=== PATIENT | female | born 1950 | race Caucasian/White ===

== ENCOUNTER 2019-08-02 01:59 | Emergency (ER) | payer MEDICARE, SELFPAY ==
[2019-08-02] VITALS (14 sets, daily range): BP systolic 140–177; BP diastolic 75–95; PULSE 65–80; RESP 16–18; TEMP 36.6–36.9; O2SAT 93–99; BMI 26.6
--- NOTE | 2019-08-02 02:05 | CT_ITS ---
PROCEDURE: CT HEAD/BRAIN WO CON CLINICAL INDICATION: stroke protocol Severe headache, left-sided weakness, hypertension COMPARISON: No exams were available for comparison TECHNIQUE: Axial images obtained. All CT scans at the facility use one or more dose reduction, viz: automated exposure control, ma/kV adjustment per patient size (including targeted exams where dose is matched to indication, i.e. head), or iterative reconstruction technique. FINDINGS: No midline shift, mass effect, intracranial hemorrhage, hydrocephalus, or extra-axial fluid collection is evident. There is no significant atrophy, the periventricular white matter appears normal. The calvarium has an unremarkable appearance. No mastoid effusion. No sinus air-fluid level. IMPRESSION: No acute intracranial finding Dictated by: Dr. Gal Villasenor MD 08/02/2019 10:[address] Gal Villasenor MD in [facility] 08/02/2019 10:34
--- NOTE | 2019-08-02 02:05 | XR_ITS ---
PROCEDURE: XR CHEST 2V CLINICAL HISTORY: stroke p left arm pain and left-sided weakness rotocol COMPARISON: No exams were available for comparison FINDINGS: The cardiomediastinal silhouette and pulmonary vascularity are within normal limits. Borderline emphysematous changes are noted with mild hyperexpansion of the lung esparza. There is no infiltrate and there is no pneumothorax. There is a double density seen through the cardiac shadow consistent with a small to moderate-sized hiatal hernia. There monitor lines overlying the chest. IMPRESSION: Mild COPD, no acute chest pathology noted Dictated by: Dr. Gal Villasenor MD 08/02/2019 08:[address] Gal Villasenor MD in [facility] 08/02/2019 08:35
--- NOTE | 2019-08-02 02:08 | ECG_ITS ---
APPROVED REPORT Exam: Resting ECG HR:71 bpm ECG Measurements Heart Rate 71 AXES DE 178 P 76 QRSd 82 QRS 60 QT 412 T 79 QTc 447 <Conclusion> Normal sinus rhythm Normal ECG Electronically signed by : Dave Lucas, 08/03/2019 17:28:29
--- NOTE | 2019-08-02 02:11 | PC.NURSE ---
pt transported to ct via stretcher and municipal bond trader. no new deficits. nih remains 0. gcs remains 15.
[2019-08-02 02:15] LABS: Basophils # 0.1 K/mm3 (0-0.2); Basophils % 0.6 % (0.1-2.0); Eosinophils # 0.1 K/mm3 (0.0-0.4); Eosinophils % 1.3 % (0.1-12.0); Hematocrit 37.7 % (37.0-47.0); Hemoglobin 12.5 g/dL (12.2-16.2); Lymphocytes # 4.4 K/mm3 (0.7-4.5); Mean Corpuscular HGB Conc 33.2 g/dL (31.8-35.4); Mean Corpuscular Hemoglobin 27.5 pg (27.0-31.2); Mean Corpuscular Volume 82.8 fl (81-99); Mean Platelet Volume 7.2 fl (7.4-10.4); Monocytes # 0.8 K/mm3 (0.1-1.0); Monocytes % 7.2 % (1.7-9.3); Neutrophils # 5.2 K/mm3 (1.8-7.8); Neutrophils % 48.9 % (37.0-80.0); Platelet Count 465 K/mm3 (142-424); Red Blood Count 4.55 M/mm3 (4.20-5.40); Red Cell Distribution Width 14.6 % (11.5-17.5); White Blood Count 10.6 K/mm3 (4.8-10.8)
[2019-08-02 02:22] LABS: Alanine Aminotransferase 21 U/L (12-78); Albumin Level 4.4 g/dl (3.5-5.0); Albumin/Globulin Ratio 1.4 (1.1-1.8); Alkaline Phosphatase 160 U/L (38-126); Anion Gap 13.9 mEq/L (5-15); Aspartate Amino Transferase 33 U/L (14-36); Bilirubin,Total 0.3 mg/dl (0.2-1.3); Blood Urea Nitrogen 14 mg/dl (7-17); Calcium 9.6 mg/dl (8.4-10.2); Carbon Dioxide 26 mmol/L (22.0-30.0); Chloride 93 mmol/L (98-107); Creatinine Clearance Estimated 63 mL/min (50-200); Estimated Glomerular Filt Rate 83 ml/min (>60); GFR (African American) 100 ML/MIN (>60); Globulin 3.1 g/dL (1.3-3.2); Glucose 87 mg/dl (74-100); Potassium 4.9 mmoL/L (3.5-5.1); Sodium 128 mmol/L (136-145); Total Protein,Serum 7.5 g/dl (6.3-8.2)
[2019-08-02 02:38] LABS: Troponin I < 0.01 ng/ml (0.00-0.034)
--- NOTE | 2019-08-02 03:01 | PC.NURSE ---
granddaughter informs this nurse that she will be making sure that md keeps this patient. states that she wants her admitted and monitored regardless of lab or radiology results .
--- NOTE | 2019-08-02 03:50 | PC.NURSE ---
pt ambulated without incident from room 6 to the bathroom closest to that room which was approx 60 feet total back to the bed. pt required no assistance with transfer.
[2019-08-02 03:57] LABS: Microscopic, Urine URINE MICROSCOPIC (MICROSCOPIC)
[2019-08-02 03:59] LABS: Appearance,Urine CLEAR (Clear); Bilirubin,Urine Negative (Negative); Blood, Urine Negative (Negative); Color,Urine YELLOW (Yellow); Glucose,Urine (UA) Negative (Negative); Ketones,Urine Negative (Negative); Leukocyte Esterase,Urine TRACE (Negative); Nitrate,Urine Negative (Negative); Protein,Urine Negative (Negative); Specific Gravity, Urine 1.015 (1.005-1.030); Urobilinogen,Urine 0.2 EU/dl (0.2)
[2019-08-02 04:47] LABS: Troponin I < 0.01 ng/ml (0.00-0.034)
--- NOTE | 2019-08-02 04:59 | HMH.EDNEU ---
ED Disposition Clinical Impression: Hypertensive emergency without congestive heart failure, Hyponatremia Transient cerebral ischemia Qualifiers: Transient cerebral ischemia type: unspecified Qualified Code(s): G45.9 - Transient cerebral ischemic attack, unspecified Diabetes mellitus Qualifiers: Diabetes mellitus type: type 2 Diabetes mellitus alf insulin use: unspecified tank terminal gauger insulin use status Diabetes mellitus complication status: with other specified complication Qualified Code(s): E11.69 - Type 2 diabetes mellitus with other specified complication Disposition: Xfer Short-Term Hosp Condition on Discharge: Good - Critical Care Critical Care Time: No Attestation: On 08/02/19, the high probability of a clinically significant, sudden or life threatening deterioration of the following system(s) required my full and direct attention, intervention and personal management. The time I documented below is in addition to time spent performing reported procedures but includes the following listed in this critical care notation. Medical Decision Making - Medical Records Medical records reviewed: Yes: I reviewed the patient's medical records. - Popeye Inquiry Pt receiving controlled substance: No Vital Signs: 08/02/19 01:57 08/02/19 02:10 08/02/19 03:06 Temperature 97.8 F 98.5 F Temperature Source Oral Oral Pulse Rate [Right Brachial] 68 80 67 Respiratory Rate 17 16 18 Blood Pressure [Right Arm] 165/75 H 163/95 H 159/87 H Blood Pressure Mean [Right Arm] 105 117 111 Blood Pressure Source [Right Arm] Automatic Cuff Blood Pressure Position [Right Arm] Sitting Sitting 02 Sat by Pulse Oximetry 98 98 95 Oxygen Delivery Method Room Air Room Air Room Air 08/02/19 04:14 08/02/19 05:11 08/02/19 05:19 Temperature Temperature Source Pulse Rate [Right Brachial] 66 67 68 Respiratory Rate 18 18 18 Blood Pressure [Right Arm] 163/81 H 174/92 H 170/86 H Blood Pressure Mean [Right Arm] 108 119 114 Blood Pressure Source [Right Arm] Blood Pressure Position [Right Arm] 02 Sat by Pulse Oximetry 99 96 97 Oxygen Delivery Method Room Air Room Air Room Air 08/02/19 05:29 Temperature Temperature Source Pulse Rate [Right Brachial] 65 Respiratory Rate 18 Blood Pressure [Right Arm] 165/79 H Blood Pressure Mean [Right Arm] 107 Blood Pressure Source [Right Arm] Blood Pressure Position [Right Arm] 02 Sat by Pulse Oximetry 96 Oxygen Delivery Method Room Air - Lab Data Lab results reviewed: Yes: I reviewed the patient's lab results. Lab Results 08/02/19 02:02: WBC 10.6, RBC 4.55, Hgb 12.5, Hct 37.7, MCV 82.8, MCH 27.5, MCHC 33.2, RDW 14.6, Plt Count 465 H, MPV 7.2 L, Neut % (Auto) 48.9, Lymph % (Auto) 42.0, Panola % (Auto) 7.2, Eos % (Auto) 1.3, Baso % (Auto) 0.6, Neut # (Auto) 5.2, Lymph # (Auto) 4.4, Panola # (Auto) 0.8, Eos # (Auto) 0.1, Baso # (Auto) 0.1 08/02/19 02:02: Sodium 128 L, Potassium 4.9, Chloride 93 L, Carbon Dioxide 26, Anion Gap 13.9, BUN 14, Creatinine 0.70, Estimated Creat Clear 63, Estimated GFR 83, Est GFR ( Amer) 100, Glucose 87, Calcium 9.6, Total Bilirubin 0.3, AST 33, ALT 21, Alkaline Phosphatase 160 H, Troponin I < 0.01, Total Protein 7.5, Albumin 4.4, Globulin 3.1, Albumin/Globulin Ratio 1.4 08/02/19 03:51: Urine Color Yellow, Urine Appearance Clear, Urine pH 7.0, Ur Specific Sherrill 1.015, Urine Protein Negative, Urine Glucose (UA) Negative, Urine Ketones Negative, Urine Blood Negative, Urine Nitrate Negative, Urine Bilirubin Negative, Urine Urobilinogen 0.2, Ur Leukocyte Esterase Trace, Urine WBC 3-5, Ur Squamous Epith Cells 3-5 08/02/19 04:12: Troponin I < 0.01 Result diagrams: 08/02/19 02:02 08/02/19 02:02 Orders (Tests/Meds): ED MEDICATIONS Discontinued Medications Generic Name Dose Route Start Last Admin Trade Name Freq PRN Reason Stop Dose Admin Ketorolac Tromethamine 30 mg 08/02/19 04:10 08/02/19 04:25 Toradol 30mg/Ml Vial IV 08/02/19 04:11 30
--- NOTE | 2019-08-02 05:25 | PC.NURSE ---
MD entering the room at this time to discuss diagnostic findings with patient and family. discussed with family that there were no acute findings for this visit that could be addressed in the ED tonight and that he recommended for the patient to follow up with her primary care doctor or her pelts skinner for the continuing treatment of her chronic diagnosed illness (hypertension). MD asked pt and family if they had any additional questions about pt's plan of care or discharge instructions. Pt family verbally aggressive towards MD at this time stating you did one damn blood test the whole time she was here and you're just going to send her home. she can't even walk and you're just letting her go home. she also stated she needs to see a becka pelts skinner or someone who will do something for her tonight- she needs monitored. At this time, MD reviewed with family all of the diagnostic testing preformed on the patient since her arrival. explained to the family that the cardiac work up that was done on the pt has no acute findings that needed immediate cardiology attention and he would ensure that the patient had an appointment first thing saturday morning with the pelts skinner. MD encouraged the family to keep a journal of pt BP readings so the cardiology visit could be thorough and she could be treated accordingly. At this time the family is demanding to be admitted to see cardiology. At this time, MD assessed LOC and gait of patient. MD continues to be apologetic and sympathetic to the pt family. MD asked the patient of her wishes for her plan of care, and the family interrupted saying I am the POA and i will be answering the questions. MD politely asked the patient of her wishes once again where patient expressed that she just wanted what her daughter wanted. left the room at this time to discuss admission with PCP. This event was witnessed per BENJA Larsen.
--- NOTE | 2019-08-02 05:28 | PC.NURSE ---
md in to speak with grdaughter and patient. granddaughter extremely aggressive according to staff available to overhear. arrangements made for admit.
--- NOTE | 2019-08-02 06:15 | PC.NURSE ---
call placed to [facility] for possible transfer and discussion between the supervisor boiler repair and dr bacon
--- NOTE | 2019-08-02 06:16 | PC.NURSE ---
call out to [facility] for pt transfer per MD
--- NOTE | 2019-08-02 06:20 | PC.NURSE ---
speaking to [facility]
--- NOTE | 2019-08-02 06:32 | PC.NURSE ---
accepted pt per emergency response coordinator
--- NOTE | 2019-08-02 06:45 | PC.NURSE ---
call received from [facility] requesting [facility]
--- NOTE | 2019-08-02 07:15 | PC.NURSE ---
report to jade miller at [facility]
--- NOTE | 2019-08-02 07:29 | PC.NURSE ---
Calling [facility] for transfer at this time.
--- NOTE | 2019-08-02 07:30 | PC.NURSE ---
pt alert and oriented x 4 pt denies any c/o at present. pt updated on plan of care
--- NOTE | 2019-08-02 08:30 | PC.NURSE ---
pt sleeping, easily aroused. denies any c/o at present
--- NOTE | 2019-08-02 08:49 | PC.NURSE ---
contacted [facility] to check on status of transfer, stated they will be up soon to transport pt, stated they just finished their morning check offs.
--- NOTE | 2019-08-02 09:08 | PC.NURSE ---
report to [facility].
== END 2019-08-02 09:12 | disposition short-term general hospital (02) ==
LOC: ER 02:06 → 2ND 06:52 → ER 07:46
PROVIDERS: Emergency Provider Emergency Medicine; PCP Nurse Practitioner Family
DX: I16.1 Hypertensive emergency (principal); E87.1 Hypo-osmolality and hyponatremia; G45.9 Transient cerebral ischemic attack, unspecified; E11.69 Type 2 diabetes mellitus with other specified complication; Z79.84 Long term (current) use of oral hypoglycemic drugs; Z88.2 Allergy status to sulfonamides; Z88.5 Allergy status to narcotic agent
CPT/HCPCS: 70450; 71046; 80053; 81001; 84484; 85025; 93005; 96374; 96375; 99284; 99285

== ENCOUNTER 2020-04-29 10:35 | Day surgery (SDC) | payer MEDICARE, MEDICAID, SELFPAY ==
[2020-04-27 14:23] VITALS: BMI 34.0
[2020-04-29 12:04] VITALS: BP 134/90; PULSE 63; RESP 16; TEMP 36.5; O2SAT 97
[2020-04-29 12:20] LABS: POC Glucose,Bedside 90 (70-110)
[2020-04-29 12:34] LABS: Coronavirus 19 IgG Antibody Positive (Negative); Coronavirus 19 IgM Antibody Negative (Negative)
[2020-04-29 12:46] VITALS: O2SAT 97
--- NOTE | 2020-04-29 13:09 | P.PN_ITS ---
[facility] Anesthesia Checklist - Patient Identification Patient Identification: Arm Band - Structural Data Admitted From: Home Planned Operative Procedure/s: EGD/Colonoscopy Consent for Planned Operative Procedure(s) Verified: Yes - Airway Assessment C-Spine Mobility Assessed: Yes TMJ Mobility Assessed: Yes Dentition: Good Dentition - Neurological Assessment Level of Consciousness: Awake - Anesthesia Plan Anesthesia Risk discussed: Yes Anesthesia Plan: Verified ASA Class: III Anesthesia Type: MAC [facility] History I have reviewed the patient's past medical history: Yes Medical History: Reports:: Diabetes Mellitus Type 2, Seizures Denies:: Cancer, Diabetes Mellitus Type 1, MRSA *Have you ever received a pneumonia vaccine?: Yes *Have you received a flu vaccine this season?: Yes Anesthesia experience/problems:: None Amputation: No Fractures: No - *Social History Smoking Status: Current every day smoker Tobacco Type: cigarettes # Packs/Day (cigarettes): 1 Alcohol Intake: never Substance Use Type: denies use *Occupational Status:: disabled *Travel in the last 8 weeks: None Family Hx:: Unable to obtain
--- NOTE | 2020-04-29 13:18 | HMH.PROC ---
[facility] Procedure Note Procedure Note:: Upper Endoscopy Procedure Report: Esophagogastroduodenoscopy with cold biopsies Endoscopost: Jose Nguyen II, MD Referring Physician: RENATE Herrmann Date of Procedure: 04/29/2020 Equipment: Olympus GIF 190 standard upper endoscope Sedation: MAC sedation Indications: Mrs. Araujo is a 69-year-old female with iron deficiency anemia. The patient did have hemoglobin 9.2 and hematocrit 29.1 by labs on 03/15/2020. The patient's iron saturation was 10% and total iron 39. She did have a blood transfusion while hospitalized at [facility] with respiratory failure secondary to COPD in February 2020. She has received 2 additional parenteral intravenous iron infusions. The patient is on Plavix and aspirin. She does have a history of heartburn and reflux which is controlled. She was diagnosed with a hiatal hernia with me 15 years ago. She reports no melena, hematochezia or bright red rectal bleeding. She reports no abdominal pain, weight loss or dysphagia. Procedure: Prior to the procedure, a history and physical exam was performed, and patient's medications and allergies were reviewed. The risks, benefits and alternatives of the sedation and procedure were discussed with the patient. All questions were answered and informed consent was obtained. The patient was brought to the procedure room. Patient identification and proposed procedure were verified by the physician and the nurse. The patient was placed in a left lateral decubitus position and the scope was passed under direct vision. Throughout the procedure, the patient's blood pressure, pulse, and oxygen saturations were monitored continuously. The upper GI endoscopy was accomplished without difficulty. The patient tolerated the procedure well. Findings: The scope was passed directly into the upper esophagus and advanced to the third portion of the duodenum. The post bulbar duodenum and duodenal bulb were normal with normal mucosa and conniventes. The scope was withdrawn through a normal duodenal bulb and pylorus into the stomach. There was moderate linear reactive gastropathy of the antrum and body of the stomach. Upon retroflexion there was a large 8 cm hiatal hernia. There was at least one linear Simone's erosion but no ulcerations. Biopsies were taken from the antrum and lesser curvature. The scope was then withdrawn into the esophagus. There was a distal Schatzki's ring. There was no evidence of Rbuio's esophagus or reflux esophagitis. There was evidence of tertiary contractions and presbyesophagus/esophageal dysmotility. The remainder of the esophageal mucosa was normal. Impression: 1. Nonerosive GERD with presbyesophagus/esophageal dysmotility 2. Large 8 cm hiatal hernia (1 single Simone's erosion) 3. Moderate linear reactive gastropathy Plan: I am not convinced that the upper endoscopic findings would result in her iron deficiency anemia. I will follow-up the biopsies. I will proceed with diagnostic colonoscopy.
--- NOTE | 2020-04-29 13:42 | [facility].PROC ---
[facility] Procedure Note Procedure Note:: Colonoscopy Procedure Report: Colonoscopy with APC ablation and cold snare polypectomy Endoscopist: Jose Nguyen II, MD Referring physician: RENATE Herrmann Date of Procedure: April 29, 2020 Equipment: Olympus 190 variable stiffness pediatric colonoscope Sedation: MAC sedation Indication: Mrs. Araujo is a 69-year-old female who is here for diagnostic colonoscopy secondary to moderate iron deficiency anemia. She was found to be anemic during her admission to [facility] in February 2020. Her hemoglobin/hematocrit on March 15, 2020 was 9.2 and 29.1 with an iron saturation of 10%. The patient does have normal kidney function with creatinine 0.84. The patient reports no bright red rectal bleeding or hematochezia. She is on Plavix and aspirin. She reports no abdominal pain, weight loss, change in her bowel habits or family history of colon cancer. Her last colonoscopy was 7 years ago (Dr. Salo You) and she had a couple of polyps removed but she states that this was otherwise normal. Procedure: Prior to the procedure, a history and physical exam was performed, and patient's medications and allergies were reviewed. The risks, benefits and alternatives of the sedation and procedure were discussed with the patient. All questions were answered and informed consent was obtained. The patient was brought to the procedure room. Patient identification and proposed procedure were verified by the physician and the nurse. The patient was placed in a left lateral decubitus position and the scope was passed under direct vision. Throughout the procedure, the patient's blood pressure, pulse, and oxygen saturations were monitored continuously. The colonoscopy was accomplished without difficulty. The patient tolerated the procedure well. Findings: On digital rectal examination there was normal rectal tone. There were no external hemorrhoids. The colonoscope was introduced through the anal canal to the rectum and advanced to the cecum. The ileocecal valve and appendiceal orifice were identified. The scope was advanced a short distance into the ileum which appeared grossly normal. The scope was then withdrawn into the colon. There were 3 AVMs/angiodysplasias in the cecum that were ablated/coagulated with APC (argon plasma coagulation). There were a total of 4 polyps (ascending x1 (5 mm), transverse x1 (5 mm), descending x1 (4 mm) and sigmoid x1 (4 mm)) which were all removed via cold snare polypectomy. There were scattered diverticuli throughout the descending and sigmoid colon (LEFT colon). The rectum itself was normal. Upon retroflexion within the rectum there were grade 1-2 internal hemorrhoids. The preparation was excellent throughout with [place] Preparation Score of 9. The cecal time was 15 minutes. Impression: 1. Cecal angiodysplasia/AVM (x3) status post APC ablation/coagulation 2. Colonic polyps x4 3. Left-sided diverticulosis 4. Grade 1-2 internal hemorrhoids Plan: The angiodysplasia/AVMs were nonbleeding. I did coagulate these but I am still not convinced this is the primary source of her iron deficiency anemia. Given the fact that she has been on Plavix and has a single Simone's erosion and AVMs, this could be multifactorial. I would recommend Hemoccult testing. If the patient is strongly Hemoccult positive, I would consider PillCam (video capsule enteroscopy). I will follow up the polyp histology. If the polyps are adenomatous, I would recommend repeat surveillance colonoscopy again in 5 years. I would encourage bulk fiber supplementation on a maintenance basis.
[2020-04-29 13:45] VITALS: BP 85/51; PULSE 56; RESP 18; O2SAT 95
[2020-04-29 13:55] VITALS: BP 101/53; PULSE 62; RESP 18; O2SAT 95
[2020-04-29 14:05] VITALS: BP 125/68; PULSE 56; RESP 18; O2SAT 95
[2020-04-29 14:15] VITALS: BP 148/82; PULSE 56; RESP 18; O2SAT 99
== END 2020-04-29 14:15 | disposition home or self-care (01) ==
LOC: OUTP 10:41
PROVIDERS: PCP Nurse Practitioner Family; Visit Provider Internal Medicine Gastroenterology
PROC: 0DJ08ZZ Inspection of Upper Intestinal Tract, Via Natural or Artificial Opening Endoscopic (ICD-10-PCS; CPT 43235; principal; 2020-04-29 12:30)
DX: K55.20 Angiodysplasia of colon without hemorrhage (principal); K63.5 Polyp of colon; K57.30 Diverticulosis of large intestine without perforation or abscess without bleeding; K64.0 First degree hemorrhoids; K21.9 Gastro-esophageal reflux disease without esophagitis; K22.4 Dyskinesia of esophagus; K22.2 Esophageal obstruction; K44.9 Diaphragmatic hernia without obstruction or gangrene; K31.9 Disease of stomach and duodenum, unspecified; Z86.010 Personal history of colon polyps; Z79.02 Long term (current) use of antithrombotics/antiplatelets; Z79.82 Long term (current) use of aspirin; Z86.16 Personal history of COVID-19; Z87.19 Personal history of other diseases of the digestive system; D50.9 Iron deficiency anemia, unspecified
CPT/HCPCS: 43239; 45385; 45388; 36415; 82962; 86328; 88305; C2618

== ENCOUNTER → 2020-05-14 12:19 | Outpatient (CLI) | payer MEDICARE, MEDICAID, SELFPAY | PROVIDERS: Visit Provider Internal Medicine Gastroenterology | DX: D64.9 Anemia, unspecified (principal) ==

== ENCOUNTER → 2020-05-15 12:13 | Outpatient (CLI) | payer MEDICARE, MEDICAID, SELFPAY | PROVIDERS: Visit Provider Internal Medicine Gastroenterology | DX: D64.9 Anemia, unspecified (principal) ==

== ENCOUNTER → 2020-05-16 11:00 | Outpatient (CLI) | payer MEDICARE, MEDICAID, SELFPAY | PROVIDERS: Visit Provider Internal Medicine Gastroenterology | DX: D64.9 Anemia, unspecified (principal) ==

== ENCOUNTER 2024-11-13 08:52 | Outpatient (CLI) | payer MEDICARE, MEDICAID, SELFPAY ==
--- OUTSIDE RECORDS SUMMARY | 2020-04-08 09:46 | XMS_ITS | Encounter Summary ---
Author Organization [facility] Address [address] [place] [address] Care Team Providers Care Process Engineering Intern Name Role Phone MontemayorMegan frankel JAIR Primary Care Provider [phone] Encounter Details Date Type Department Care Team (Late st Contact Info) Description 04/08/2020 8:46 AM EST Hospital Encounter [facility] PUL[facility]ICAL [facility]ARE MEDICINE [address] [place] [phone] Social History Tobacco Use Types Packs/Day [...] Narrative 04/08/2020 10:21 AM EST Colleen Araujo [id number] 04/08/2020 Chest X-Ray PA & Lateral Indication: [...] documented as of this encounter Care Teams Process Engineering Intern Relationship Specialty Start Date End Date Megan Montemayor APRN [address] [place] [address] PCP - General Nurse Practitioner 08/02/19 documented as of this encounter
[2024-11-13 20:36] LABS: Hematocrit 42.9 % (37.0-47.0); Hemoglobin 12.5 g/dL (12.2-16.2); Immature Granulocytes % 0.2 %; Mean Corpuscular HGB Conc 29.1 g/dL (31.8-35.4); Mean Corpuscular Hemoglobin 27.5 pg (27.0-31.2); Mean Corpuscular Volume 94.3 fl (81-99); Nucleated Red Blood Cells % 0 %; Platelet Count 323 K/mm3 (142-424); Red Blood Count 4.55 M/mm3 (4.20-5.40); Red Cell Distribution Width-SD 45.1 fL; White Blood Count 20.0 K/mm3 (4.8-10.8)
[2024-11-13 21:03] LABS: Total Cells Counted 100
[2024-11-13 21:04] LABS: RBC Morphology Normal
[2024-11-13 21:31] LABS: Alanine Aminotransferase 27 U/L (12-78); Albumin Level 3.9 g/dl (3.5-5.0); Albumin/Globulin Ratio 1.7 (1.1-1.8); Alkaline Phosphatase 148 U/L (38-126); Anion Gap 17.4 mEq/L (5-15); Aspartate Amino Transferase 26 U/L (14-36); Bilirubin,Direct 0.5 mg/dl (0.0-0.4); Bilirubin,Indirect 0.1 mg/dL (0.0-0.9); Bilirubin,Total 0.6 mg/dl (0.2-1.3); Bilirubin,Unconjugated 0.1 mg/dL (0.0-1.1); Blood Urea Nitrogen 19 mg/dl (7-17); Calcium 9.0 mg/dl (8.4-10.2); Carbon Dioxide 27 mmol/L (22.0-30.0); Chloride 103 mmol/L (98-107); Creatinine,Serum 0.90 mg/dl (0.52-1.04); Estimated Glomerular Filt Rate 61 ml/min (>60); GFR (African American) 74 ML/MIN (>60); Globulin 2.3 g/dL (1.3-3.2); Glucose 80 mg/dl (74-100); Potassium 5.4 mmoL/L (3.5-5.1); Sodium 142 mmol/L (136-145); Total Protein,Serum 6.2 g/dl (6.3-8.2)
[2024-11-13 22:15] LABS: Hepatitis C Ab Qual. W/ RFX NEGATIVE (Negative)
[2024-11-15 07:10] LABS: Hepatitis B Surface Antigen Negative (Negative)
--- OUTSIDE RECORDS SUMMARY | 2024-11-16 08:55 | XMS_ITS | Continuity of Care Document ---
Author Organization [place] - [place] Address [address] [place] [address] Assessment Encounter Date Assessment Date Assessment LastModified by Organization Details LastModified Time 10/23/2024 10/23/2024 Patient presente d to office today for their Medicare Annual Wellness Visit. Education was provided on healthy nutrition, including a diet rich in fruits and vegetables, minimizing simple carbohydrates, salt, and saturated fats. Encouraged regular cardiovascular exercise such as walking at least 30 minutes daily, 5 times per week. Emphasized preventive health measures and educated pt on fall prevention and community-based lifestyle interventions to help reduce health risks and promote healthy living. Female patient with history of COPD and diabetes, presenting with persistent cold symptoms since August, including cough with productive sputum, runny nose, and allergies. Upper Respiratory Infection with Possible COPD Exacerbation Assessment: Patient reports persistent cold symptoms since August, including cough with productive sputum, runny nose, and allergies. Currently using Zyrtec, Singulair, and Azelastine nasal spray for allergy management. Physical examination reveals coarseness and wheezing in the right lung base, suggesting a possible COPD exacerbation. However, the overall presentation is more consistent with a cold and allergies rather than a severe COPD exacerbation. Plan: - Prescribe Azithromycin for 5 days - Prescribe oral steroids for 5 days - Continue current inhalers and NAB treatments - Continue Singulair and Zyrtec for allergy management - Schedule low-dose chest CT at [place] - Obtain urinalysis to rule out UTI Diabetes Mellitus, Type 2 Assessment: Patient's glycemic control appears to be well-managed with a recent A1c of 6.4%. No reported issues with swelling feet, ankle sores, or other diabetic complications. Plan: - Continue current diabetes management - Diabetic eye exam scheduled for November 13 Preventive Care Assessment: Patient is due for annual preventive screenings and vaccinations. Plan: - Schedule mammogram at [place] - Schedule annual low-dose chest CT at [place] - Advise patient to receive flu vaccine starting November 11 - Obtain blood work Nocturia Assessment: Patient reports urinary frequency every 1-2 hours for the past 2-3 nights. Denies pain with urination. Plan: - Obtain urinalysis to rule out UTI Depression Assessment: Patient reports good mood control on current medication regimen of Wellbutrin and Zoloft. Plan: - Continue current antidepressant medications: Wellbutrin and Zoloft Not available 10/23/2024 09:37:00 Plan of Treatment Reminders Order Date Submit Date Provider Last Modified By Organization Details Last Modified Time Details Appointments FOLLOW UP 30 2025 09:00A M Ayleen Montemayor APRN Not available Not available Not available Lab urinalysi s complete, reflex culture 2024 025 [facility] [address] [place] [address], [id number], 10/27/2024 19:07:26 HbA1c (hemoglob in A1c), blood [address], [address], 10/23/2024 08:33:40 CMP, serum or plasma 2024 025 [facility] [address] [place] [address], [id number], 10/27/2024 19:07:26 CBC w/ auto diff 2024 025 [facility] [address] [place] [address], [id number], 10/27/2024 19:07:25 Referral None recorded. Procedures None recorded. Surgeries None recorded. Imaging MAMMO, screening , digital, bilateral - same day as LDCT please [address] Centralized Scheduling, [address] , [place], [address], 11/06/2024 13:08:29 LDCT, chest, for lung cancer screening - Secondary dx: F17.210; same day as mammo please [address] Centralized Scheduling, [address] [place], [address], 11/06/2024 13:08:09 Medication Orders azithromy raghav 250 mg tablet 2024 025 [facility], [address] [place] [address], [id number], 10/23/2024 15:15:52 prednison e 20 mg tablet 2024 025 [facility], [address] [place] [address], [id number], 10/23/2024 15:15:53 Patient TargetsNo targets recorded. Patient Instructions Encounter Date Encounter Id Patient Instructions Last Modified By Organization Details Last Modified Time 10/23/2024 [id number] Quitting Tobacco : Care Instructions Not available 10/23/2024 08:33:39 Discussed and explained advance directives such as standard forms to the patient and caregiver. Face to face discussion lasted for a duration of _5__ minutes. Not available 10/23/2024 08:25:49 Reason for Referral None Reported. Results Created Date Observation Date Name Description Value Unit Range Abnormal Flag Note LastModifiedBy Organization Detail LastModifiedTime 10/24/1910/23/2024 HbA1c (hemo globi n A1c), blood HbA1c 6.4 Not Available [address], [address], 10/23/2024 08:20:45 Result Notes None recorded. Problems Name Problem SNOMED Code Status Onset Date Resolution Date Notes Provider Name and Address Organization Details Recorded Time Tobacco dependen ce caused by cigarett es [id number] 719706 Active 2019 Problem Code: F17.210; Problem Code Type: ICD-10; Megan Montemayor APRN [address] [place], [address] , [employer] 5 09:30:26 Type 2 diabetes mellitus without complica tion 362100353 Active 2019 Not Available [facility] 3 09:26:15 Atherosc lerosis of coronary artery without angina pectoris 83336179449 4103 Active 2019 Not Available [facility] 3 09:26:15 Chronic obstruct davida pulmonar y disease 14186430 Active 2019 Problem Code: J44.9; Problem Code Type: ICD-10; Not Available [facility] 3 09:26:15 Finding of general energy 846701115 Completed 201908/30/2019 Problem Code: R53.83; Problem Code Type: ICD-10; Megan Montemayor APRN [address] [place], [address] , [employer] 2 15:54:08 Body mass index 30+ - obesity 988447645 Completed 201911/29/2020 WLC89Lpe es: 'Z68.3'; Megan Montemayor APRN [address] [place], [address] , [employer] 5 09:36:22 Nausea and vomiting 41214341 Completed 201904/18/2022 Problem Code: R11.2; Problem Code Type: ICD-10; MAXINE MYNEAR null, [employer] 3 09:26:06 Diarrhea 31561036 Completed 201904/18/2022 Problem Code: R19.7; Problem Code Type: ICD-10; MAXINE MYNEAR null, [employer] 3 09:26:06 Elevated blood-pr essure reading without diagnosi s of hyperten markell 425194216 Completed 201908/30/2019 Not Available [facility] 2 22:17:12 Hyperten sive disorder 44826626 Active 2019 Problem Code: I10; Problem Code Type: ICD-10; Not Available [facility] 3 09:26:15 Transien t cerebral ischemia 133133475 Active 2019 Not Available [facility] 3 09:26:15 Disorder of upper respirat ory system 915905176 Completed 201912/15/2019 Problem Code: J06.9; Problem Code Type: ICD-10; Megan Montemayor APRN [address] [place], [address] , [employer] 2 15:54:05 Herpes zoster 7837306 Completed 201903/11/2020 Problem Code: B02.9; Problem Code Type: ICD-10; Not Available [facility] 2 22:17:10 Influenz a vaccine needed 36931544340 06 Completed 201907/22/2020 Problem Code: Z23; Problem Code Type: ICD-10; Megan Montemayor APRN [address] [place], [address] , [employer] 2 15:54:17 Herpes zoster 1396613 Completed 201903/11/2020 Problem Code: B02.9; Problem Code Type: ICD-10; Not Available [facility] 2 22:17:10 Screenin g mammogra phy Completed 201903/11/2020 Problem Code: Z12.31; Problem Code Type: ICD-10; Megan Montemayor APRN [address] [place], [address] , [employer] 2 15:54:21 Gastroes ophageal reflux disease without esophagi tis 526550391 Active 2020 Not Available [facility] 3 09:26:15 Acute exacerba tion of chronic obstruct davida pulmonar y disease 191145220 Completed 202003/11/2020 Problem Code: J44.1; Problem Code Type: ICD-10; Megan Montemayor APRN [address] [place], [address] , [employer] 4 08:30:26 Acute-on -chronic respirat ory failure 61247943 Completed 202011/29/2020 Problem Code: J96.21; Problem Code Type: ICD-10; Not Available [facility] 2 22:17:11 Iron deficien cy anemia 03080215 Active 2020 Problem Code: D50.9; Problem Code Type: ICD-10; Not Available [facility] 3 09:26:15 Herpes zoster 1328067 Active 2020 Problem Code: B02.9; Problem Code Type: ICD-10; Not Available [facility] 3 09:26:15 Influenz a vaccine needed 30752650369 06 Completed 202012/30/2020 Problem Code: Z23; Problem Code Type: ICD-10; Megan Montemayor APRN [address] [place], [address] , [employer] 2 15:54:17 Body mass index 30+ - obesity 321539024 Active 2020 Problem Code: Z68.34; Problem Code Type: ICD-10; Megan Montemayor APRN [address] [place], [address] , [employer] 5 09:36:22 Moderate recurren t major depressi on 36703704 Active 2023 Megan Montemayor APRN [address] [place], [address] , [employer] 4 09:35:42 Type 2 diabetes mellitus 28371667 Active 2024 Megan Montemayor APRN [address] [place] [address], [address] , [employer] 5 09:13:27 Problem Notes None recorded. Procedures Surgical History Date Name Laterality Status Provider Name and Address Organization Details Recorded Time 4 Most Recent Mammogram completed MAXINE MORTON [employer] 11/13/2023 09:05:32 section completed [facility] 08/29/2022 11:48:21 Carpal Tunnel Surgery completed JANY [employer] 08/29/2022 11:48:37 Imaging Results None recorded. Procedure Notes None recorded. Medical Equipment None Reported. Allergies Allergen ID Allergen Name Allergen Category Reaction Reaction Severity Criticality Documentation Date Start Date Code Code System Note Provider Name and Address Organization Details Recorded Time 76672 Substance with morphinan structure and opioid receptor agonist mechanism of action (substanc e) medicatio n Not available Not available Not available 10/17/2021 42238 9000 SNOMED Catherine Clay archana, [employer] 3 13:59:54 21850 sulfameth azine medicatio n Not available Not available Not available 10/17/2021 43453 RxNorm Not Available [facility] 2 22:56:51 18487 acetamino phen / hydrocodo ne medicatio n Not available Not available Not available 10/17/2021 17007 2 RxNorm Not Available [facility] 2 22:56:51 04348 codeine medicatio n Not available Not available Not available 10/17/2021 2670 RxNorm Not Available [facility] 2 22:56:51 57583 acetamino phen / oxycodone medicatio n Not available Not available Not available 10/17/2021 72214 3 RxNorm Not Available [facility] 2 22:56:51 Medications Name Sig Start Date Stop Date Status Note LastModified by Organization Details LastModified Time losartan 50 mg tablet TAKE 1 TABLET BY MOUTH EVERY DAY active Not Available Not Available No t Available metformin 500 mg tablet TAKE ONE TABLET BY MOUTH EVERY DAY with MEAL 11/12 completed Not Available Not Available Not Available bupropion HCl SR 150 mg tablet,12 hr sustained-r elease TAKE ONE TABLET BY MOUTH TWICE DAILY active Not Available Not Available No t Available atorvastati n 80 mg tablet TAKE ONE TABLET BY MOUTH AT BEDTIME active Not Available Not Available No t Available potassium chloride ER 10 mEq capsule,ext ended release TAKE 1 CAPSULE BY MOUTH EVERY DAY 03/06 completed Not Available Not Available Not Available gabapentin 600 mg tablet take 1 tablet (600 mg) by oral route 1 time per day 08/13 completed Not Available Not Available Not Available doxycycline hyclate 100 mg capsule TAKE ONE CAPSULE BY MOUTH TWICE DAILY FOR 10 DAYS with MEAL FOR pneumonia 11/12 completed Not Available Not Available Not Available nicotine 14 mg/24 hr daily transdermal patch Apply 1 patch every day by transderm al route. 11/12 completed Not Available Not Available Not Available ipratropium 0.5 mg-albutero l 3 mg (2.5 mg base)/3 mL nebulizatio n soln inhale 3 millilite rs by nebulizat ion route 4 times per day 2020 active Not Available Not Available Not Avai lable Depo-Medrol 40 mg/mL suspension for injection Take 1 mL by injection route. 11/09 completed Not Available Not Available Not Available azithromyci n 250 mg tablet TAKE 2 TABLETS BY MOUTH ON DAY 1, THEN TAKE 1 TABLET DAILY ON DAYS 2-5 active Not Available Not Available No t Available cetirizine 5 mg tablet take 1 tablet (5 mg) by oral route once daily for allergies 03/23 completed Not Available Not Available Not Available metoprolol tartrate 100 mg tablet take 1 tablet (100 mg) by oral route 2 times per day 05/25 completed Not Available Not Available Not Available valacyclovi r 1 gram tablet take 1 tablet (1,000 mg) by oral route 3 times per day for 7 days 10/25 completed Not Available Not Available Not Available meloxicam 15 mg tablet TAKE ONE TABLET BY MOUTH EVERY DAY NEEDED active Not Available Not Available No t Available dextrometho maryhan-guadolfof enesin 10 mg-100 mg/5 mL oral liquid take 10 millilite rs by oral route every 4 hours as needed 11/17 completed Not Available Not Available Not Available ondansetron HCl 4 mg tablet TAKE TWO TABLETS BY MOUTH TWICE DAILY NEEDED active Not Available Not Available No t Available prednisone 20 mg tablet TAKE 2 TABLETS BY MOUTH EVERY DAY with MEAL FOR 5 DAYS active Not Available Not Available No t Available isosorbide mononitrate ER 30 mg tablet,exte nded release 24 hr TAKE ONE TABLET BY MOUTH EVERY DAY active Not Available Not Available No t Available sertraline 100 mg tablet TAKE ONE TABLET BY MOUTH NIGHTLY AT BEDTIME active Not Available Not Available No t Available hydralazine 25 mg tablet take 1 tablet (25 mg) by oral route 3 times per day with food 05/25 completed Not Available Not Available Not Available potassium chloride ER 10 mEq tablet,exte nded release TAKE ONE TABLET BY MOUTH EVERY OTHER DAY 2024 active Not Available Not Available Not Avai lable clopidogrel 75 mg tablet TAKE ONE TABLET BY MOUTH EVERY DAY 2024 active Not Available Not Available Not Avai lable valacyclovi r 500 mg tablet TAKE ONE TABLET BY MOUTH ONCE DAILY active Not Available Not Available No t Available Hem[employer] Ultra Test strips use to test twice daily active Not Available Not Available No t Available amlodipine 10 mg tablet TAKE ONE TABLET BY MOUTH EVERY DAY FOR BLOOD PRESSURE active Not Available Not Available No t Available benzonatate 100 mg capsule take 1 capsule (100 mg) by oral route 3 times per day prn cough 08/02 completed Not Available Not Available Not Available doxycycline monohydrate 100 mg capsule take 1 capsule (100 mg) by oral route 2 times per day 11/17 completed Not Available Not Available Not Available pantoprazol e 40 mg tablet,deniz yed release TAKE ONE TABLET BY MOUTH EVERY DAY FOR stomach 03/23 completed Not Available Not Available Not Available esomeprazol e magnesium 40 mg capsule,del ayed release TAKE ONE CAPSULE BY MOUTH DAILY active Not Available Not Available No t Available lansoprazol e 30 mg capsule,del ayed release take 1 capsule (30 mg) by oral route twice daily before a meal 04/07 completed Not Available Not Available Not Available lidocaine 5 % topical patch APPLY 1 PATCH BY TOPICAL ROUTE ONCE DAILY (MAY WEAR UP TO 12HOURS.) active Not Available Not Available No t Available losartan 25 mg tablet take 2 tablet (25 mg) by oral route twice daily 07/15/ 2020 11/18 /2022 completed Not Available Not Available Not Available metoprolol tartrate 50 mg tablet TAKE ONE TABLET BY MOUTH TWICE DAILY with meals active Not Available Not Available No t Available nicotine 21 mg/24 hr daily transdermal patch Apply ONE PATCH topically every DAY 10/24 completed Not Available Not Available Not Available hydrochloro thiazide 12.5 mg capsule take 1 capsule (12.5 mg) by oral route once daily 05/15 completed Not Available Not Available Not Available nitroglycer in 0.[address] 1 tablet as needed by sublingua l route. active Not Available Not Available No t Available sertraline 25 mg tablet take 1 tablet (25 mg) by oral route once daily 10/25 completed Not Available Not Available Not Available omeprazole 20 mg capsule,del ayed release TAKE 1 CAPSULE BY MOUTH 2 TIMES PER DAY 07/11 completed Not Available Not Available Not Available montelukast 10 mg tablet TAKE 1 TABLET BY MOUTH ONCE DAILY IN THE EVENING active Not Available Not Available No t Available Aspir-81 mg tablet,deniz yed release take 1 tablet (81 mg) by oral route once daily 08/02 completed Not Available Not Available Not Available cefuroxime axetil 500 mg tablet TAKE 1 TABLET BY MOUTH TWICE DAILY 12/04 completed Not Available Not Available Not Available methylpredn isolone 4 mg tablets in a dose pack Take 1 dose pack every day by oral route as directed. 07/11 completed Not Available Not Available Not Available ondansetron 4 mg disintegrat ing tablet PLACE 1 TABLET ON TONGUE EVERY 4-6 HOURS NEEDED FOR NAUSEA 05/15 completed Not Available Not Available Not Available cefdinir 300 mg capsule Take 1 capsule every 12 hours by oral route with meals for 10 days. 02/14 completed Not Available Not Available Not Available fluticasone propionate 50 mcg/actuati on nasal spray,suspe nsion [place] 1 spray every day by intranasa l route. 03/23 completed Not Available Not Available Not Available metformin ER 500 mg tablet,exte nded release 24 hr TAKE ONE TABLET BY MOUTH EVERY DAY active Not Available Not Available No t Available sertraline 50 mg tablet TAKE ONE TABLET BY MOUTH EVERY DAY 02/06 completed Not Available Not Available Not Available doxycycline hyclate 100 mg tablet Take 1 tablet twice a day by oral route with meal(s) for 10 days, for pneumonia . 11/12 completed Not Available Not Available Not Available diazepam 5 mg tablet take 1 tablet (5 mg) by oral route 2 times per day PRN 08/13 completed Not Available Not Available Not Available FerrouSul 325 mg (65 mg iron) tablet take 1 tablet (325 mg) by oral route every other day 03/23 completed Not Available Not Available Not Available clindamycin 1 % lotion APPLY A THIN LAYER TO THE AFFECTED AREA(S) BY TOPICAL ROUTE 2 TIMES PER DAY 09/24 completed Not Available Not Available Not Available metoprolol tartrate 25 mg tablet take 1 tablet (25 mg) by oral route 2 times per day 05/11 completed Not Available Not Available Not Available valacyclovi r 03/06 completed Not Available Not Available Not Available Tylenol 08/13 completed Not Available Not Available Not Available Calcium+D 2020 active Not Available Not Available Not Avai lable ProAir HFA 90 mcg/actuati on aerosol inhaler inhale 1 - 2 puffs (90 - 180 mcg) by inhalatio n route every 4 hours as needed 03/23 completed Not Available Not Available Not Available Symbicort 160 mcg-4.5 mcg/actuati on HFA aerosol inhaler inhale 2 puffs by inhalatio n route 2 times per day in the morning andevenin g 08/29 completed Not Available Not Available Not Available budesonide- formoterol HFA 80 mcg-4.5 mcg/actuati on aerosol inhaler inhale 2 puffs by inhalatio n route 2 times per day in the morning andevenin g 05/25 completed Not Available Not Available Not Available Jardiance 10 mg tablet TAKE ONE TABLET BY MOUTH ONCE DAILY active Not Available Not Available No t Available Incruse Ellipta 62.5 mcg/actuati on powder for inhalation inhale 1 puff (62.5 mcg) by inhalatio n route once daily at the same time each day 08/29 completed Not Available Not Available Not Available bupropion HCl 150 mg tablet,12 hr sustained-r elease(smok ing deterrent) Take 1 tablet twice a day by oral route. 03/23 completed Not Available Not Available Not Available Trelegy Ellipta 100 mcg-62.5 mcg-25 mcg powder for inhalation Inhale 1 puff by mouth every day. active Not Available Not Available No t Available Shingrix (PF) 50 mcg/0.5 mL intramuscul ar suspension, kit inject 0.5 millilite r (50 mcg) by intramusc ular route once 03/11 completed Not Available Not Available Not Available OneTouch Ultra2 Meter use to test blood sugars twice daily active Not Available Not Available No t Available OneTouch Delica Plus Lancet 33 gauge USE ONE strip twice peck active Not Available Not Available No t Available Breztri Aerosphere 160 mcg-9mcg-4. 8mcg/actuat ion HFA aerosol inhaler Inhale 2 puffs by mouth twice a day. 03/23 completed Not Available Not Available Not Available Vitals Date Recorded Body height Body mass index (BMI) Body weight Body temperature Heart rate Oxygen saturation Oxygen saturation in Arterial blood by Pulse oximetry Systolic And Diastolic Systolic And Diastolic Provider Name and Address Organization Details Last Updated DateTime 5 154.94 cm 35.1 kg/m2 76353.1 8 g 98.8 [degF] 69 /min 91 % 91 % 125/45 mm[Hg] 117/52 mm[Hg] MAXINE MORTON [employer] 08:20:01 Social History Question Answer Notes LastModified by Organizat ion Details LastModified Time Tobacco Smoking Status Former Smoker Megan Montemayor, MANAGER [employer]CR[employer] [address] [facility], [place], [address], [employer], [employer]. 05/08/2023 10:40:42 Do You Have An Advance Directive? No Information not available 11/06/2021 Is Your Home Air Conditioned? Yes Information not available 11/06/2021 Are You Blind Or Do You Have Difficulty Seeing? No Information not available 11/06/2021 What Is Your Level Of Caffeine Consumption? Occasional [email or web address] Information not available 08/29/2022 Are You A Caregiver? No Information not available 11/06/2021 In The 14 Days Before Symptom Onset, Have You Had Close Contact With A Laboratory-confir med COVID-19 While That Case Was Ill? No Information not available 11/06/2021 In The 14 Days Before Symptom Onset, Have You Had Close Contact With A Person Who Is Under Investigation For COVID-19 While That Person Was Ill? No Information not available 11/06/2021 Have You Been To An Area Known To Be High Risk For COVID-19? No Information not available 11/06/2021 Are You Deaf Or Do You Have Serious Difficulty Hearing? No Information not available 11/06/2021 What Type Of Diet Are You Following? DIABETIC Information not available 11/06/2021 Have There Been Any Changes To Your Family Or Social Situation? No Information no t available 11/06/2021 When Did You Quit Smoking? 1-5yearssincel [email or web address] Information not available 05/08/2023 Are There Any Guns Present In Your Home? No Information not available 11/06/2021 Do You Have A Medical Power Of Motor Grader Operator? No Information not available 11/06/2021 What Was The Date Of Your Most Recent Tobacco Screening? 10/23/2024 Information not available 10/23/2024 What Is Your Current Pack Years? [email or web address] ars [email or web address] Information not available 08/29/2022 Do You Have Any Pets? No Information not available 11/06/2021 What Is Your Relationship Status? Information not available 11/06/2021 Do You Use Your Seat Belt Or Car Seat Routinely? Yes Information not available 11/06/2021 Do You Have Smoke And Carbon Monoxide Detectors In Your Home? Yes Information not available 11/06/2021 At What Age Did You Start Smoking Tobacco? 19 Information not available 11/06/2021 Are You Passively Exposed To Smoke? Yes Information no t available 11/06/2021 Are There Any Smokers In Your House? Yes Information not available 11/06/2021 How Much Tobacco Do You Smoke? No Information not available 05/08/2023 Do You Participate In Social Media? No Information not available 11/06/2021 Do You Use Sunscreen Routinely? No Information not available 11/06/2021 Has Tobacco Cessation Counseling Been Provided? Yes Information not available 11/06/2021 On What Date Was Tobacco Cessation Counseling Provided? 04/10/2024 [email or web address] Information not available 04/10/2024 How Many Years Have You Smoked Tobacco? 51 Information not available 11/06/2021 Have You Recently Traveled Abroad? No Information not available 11/06/2021 Do You Have Difficulty Walking Or Climbing Stairs? No Information not available 11/06/2021 Are You Currently In School? No Information not available 11/06/2021 Do You Have Any Dietary Restrictions? Yes Information not available 11/06/2021 Sex: Female Functional Status Question Answer Note LastModified by [employer] ion Details LastModified Time Do you use any illicit or recreational drugs? No Information not available 11/06/2021 Do you or have you ever used any other forms of tobacco or nicotine? No Information not available 11/06/2021 What is your level of alcohol consumption? None Information not available 11/06/2021 Are you currently employed? No Information not available 11/06/2021 Do you have transportation difficulties? No Information not available 11/06/2021 Do you have difficulty doing errands alone? No Information not available 11/06/2021 Are you able to care for yourself independently? Yes Information not available 11/06/2021 Do you have difficulty dressing, bathing, grooming, or toileting? No Information not available 11/06/2021 Mental Status Question Answer Note LastModified by Organization D etails LastModified Time Do you have difficulty concentrating, remembering or making decisions? No Information no t available 11/06/2021 Family History Relationship Description Onset Age of this Age Resolved Age Notes LastModified by Organization Details LastModified Time Paternal Aunt Family history of breast cancer [email or web address] Not available 11:46:38 Mother Family history of Hypertension Not available 08/29/2022 11:46:48 Mother Family history of hyperlipidem ia [id number] Not available 11:46:59 Mother Family history of diabetes mellitus type 2 [id number] Not available 11:47:02 Sister Family history of breast cancer [id number] Not available 11:46:41 Brother Family history of Hypertension [id number] Not available 08/29/2022 11:46:54 Father Family history of malignant neoplasm of lung [id number] Not available 11:47:24 Medical History Condition Response Coronary Artery Disease Y Emergency room visit since last appointm ent. N Depression Y COPD Y Acid Reflux (GERD) Y High Cholesterol Y Headaches Y Hospitalizations N Anemia Y Diabetes Y Hypertension Y Gynecological History Statement/Question Response Date of Last Pap Smear Most Recent Mammogram 10/24/2023 Obstetrics History GPAL:G 0 P 0 0 0 0 Immunizations Vaccine Type Date Status Note Provider Nam e and Address Organization Details Recorded Time Influenza, high-dose, quadrivalent, PF 3 completed Megan Montemayor APRN [address] [place], [address], [employer] 11/09/2022 10:49:32 Influenza, split virus, quadrivalent, PF 1 completed Not Available [facility] 09/17/2022 09:26:16 pneumococcal polysaccharide PPV23 0 completed Not Available [facility] 09/17/2022 09:26:16 Influenza, split virus, quadrivalent, preservative 0 completed Not Available [facility] 09/17/2022 09:26:15 zoster recombinant 1 completed Not Available [facility] 09/17/2022 09:26:15 RSV, recombinant, protein subunit RSVpreF, adjuvant reconstituted, 0.5 mL, PF 4 completed Megan Montemayor APRN [address] [place], [address], [employer] 05/08/2023 10:57:46 Influenza, high-dose, trivalent, PF 4 completed Megan Montemayor APRN [address] [place] [address], [phone], [facility] [employer] 11/17/2023 21:24:14 COVID-19, mRNA, LNP-S, PF, 100 mcg/0.5mL dose or 50 mcg/0.25mL dose 1 completed Not Available [facility] 09/17/2022 09:26:16 COVID-19, mRNA, LNP-S, PF, 100 mcg/0.5mL dose or 50 mcg/0.25mL dose 1 completed Not Available [facility] 09/17/2022 09:26:16 Influenza, split virus, quadrivalent, PF 2 completed Megan Montemayor APRN [address] [place] [address], [phone], [facility] [employer] 11/07/2021 09:05:09 Past Encounters Encounter ID Performer Location Encounter Start Date Encounter Closed Date Diagnosis/Indication Diagnosis SNOMED-CT Code Diagnosis ICD10 Code Diagnosis IMO Codes Diagnosis Note [id number] Meganarmand Montemayor[address] [address] 10/23/2024 08:03:13 10/23/2024 12:09:18 Type 2 diabetes mellitus without complication 276217624 E11.9 Dm diet, and increased activity encouraged . Chronic ob structive pulmonary disease 00540596 J44.9 Tx with Zpak and steroids, continue pulmonary toilet Iron defic iency anemia 90527166 D50.9 Recheck CBC today. Hypertensive disorder 38 799918 I10 BP well controlled today Moderate r ecurrent major depression 39576530 F33.1 Mood well controlled on wellbutrin and zoloft. Screening for malignant neoplasm of respiratory tract 796914447 Z12.2 Screening mammography 24 143736 Z12.31 [id number] History an d physical examination, annual for health maintenance 55519029 Z00.00 [id number] Patient presented to office today for their Medicare Annual Wellness Visit. Education was provided on healthy nutrition, including a diet rich in fruits and vegetables , minimizing simple carbohydra genaro, salt, and saturated fats. Encouraged regular cardiovasc ular exercise such as walking at least 30 minutes daily, 5 times per week. Emphasized preventive health measures and educated pt on fall prevention and community- based lifestyle interventi ons to help reduce health risks and promote healthy living. Increased frequency of urination 281030416 R35.0 959002 Tobacco de pendence caused by cigarettes [id number] 2687532 F17.518 2641919 Body mass index 30+ - obesity 193672932 E66.9 90843712 Health Concerns Section Related Observation LastModified by Organization Detai ls LastModified Time None Recorded Concern Status LastModified by Organization Details LastModified Time None Recorded Payers Encounter Date Sequence Insurance Name Policy Number Policy Chapin Covered Member ID Chapin Member ID Guarantor Name 10/23/2024 1 [place]MEDICARE REPLACEMENT HMO) [id number] Colleen Araujo [id number] Colleen Araujo Notes Date Note Type Note Provider Name and Address Organization Details Recorded Time 10/23/2024 text/html Medicare Annual Wellness VisitReported by PatientSocial/Behavior al HistoryFor diet and nutrition, patient reportsdiet is high in fat, low in fiberandhigh carbohydrate meals. For physical activity, patient reportsdoes not exercise on a regular basisanddeconditioned due to sedentary lifestylebut reportsdiscussed weightbearing activities. For fracture risk, patient reportsno history of fractures,no recent explained fracture, andno sudden unexplained fractures.Mental Status:For depression risk, patient reportshistory of depressionbut reportsno loss of interest in activities,no significant changes in weight,no sleep disturbances or insomnia,no agitation,no loss of energy,no feelings of worthlessness or guilt,no thoughts of suicide, andno history of mood disorders. For orientation, patient reportsno disorientation to time,no disorientation to date, andno disorientation to place. For concentration and memory, patient reportsno decreased concentrating ability,no memory lapses or loss, anddoes not forget words. For speech/motor difficulties, patient reportsno speech difficulties,no difficulty expressing formulated concepts,no difficulty with fine manipulative tasks,no difficulty writing/copying,no slowed reaction time, anddoes not knock things over when trying to pick them up.Functional AbilityFor hearing, patient reportsno loss of hearing. For vision, patient reportsno vision problems. For activities of daily living, patient reportsable to bathe with limited or no assistance,able to contol urination and bowels,able to dress with limited or no assistance,able to feed self with limited or no assistance,able to get out of chair or bed with limited or no assistance,able to groom with limited or no assistance, andable to toilet with limited or no assistance. For instrumental activities of daily living, patient reportsable to do house work with limited or no assistance,able to grocery shop with limited or no assistance,able to manage medications with limited or no assistance,able to manage money with limited or no assistance,able to prepare meals with limited or no assistance, andable to use the phone with limited or no assistance. For falls risk assessment, patient reportsno frequent falls while walking,no fall in the past year,no fall since last visit, andno dizziness/vertigo. For home safety, patient reportsno unsafe polly hazzards,no unsafe stairs,no unsafe gas appliances,working smoke/co detectors,wears protective head gear for biking/high velocity,use of seatbelts,practicing 'safer sex',no vision or hearing loss while driving,no fire arms,has hand bars in the bathroom/shower, andgood lighting in the home.ROS as noted in the HPI Colleen Araujo, a patient with a history of chronic obstructive pulmonary disease, type 2 diabetes mellitus, and hypertension, presents with persistent cold-like symptoms since August and recent urinary frequency.Ms. Araujo reports experiencing intermittent cold symptoms for the past two months, describing them as off and on with fluctuating severity. Her symptoms include coughing with expectoration, runny nose, and what she perceives as allergy-related issues. She mentions throwing up gook when coughing but is unable to describe the color or consistency of the expectorated material. For her allergy symptoms, she has been taking Zyrtec, Singulair, and using Azelastine nasal spray.In addition to her respiratory complaints, Ms. Araujo notes a recent change in her urinary habits. For the past 2-3 nights, she has experienced increased urinary frequency, needing to urinate every 1-2 hours. She denies any pain or burning with urination, describing it as just frequent. The patient reports adherence to her current medication regimen, including her inhalers and NEB treatments. She denies any recent episodes of shingles and states her mood is good on her current medications. Regarding her diabetes management, Ms. Araujo reports no issues with swelling in her feet or ankles, and no sores on her feet. She has an upcoming diabetic eye exam scheduled for November 13. She denies any gastrointestinal issues, chest pain, or palpitations.Medical History- Chronic obstructive pulmonary disease (COPD)- Type 2 diabetes mellitus- Hypertension, currently well-controlled- History of shingles- Major depressive disorder, currently managed with medication- Seasonal allergiesReview of Systems- General: Cold symptoms since August- HEENT: Runny nose, cough with productive sputum, allergies- Respiratory: Cough with productive sputum- Genitourinary: Urinary frequency at night- Cardiovascular: Denies chest pain, palpitations Megan Montemayor APRN [address] [facility], [place], [address], [facility] [place] [employer] 10/23/2024 09:37:54 OBGyn Episode No OBEpisode recorded.
--- OUTSIDE RECORDS SUMMARY | 2024-11-16 08:55 | XMS_ITS ---
Author Organization Unknown TREATMENT PLAN Planned Care Start Date Provider Encounter for Check-up [id number] [facility]
--- OUTSIDE RECORDS SUMMARY | 2024-11-16 08:55 | XMS_ITS | Clinical Summary ---
Author Organization [facility] Address [facility] [place] [address] Phone Care Team Providers Care Cinnamon Grinder Name Role Phone Unavailable Primary Care Provider Unavailabl e Social History Tobacco Use Types Packs/Day Years Used Date Smoking Tobacco: Never Assessed Comments Unknown Sex and Gender Information Value Date Recorded Sex Assigned at Not on file Legal Sex Female 10:15 AM EST Gender Identity Not on file Sexual Orientation Not on file Plan of Treatment Health Maintenance Due Date Last Done Comments Wellness Exam Medicare 1953 Hepatitis C Screening 12/19/1967 DTaP/TDaP/Td (1 - Tdap) 1968 Cologuard 1994 Colon Cancer Screening 1994 Colonoscopy 1994 FIT 1994 Sigmoidoscopy 1994 Virtual Colonography 1994 Pneumococcal Vaccine 50+ (1 of 1 - PCV) 12/19/1999 Zoster (1 of 2) 12/19/1999 Bone Density Screening 2014 Breast Cancer Screening 01/22/2022 01/23/2020 COVID-19 Vaccine (1 - 2023-2 5 season) 2024 Influenza Vaccine (#1) 2024 Hepatitis B Vaccine Aged Out No longe r eligible based on patient's age to complete this topic Meningococcal B Vaccine Aged Out No l onger eligible based on patient's age to complete this topic Procedures Procedure Name Priority Date/Time Associated Diagnosis Comments MM MAMMO DIGITAL HECTOR SCREEN BILAT Routine 01/23/2020 11:55 AM EST Encounter for screening mammogram for malignant neoplasm of breast from Last 3 Months or Most Recently Relevant to Health Maintenance Results * MM MAMMO DIGITAL HECTOR SCREEN BILAT (01/23/2020 11:55 AM EST) Anatomical Region Laterality Modality Breast Bilateral Mammography 02/01/2020 2:04 PM EST Impressions 02/01/2020 2:04 PM EST Negative ([id number]-2) ~ RECOMMENDATION: Routine screening mammogram in 1 year. ~ DISCLAIMER * Any patient with a palpable abnormality, unexplained by breast imaging, should be managed on clinical basis by the attending physician. * Breast imaging has a false negative rate of 15%. * The patient was notified by mail of the results of this examination. *The patient's information was entered into a reminder system with a target due date for the next mammogram, in accordance with the [employer] and the Society of Breast Imaging recommendations. Narrative 02/01/2020 2:04 PM EST Procedure:MM MAMMO DIGITAL HECTOR SCREEN BILAT ~ Z12.31-Encounter for screening mammogram for malignant neoplasm of [id number] ~ MM MAMMO DIGITAL HECTOR SCREEN BILAT Bilateral CC and MLO view(s) were taken. There are scattered fibroglandular densities. Prior study comparison: Compared with prior studies the most recent being outside films from [facility] dated 12/31 06/14. No mammographic evidence of malignancy. ~ Procedure Note Claribel Chris MD - 02/01/2020 Procedure:MM MAMMO DIGITAL HECTOR SCREEN BILAT ~ Z12.31-Encounter for screening mammogram for malignant neoplasm of [id number]-[id number]-75-CM ~ MM MAMMO DIGITAL HECTOR SCREEN BILAT Bilateral CC and MLO view(s) were taken. There are scattered fibroglandular densities. Prior study comparison: Compared with prior studies the most recentbeing outside films from [facility] dated 12/31 06/14. No mammographic evidence of malignancy. ~ IMPRESSION: Negative ([id number]-8) ~ RECOMMENDATION: Routine screening mammogram in 1 year. ~ DISCLAIMER * Any patient with a palpable abnormality, unexplained by breast imaging, should be managed on clinical basis by the attending physician. * Breast imaging has a false negative rate of 15%. * The patient was notified by mail of the results of this examination. *The patient's information was entered into a reminder system with atarget due date for the next mammogram, in accordance with the [employer] and the Society of Breast Imaging recommendations. us Megan Montemayor APRN IMG MAMMOGRAPHY ORDERABLES Fin al Result from Last 3 Months or Most Recently Relevant to Health Maintenance Insurance MEDICARE [place] PART A AND B
--- OUTSIDE RECORDS SUMMARY | 2024-11-16 08:55 | XMS_ITS | Clinical Summary ---
Author Organization [facility] Address [address] [place] [address] Care Team Providers Care Ingot Stripper Name Role Phone Montemayor, Megan JAIR Primary Care Provider [phone] Allergies Active Allergy Reactions Criticality Noted Date Comments Codeine Swelling Medium 08/02/2019 Hydrocodone-Acetaminophen Swelling Medium 08/02/2019 Sulfa Antibiotics Swelling Medium 08/02/2019 Medications albuterol (ACCUNEB) 1.25 MG/3ML nebulizer solution Take 1 ampule by nebulization Every 6 (Six) Hours As Needed for Wheezing. Active atorvastatin (LIPITOR) 80 MG tablet Take 80 mg by mouth Every Night. Active calcium carbonate (OS-GANESH) 600 MG tablet Take 600 mg by mouth Daily. Active clopidogrel (PLAVIX) 75 MG tablet Take 75 mg by mouth Daily. Active ferrous sulfate 325 (65 FE) MG tablet Take 325 mg by mouth Daily With Breakfast. Active metFORMIN (GLUCOPHAGE) 500 MG tablet Take 500 mg by mouth. Active montelukast (SINGULAIR) 10 MG tablet Take 10 mg by mouth Every Night. Active nitroglycerin (NITROSTAT) 0.[address] 0.4 mg under the tongue Every 5 (Five) Minutes As Needed for Chest Pain. Take no more than 3 doses in 15 minutes. Active omeprazole (priLOSEC) 20 MG capsule Take 20 mg by mouth Daily. Active ondansetron (ZOFRAN) 4 MG tablet Take 4 mg by mouth Every 8 (Eight) Hours As Needed for Nausea or Vomiting. Active valACYclovir (VALTREX) 500 MG tablet Take 500 mg by mouth Daily. For shingles prophylaxis Active albuterol sulfate HFA 108 (90 Base) MCG/ACT inhaler Inhale 2 puffs Every 4 (Four) Hours As Needed for Wheezing. 18 g 03/06/2020 1:09 PM EST 1 Active sertraline (ZOLOFT) 50 MG tablet Take 50 mg by mouth Daily. 1 Active budesonide-form oterol (SYMBICORT) 160-4.5 MCG/ACT inhalerIndicati ons:Mucopurulen t chronic bronchitis Inhale 2 puffs 2 (Two) Times a Day. 10.2 g 5 1 Active Umeclidinium [place] (Incruse Ellipta) 62.5 MCG/INH aerosol powderIndicatio ns:Mucopurulent chronic bronchitis Inhale 1 puff Daily. 1 each 11 1 Active amLODIPine (NORVASC) 10 MG tablet Take 10 mg by mouth Daily. Active losartan (COZAAR) 50 MG tablet Take 50 mg by mouth Daily. 2 Active cetirizine (zyrTEC) 10 MG tablet Take 10 mg by mouth Daily. Active potassium chloride 10 MEQ CR tablet Take 10 mEq by mouth Daily. 2 Active metoprolol tartrate (LOPRESSOR) 25 MG tablet Take 2 tablets by mouth 2 (Two) Times a Day. Active meloxicam (MOBIC) 15 MG tablet Take 15 mg by mouth As Needed. Active isosorbide mononitrate (IMDUR) 30 MG 24 hr tablet Take 1 tablet by mouth Daily. Need f/u appt for further refills. Otherwise defer to PCP. 30 tablet 3 Active Active Problems Problem Noted Date Diagnosed Date Coronary artery disease invo lving [place] coronary artery of [place] heart without angina pectoris 06/05/2021 Mixed hyperlipidemia 06/05/2021 Dependence on nocturnal oxygen therapy 1 Obesity (BMI 30-39.9) 03/01/2020 Primary hypertension 08/04/2019 Tobacco abuse 08/04/2019 Hyponatremia 08/03/2019 Left-sided weakness 08/02/2019 COPD (chronic obstructive pulmonary disease) Diabetes Resolved Problems Problem Noted Date Diagnosed Date Resolved Date Tlviw-nx-sjgelja respiratory failure 03/01/2020 04/08/2020 Family History Medical History Relation Name Comments Cancer Brother Diabetes Brother Cancer Father Diabetes Mother Cancer Sister Diabetes Sister Relation Name Status Comments Brother Alive Father Maternal Grandfather Maternal Grandmother Mother Paternal Grandfather Paternal Grandmother Sister Alive Social History Tobacco Use Types Packs/Day Years Used Date Smoking Tobacco: Every Day Cigarettes 1 15 Smokeless Tobacco: Never Tobacco Cessation:Ready to Q uit: Not Asked; Counseling Given: Not Answered Alcohol Use Standard Drinks/Week Comments Never 0 [...] on file Sexual Orientation Not on file Last Filed Vital Signs Vital Sign Reading Time Taken Comments Blood Pressure 128/76 03/27/2022 10:30 AM EST Pulse 72 03/27/2022 10:30 AM EST Temperature 36.1 C (96.9 F) 04/08/2020 9:51 AM EST Respiratory Rate 16 04/08/2020 9:51 AM EST Oxygen Saturation 96% 03/27/2022 10:30 AM EST Inhaled Oxygen Concentration - - Weight 80.3 kg (177 lb) 03/27/2022 10:30 AM EST Height 156.2 cm (5' 1.5 ) 03/27/2022 10:30 AM ES T Body Mass Index 32.9 03/27/2022 10:30 AM EST Plan of Treatment Health Maintenance Due Date Last Done Comments DXA SCAN 1950 DIABETIC EYE EXAM 12/19/1959 DIABETIC FOOT EXAM 12/19/1959 URINE MICROALBUMIN-CREATININE RATIO (uACR) 12/19/1959 TDAP/TD VACCINES (1 - Tdap) 1968 COLOGUARD 1994 COLON CANCER SCREENING 5 YEA R SIGMOIDOSCOPY [address] COLONOGRAPHY 1994 FIT Testing (1 year) 1994 ANNUAL WELLNESS VISIT 03/07/2020 HEMOGLOBIN A1C 03/07/2020 08/03/2019 HEPATITIS C SCREENING 03/07/2020 ZOSTER VACCINE (2 of 2) 04/20/2020 02/24/2020 LIPID PANEL 08/02/2020 08/03/2019 Pneumococcal Vaccine 50+ (2 of 2 - PCV) 11/17/2020 1 COLORECTAL CANCER SCREENING 03/05/2021 FECAL OCCULT BLOOD TEST 03/05/2021 03/05/2020 MAMMOGRAM 01/22/2022 01/23/2020, 01/23/2020 INFLUENZA VACCINE 09/11/2024 COVID-19 Vaccine ( - season) 2024 Procedures Procedure Name Priority Date/Time Associated Diagnosis Comments OCCULT BLOOD X 1, STOOL Routine 03/05/2020 9:25 AM EST HEMOGLOBIN A1C Routine 08/03/2019 5:32 AM EDT LIPID PANEL Routine 08/03/2019 5:32 AM EDT from Last 3 Months or Most Recently Relevant to Health Maintenance Results * (ABNORMAL) Occult Blood X 1, Stool - Stool, Per Rectum (03/05/2020 9:25 AM EST) Fecal Occult Blood Positive( A) Negative DISK DIFFUSION 03/05/2020 10:41 AM EST [facility] Stool Specimen from rectum / Unknown Collection / Unknown 03/05/2020 9:25 AM EST 03/05/2020 9:25 AM EST Lauren Romero MD BODY FLUIDS AND STOOLS O RDERABLES Final Result Performing Organization Address City/[facility]/ZIP Co de Phone Number [facility]
[address] [place] [address], * (ABNORMAL) Hemoglobin A1c (08/03/2019 5:32 AM EDT) Hemoglobin A1C 6.30(H) 4.80 - 5.60 % 08/03/2019 6:48 AM EDT [facility] Blood Venipuncture / Unknown 08/03/2019 5:32 AM EDT 08/03/2019 6:18 AM EDT Narrative [facility] - 08/03/2019 6:48 AM EDT Hemoglobin A1C Ranges: Increased Risk for Diabetes 5.7% to 6.4% Diabetes >= 6.5% Diabetic Goal < 7.0% Padmini Jessica APRN LAB BLOOD ORDERABLES Final R esult [facility]
[address] [place] [address], * Lipid Panel (08/03/2019 5:32 AM EDT) Total Cholesterol 114 0 - 200 mg/dL 08/03/2019 7:04 AM EDT [facility] Triglycerides 75 0 - 150 mg/dL 08/03/2019 7:04 AM EDT [facility] HDL Cholesterol 43 40 - 60 mg/dL 08/03/2019 7:04 AM EDT [facility] LDL Cholesterol 56 0 - 100 mg/dL 08/03/2019 7:04 AM EDT [facility] VLDL Cholesterol 15 mg/dL 08/03/19 20 7:04 AM EDT [facility] LDL/HDL Ratio 1.30 08/03/2019 7:04 AM EDT [facility] Blood Venipuncture / Unknown 08/03/2019 5:32 AM EDT 08/03/2019 6:18 AM EDT Narrative [facility] - 08/03/2019 7:04 AM EDT Cholesterol Reference Ranges (U.S. Department of Health and Human Services ATP III Classifications) Desirable <200 mg/dL Borderline High 200-239 mg/dL High Risk >240 mg/dL Triglyceride Reference Ranges (U.S. Department of Health and Human Services ATP III Classifications) Normal <150 mg/dL Borderline High 150-199 mg/dL High 200-499 mg/dL Very High >500 mg/dL HDL Reference Ranges (U.S. Department of Health and Human Services ATP III Classifcations) Low <40 mg/dl (major risk factor for CHD) High >60 mg/dl ('negative' risk factor for CHD) LDL Reference Ranges (U.S. Department of Health and Human Services ATP III Classifcations) Optimal <100 mg/dL Near Optimal 100-129 mg/dL Borderline High 130-159 mg/dL High 160-189 mg/dL Very High >189 mg/dL Padmini Jessica APRN LAB BLOOD ORDERABLES Final R esult [facility]
[address] [place] [address], from Last 3 Months or Most Recently Relevant to Health Maintenance Insurance Advance Directives Documents on File Type Date Recorded Patient Leather Belt Loop Cutter Expl anation LIVING WILL - SCAN 08/04/2019 10:50 AM [employer] WILL, BH[facility], 08/04/2019 * CPR (Attempt to Resuscitate) (Latest Code Status on File) Date Activated Date Inactivated Comments 03/01/2020 1:23 AM 03/06/2020 3:41 PM Question Answer Comments Code Status (Patient has no pulse and is not breathing): CPR (Attempt to Resuscitate) Medical Interventions (Patie nt has pulse or is breathing): Full * CPR (Attempt to Resuscitate) Date Activated Date Inactivated Comments 08/02/2019 1:35 PM 08/04/2019 4:30 PM Question Answer Comments Code Status (Patient has no pulse and is not breathing): CPR (Attempt to Resuscitate) Medical Interventions (Patie nt has pulse or is breathing): Full * CPR (Attempt to Resuscitate) Date Activated Date Inactivated Comments 08/02/2019 10:49 AM 08/02/2019 1:35 PM Question Answer Comments Code Status (Patient has no pulse and is not breathing): CPR (Attempt to Resuscitate) Medical Interventions (Patie nt has pulse or is breathing): Full Level Of Support Discussed With: Patient Care Teams Ingot Stripper Relationship Specialty Start Date End Date Megan Montemayor APRN [address] [place] [address] PCP - General Nurse Practitioner 08/02/19
--- OUTSIDE RECORDS SUMMARY | 2024-11-16 08:55 | XMS_ITS | Data Portability ---
Author Organization [facility] Address [address] [place] [address] Assessment Encounter Date Assessment Date Assessment LastModified [...] management - Schedule low-dose chest CT at [place] - Obtain urinalysis to rule out UTI [...] and vaccinations. Plan: - Schedule mammogram at [place] - Schedule annual low-dose chest CT at [place] - Advise patient to receive flu vaccine [...] Details Appointments FOLLOW UP 30 2025 09:00A Darryl Montemayor APRN Not available Not available Not available Lab urinalysi s complete, reflex culture 2024 025 [facility] ([place]), [address] [place] [address], [id number], 10/27/2024 19:07:26 HbA1c (hemoglob in A1c), blood 2024 025 [facility], [address], 10/23/2024 08:33:40 CMP, serum or plasma 2024 025 [facility] ([place]), [address] [place] [address], [address], 10/27/2024 19:07:26 CBC w/ auto diff 2024 025 [facility] ([place]), [address] [place] [address], [id number], 10/27/2024 19:07:25 HbA1c (hemoglob in A1c), blood 2024 025 [facility] [address], [address], 06/22/2024 09:15:06 rapid flu (A+B) [address], [address], 04/10/2024 09:40:11 rapid SARS CoV 2 Ag, QL, IA, upper respirato ry specimen [address], [address], 04/10/2024 09:40:11 TSH, ultra-sen sitive, serum 2024 025 [facility] ([place]), [facility] [place], [address], 03/25/2024 03:06:24 HbA1c (hemoglob in A1c), blood [address], [address], 03/23/2024 11:37:04 CMP, serum or plasma 2024 025 [facility] ([place]), [address] [place] [address], [id number], 03/25/2024 03:06:21 albumin/c reatinine , mass ratio, urine 2024 025 [facility] [address] [place], [address], 03/25/2024 03:06:23 lipid panel, serum 2024 025 [facility] [address] [place], [address], 03/25/2024 03:06:22 CBC w/ auto diff 2024 025 LIZETTE [facility] ([place]), [address] [place], [address], 03/25/2024 03:06:21 iron + TIBC + ferritin, serum 2024 025 [facility]TE [facility] ([place]), [address] [place], [address], 03/25/2024 03:06:20 cobalamin and folate panel, serum 2024 025 [facility]TE [facility] ([place]), [address] [place], [address], 03/25/2024 03:06:23 HbA1c (hemoglob in A1c), blood 2023 [facility]24 [facility], [address] [place] [address], [address], 11/13/2023 09:23:[address] referral - DIABETIC EYE EXAM [address], [address] [facility], [place], [address], 06/25/2024 10:49:43 physical therapist referral 2024 025 [facility], [address] [facility], [place], [address], 04/17/2024 20:06:05 Procedures None recorded. Surgeries None recorded. Imaging MAMMO, screening , digital, bilateral - same day as LDCT please [address] Centralized Scheduling, [address] [place], [address], 11/06/2024 13:08:29 LDCT, chest, for lung cancer screening - Secondary dx: F17.210; same day as mammo please [address] Centralized Scheduling, [address] [place], [address], 11/06/2024 13:08:09 Medication Orders azithromy raghav 250 mg tablet 2024 025 [facility], [address] [place] [address], [address], 10/23/2024 15:15:52 prednison e 20 mg tablet 2024 025 [facility], [address] [place] [address], [address], 10/23/2024 15:15:53 lidocaine 5 % topical patch 2024 025 [facility], [address] [place] [address], [address], 10/20/2024 09:29:32 Zithromax Z-Srini 250 mg tablet 2024 025 [facility], [address] [place] [address], [address], 06/22/2024 09:25:05 isosorbid e mononitra te ER 30 mg tablet,ex tended release 24 hr 2024 025 [facility], [address] [place] [address], [address], 06/30/2024 11:23:05 amlodipin e 10 mg tablet 2024 025 [facility], [address] [place] [address], [address], 06/30/2024 11:23:01 metformin ER 500 mg tablet,ex tended release 24 hr 2024 025 [facility], [address] [place] [address], [address], 06/30/2024 11:23:04 Trelegy Ellipta 100 mcg-62.5 mcg-25 mcg powder for inhalatio n 02/10/ 2025 02/10/2 025 [facility], [address] [place] [address], [address], 04/03/2024 14:03:34 sertralin e 100 mg tablet 2023 024 [facility], [address] [place] [address], [address], 02/10/2024 14:39:58 Jardiance 10 mg tablet 2023 024 [facility], [address] [place] [address], [address], 02/11/2024 14:43:40 Patient TargetsNo targets recorded. Patient Instructions Encounter Date Encounter Id Patient Instructions Last Modified By Organization Details Last Modified Time 10/23/2024 [id number] Quitting Tobacco : Care Instructions Not available 10/23/2024 08:33:39 Discussed and explained advance directives such as standard forms to the patient and caregiver. Face to face discussion lasted for a duration of _5__ minutes. 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 Referral for Typ e 2 diabetes mellitus DIABETIC EYE EXAM Referring Physician: [facility], Encounter Date: 06/22/2024 Results Created Date Observation Date Name Description Value Unit Range Abnormal Flag Note LastModifiedBy Organization Detail LastModifiedTime 11/13/19 24 11/13/2023 HbA1c (hemo globi n A1c), blood HbA1c 6.6 Not Available [address], [address], 11/13/2023 09:05:54 03/23/19 25 03/24/2024 FE+TI BC+FE R iron 84 ug/dL 27-139 normal Not Available [facility] ([facility]) [address] [place], [address], 03/25/2024 03:06:20 03/23/19 25 03/24/2024 FE+TI BC+FE R ferritin 53 NG/mL 15-150 normal Not Available [facility] ([facility]) [address] [place], [address], 03/25/2024 03:06:20 03/23/19 25 03/25/2024 FE+TI BC+FE R iron bind.cap.(TI BC) 363 ug/dL 250-45 0 normal Not Available [facility] ([facility]) [address] [place], [address], 03/25/2024 03:06:20 03/23/19 25 03/25/2024 FE+TI BC+FE R UIBC 279 ug/dL 118-36 9 normal Not Available [facility] ([facility]) [address] [place], [address], 03/25/2024 03:06:20 03/23/19 25 03/25/2024 FE+TI BC+FE R iron saturation 23 % 15-55 normal Not Available [facility] ([facility]) [address] [place], [address], 03/25/2024 03:06:20 03/23/19 25 03/24/2024 CBC WITH DIFFE RENTI AL/PL ATELE T WBC 16.8 x10e3 /uL 3.4-10 .8 above high normal Not Available [facility] ([facility]) [address] [place], [address], 03/25/2024 03:06:21 03/23/19 25 03/24/2024 CBC WITH DIFFE RENTI AL/PL ATELE T RBC 4.23 x10e6 /uL 3.77-5 .28 normal Not Available [facility] ([facility]) [address] [place], [address], 03/25/2024 03:06:21 03/23/19 25 03/24/2024 CBC WITH DIFFE RENTI AL/PL ATELE T hemoglobin 12.3 g/dL 11.1-1 5.9 normal Not Available [facility] ([facility]) [address] [place], [address], 03/25/2024 03:06:21 03/23/19 25 03/24/2024 CBC WITH DIFFE RENTI AL/PL ATELE T hematocrit 38.5 % 34.0-4 6.6 normal Not Available [facility] ([facility]) [address] [place], [address], 03/25/2024 03:06:21 03/23/19 25 03/24/2024 CBC WITH DIFFE RENTI AL/PL ATELE T MCV 91 fL 79-97 normal Not Available [facility] ([facility]) [address] [place], [address], 03/25/2024 03:06:21 03/23/19 25 03/24/2024 CBC WITH DIFFE RENTI AL/PL ATELE T MCH 29.1 pg 26.6-3 3.0 normal Not Available [facility] ([facility]) [address] [place], [address], 03/25/2024 03:06:21 03/23/19 25 03/24/2024 CBC WITH DIFFE RENTI AL/PL ATELE T MCHC 31.9 g/dL 31.5-3 5.7 normal Not Available [facility] ([facility]) [address] [place], [address], 03/25/2024 03:06:21 03/23/19 25 03/24/2024 CBC WITH DIFFE RENTI AL/PL ATELE T RDW 12.1 % 11.7-1 5.4 Not Available [facility] ([facility]) [address] [place], [address], 03/25/2024 03:06:21 03/23/19 25 03/24/2024 CBC WITH DIFFE RENTI AL/PL ATELE T platelets 323 x10e3 /uL 150-45 0 normal Not Available [facility] ([facility]) [address] [facility], [place], [address], 03/25/2024 03:06:21 03/23/19 25 03/24/2024 CBC WITH DIFFE RENTI AL/PL ATELE T neutrophils 32 % not estab. normal Not Available [facility] ([facility]) [address] [facility], [place], [address], 03/25/2024 03:06:21 03/23/19 25 03/24/2024 CBC WITH DIFFE RENTI AL/PL ATELE T lymphs 59 % not estab. normal Not Available [facility] ([facility]) [address] [facility], [place], [address], 03/25/2024 03:06:21 03/23/19 25 03/24/2024 CBC WITH DIFFE RENTI AL/PL ATELE T monocytes 7 % not estab. normal Not Available [facility] ([facility]) [address] [facility], [place], [address], 03/25/2024 03:06:21 03/23/19 25 03/24/2024 CBC WITH DIFFE RENTI AL/PL ATELE T eos 1 % not estab. normal Not Available [facility] ([facility]) [address] [facility], [place], [address], 03/25/2024 03:06:21 03/23/19 25 03/24/2024 CBC WITH DIFFE RENTI AL/PL ATELE T basos 1 % not estab. normal Not Available [facility] ([facility]) [address] [place], [address], 03/25/2024 03:06:21 03/23/19 03/24/2024 CBC WITH DIFFE RENTI AL/PL ATELE T immature cells ELEVATOR ADJUSTER Not Available [facility] ([facility]) [address] [place], [address], 03/25/2024 03:06:21 03/23/19 25 03/24/2024 CBC WITH DIFFE RENTI AL/PL ATELE T neutrophils (absolute) 5.3 x10e3 /uL 1.4-7. 0 normal Not Available [facility] ([facility]) [address] [place], [address], 03/25/2024 03:06:21 03/23/1903/24/2024 CBC WITH DIFFE RENTI AL/PL ATELE T lymphs (absolute) 10.0 x10e3 /uL 0.7-3. 1 above high normal Not Available [facility] ([facility]) [address] [place], [address], 03/25/2024 03:06:21 03/23/19 25 03/24/2024 CBC WITH DIFFE RENTI AL/PL ATELE T monocytes(ab solute) 1.1 x10e3 /uL 0.1-0. 9 above high normal Not Available [facility] ([facility]) [address] [place], [address], 03/25/2024 03:06:21 03/23/19 25 03/24/2024 CBC WITH DIFFE RENTI AL/PL ATELE T eos (absolute) 0.2 x10e3 /uL 0.0-0. 4 normal Not Available [facility] ([facility]) [address] [place], [address], 03/25/2024 03:06:21 03/23/19 25 03/24/2024 CBC WITH DIFFE RENTI AL/PL ATELE T baso (absolute) 0.1 x10e3 /uL 0.0-0. 2 normal Not Available [facility] ([facility]) [address] [place], [address], 03/25/2024 03:06:21 03/23/19 25 03/24/2024 CBC WITH DIFFE RENTI AL/PL ATELE T immature granulocytes 0 % not estab. Not Available [facility] ([facility]) [address] [facility], [place], [address], 03/25/2024 03:06:21 03/23/19 25 03/24/2024 CBC WITH DIFFE RENTI AL/PL ATELE T immature grans (abs) 0.0 x10e3 /uL 0.0-0. 1 Not Available [facility] ([facility]) [address] [facility], [place], [address], 03/25/2024 03:06:21 03/23/19 25 03/24/2024 CBC WITH DIFFE RENTI AL/PL ATELE T NRBC ELEVATOR ADJUSTER Not Available [facility] ([facility]) [address] [facility], [place], [address], 03/25/2024 03:06:21 03/23/19 25 03/24/2024 CBC WITH DIFFE RENTI AL/PL ATELE T hematology comments: ELEVATOR ADJUSTER Not Available [facility] ([facility]) [address] [facility], [place], [address], 03/25/2024 03:06:21 03/23/19 25 03/24/2024 COMP. METAB OLIC PANEL (14) glucose 87 mg/dL 70-99 normal Not Available [facility] ([facility]) [address] [facility], [place], [address], 03/25/2024 03:06:21 03/23/19 25 03/24/2024 COMP. METAB OLIC PANEL (14) BUN 17 mg/dL 8-27 normal Not Available [facility] ([facility]) [address] [place], [address], 03/25/2024 03:06:21 03/23/19 25 03/24/2024 COMP. METAB OLIC PANEL (14) creatinine 0.96 mg/dL 0.57-1 .00 normal Not Available [facility] ([facility]) [address] [facility] [place], [address], 03/25/2024 03:06:21 03/23/19 25 03/24/2024 COMP. METAB OLIC PANEL (14) eGFR 62 mL/mi n/1.7 3 >59 normal Not Available [facility] ([facility]) [address] [facility] [place], [address], 03/25/2024 03:06:21 03/23/19 25 03/24/2024 COMP. METAB OLIC PANEL (14) BUN/creatini ne ratio 18 12-28 normal Not Available [facility] ([facility]) [address] [facility] [place], [address], 03/25/2024 03:06:21 03/23/19 25 03/24/2024 COMP. METAB OLIC PANEL (14) sodium 142 mmol/ L 134-14 4 normal Not Available [facility] ([facility]) [address] [facility] [place], [address], 03/25/2024 03:06:21 03/23/19 25 03/24/2024 COMP. METAB OLIC PANEL (14) potassium 5.2 mmol/ L 3.5-5. 2 normal Not Available [facility] ([facility]) [address] [facility] [place], [address], 03/25/2024 03:06:21 03/23/19 25 03/24/2024 COMP. METAB OLIC PANEL (14) chloride 106 mmol/ L 96-106 normal Not Available [facility] ([facility]) [address] [facility] [place], [address], 03/25/2024 03:06:21 03/23/19 25 03/24/2024 COMP. METAB OLIC PANEL (14) carbon dioxide, total 23 mmol/ L 20-29 normal Not Available [facility] ([facility]) [address] [place], [address], 03/25/2024 03:06:21 03/23/19 25 03/24/2024 COMP. METAB OLIC PANEL (14) calcium 8.8 mg/dL 8.7-10 .3 normal Not Available [facility] ([facility]) [address] [place], [address], 03/25/2024 03:06:21 03/23/19 25 03/24/2024 COMP. METAB OLIC PANEL (14) protein, total 6.3 g/dL 6.0-8. 5 normal Not Available [facility] ([facility]) [address] [place], [address], 03/25/2024 03:06:21 03/23/19 25 03/24/2024 COMP. METAB OLIC PANEL (14) albumin 4.2 g/dL 3.8-4. 8 normal Not Available [facility] ([facility]) [address] [place], [address], 03/25/2024 03:06:21 03/23/19 25 03/24/2024 COMP. METAB OLIC PANEL (14) globulin, total 2.1 g/dL 1.5-4. 5 Not Available [facility] ([facility]) [address] [facility] [place], [address], 03/25/2024 03:06:21 03/23/19 25 03/24/2024 COMP. METAB OLIC PANEL (14) bilirubin, total 0.2 mg/dL 0.0-1. 2 normal Not Available [facility] ([facility]) [address] [place], [address], 03/25/2024 03:06:21 03/23/19 25 03/24/2024 COMP. METAB OLIC PANEL (14) alkaline phosphatase 115 IU/L 44-121 normal Not Available [facility] ([facility]) [address] [place], [address], 03/25/2024 03:06:21 03/23/19 25 03/24/2024 COMP. METAB OLIC PANEL (14) AST (SGOT) 19 IU/L 0-40 normal Not Available [facility] ([facility]) [address] [place], [address], 03/25/2024 03:06:21 03/23/19 25 03/24/2024 COMP. METAB OLIC PANEL (14) ALT (SGPT) 23 IU/L 0-32 normal Not Available [facility] ([facility]) [address] [place], [address], 03/25/2024 03:06:21 03/23/19 25 03/24/2024 LIPID PANEL cholesterol, total 138 mg/dL 100-19 9 normal Not Available [facility] ([facility]) [address] [place], [address], 03/25/2024 03:06:22 03/23/19 25 03/24/2024 LIPID PANEL triglyceride s 90 mg/dL 0-149 normal Not Available [facility] ([facility]) [address] [place], [address], 03/25/2024 03:06:22 03/23/19 25 03/24/2024 LIPID PANEL HDL cholesterol 49 mg/dL >39 normal Not Available [facility] ([facility]) [address] [place], [address], 03/25/2024 03:06:22 03/23/19 25 03/24/2024 LIPID PANEL VLDL cholesterol jeff 17 mg/dL 5-40 Not Available [facility] ([facility]) [address] [place], [address], 03/25/2024 03:06:22 03/23/19 25 03/24/2024 LIPID PANEL LDL chol calc ([facility]) 72 mg/dL 0-99 Not Available [facility] ([facility]) [address] [place], [address], 03/25/2024 03:06:22 03/23/19 25 03/24/2024 LIPID PANEL LDL calc comment: ELEVATOR ADJUSTER Not Available [facility] ([facility]) [address] [facility], [place], [address], 03/25/2024 03:06:22 03/23/19 25 03/24/2024 ALBUM IN/CR EATIN INE RATIO ,URIN E creatinine, urine 141.4 mg/dL not estab. normal Not Available [facility] ([facility]) [address] [facility], [place], [address], 03/25/2024 03:06:23 03/23/19 25 03/24/2024 ALBUM IN/CR EATIN INE RATIO ,URIN E albumin, urine 55.0 ug/mL not estab. Not Available [facility] ([facility]) [address] [facility], [place], [address], 03/25/2024 03:06:23 03/23/19 25 03/24/2024 ALBUM IN/CR EATIN INE RATIO ,URIN E alb/creat ratio 39 mg/g_ creat 0-29 above high normal Lindsey l: 0 - 29 Moder ately incre ased: 30 - 300 Sever mitra incre ased: >300 Not Available [facility] ([facility]) [address] [facility], [place], [address], 03/25/2024 03:06:23 03/23/19 25 03/24/2024 VITAM IN B12 AND FOLAT E vitamin B12 619 pg/mL 232-12 45 normal Not Available [facility] ([facility]) [address] [place], [address], 03/25/2024 03:06:23 03/23/19 25 03/24/2024 VITAM IN B12 AND FOLAT E folate (folic acid), serum 11.9 NG/mL >3.0 normal A serum folat e lux ntrat ion of less than 3.1 ng/mL is consi dered to repre sent clini jeff defic iency . Not Available [facility] ([facility]) [address] [facility], [place], [address], 03/25/2024 03:06:23 03/23/19 25 03/24/2024 TSH RFX ON ABNOR MAL TO FREE T4 TSH 4.380 uIU/m L 0.450- 4.500 normal Not Available [facility] ([facility]) [address] [facility], [place], [address], 03/25/2024 03:06:24 03/23/19 25 03/23/2024 HbA1c (hemo globi n A1c), blood HbA1c 6.7 Not Available [address], [address], 03/23/2024 11:29:05 04/10/19 25 04/10/2024 rapid SARS CoV 2 Ag, QL, IA, upper respi rator y speci men SARS CoV Ag negati ve Not Available [address], [address], 04/10/2024 09:14:02 04/10/19 25 04/10/2024 rapid flu (A+B) Flu A negati ve Not Available [address], [address], 04/10/2024 09:13:55 04/10/19 25 04/10/2024 rapid flu (A+B) Flu B negati ve Not Available [address], [address], 04/10/2024 09:13:55 06/23/19 25 06/22/2024 HbA1c (hemo globi n A1c), blood HbA1c 6.2 Not Available [address], [address], 06/22/2024 08:18:16 10/24/19 25 10/23/2024 HbA1c (hemo globi n A1c), blood HbA1c 6.4 Not Available [address], [address], 10/23/2024 08:20:45 10/24/19 24 10/24/2023 MAMMO , scree viktor, bilat eral [facility] [address] [place] [address] Phone: Fax: Name: COLLEEN GRANDE Exam Date: 024 : 950 Age 72 years Gender : F Access ion: [id number] Physic stephanie: FRAN MONTEMAYOR Facili ty: [facility] Facili ty HSV: Outpat ient Exam: SCREEN MAMMO W CAD BILAT PROCED URE:MA MMO BREAST SCREEN ING BILATE RAL WITH CAD INDICA TION: SCREEN ING MAMMOG JERRICA Calcul ated lifeti me risk per the Erica model of 3.8% TECHNI QUE: Bilate ral 3-D with synthe sized 2-D CC and MLO views were obtain ed. COMPAR JASON: Prior breast imagin g exams dating to 2011 FINDIN GS: There are scatte red areas of fibrog landul ar densit y There are vascul ar and scatte red benign breast calcif icatio ns. There are stable breast densit ies. There are no new suspic ious masses , calcif icatio ns or areas of estiven ectura l distor tion IMPRES LAKESHA: There are no mammog raphic findin gs to sugges t malign grazyna BIRADS 2-Florian gn RECOMM ENDATI ON: Annual screen ing mammog jerrica Attent ion Physic stephanie: A letter has been sent to your patien t regard ing the result s of this exam Breast risk commen t: The [employer] recomm ends annual mammog raphic screen ing for women of averag e risk beginn ing at age 40. Higher risk women should start mammog raphic screen ing earlie r and may benefi t from supple mental screen ing. The Erica Model assess ment estima genaro a woman' s risk for develo ping breast cancer using medica l and reprod uctive histor y along with any histor y of breast cancer among first- degree relati ves. If lifeti me risk is assess ed at 20% or higher , the patien t may have an elevat ed risk for breast cancer and should reach out to their provid er to discus s supple mental screen ing and risk reduct ion option s. Discla alice: Risk assess ment scores are based on patien t respon ses and are depend ent on the accura cy of inform ation provid ed. Breast densit y commen t: Breast tissue can be either dense or not dense. Dense tissue makes it harder to find breast cancer on a mammog jerrica and also raises the risk of develo ping breast cancer . Your breast tissue is not dense. Talk to your health care provid er about breast densit y, risks for breast cancer and your indivi dual situat ion. A second readin g of the examin ation was perfor med using comput er-aid ed detect ion (CAD). Electr onical ly signed by: Chloe bosch MD 2023 02:34 PM EDT RP Workst ation: [id number] Legall y authen ticate d by CHIQUIS ANDREWS MD 10-23 14:23: 00 Dictat ed By: Chloe Santos Transc ribed By: Transc ribed On: 2:23 PM Electr onical ly signed by: Chloe Santos Thank you for referr COLLEEN Qureshi to [facility] Hospit [facility]. Legall y authen ticate d by CHIQUIS ANDREWS MD 10-23 14:23: 00 CC'ed Logic: Orderi ng Provid er: CARSON PETERS CC Provid er: CARSON PETERS Attend ing Provid er: CARSON PETERS Referr ing Provid er: CARSON PETERS Admitt ing Provid er: CARSON PETERS [id number] [facility] Centralized Scheduling [address] [place], [address], 02/25/2024 11:02:57 10/24/19 24 10/24/2023 MAMMO , joe hoang, bilat eral No observ ation record ed. [facility] (Radiology) [address] [place], [address], 10/29/2023 11:31:12 10/24/19 24 10/24/2023 LDCT, chest , for lung cance r joe hoang [facility] [address] [facility] [place] [address] Phone: Fax: Name: COLLEEN GRANDE Exam Date: 024 : [birth year] Age 72 years Gender : F Access ion: [id number] Physic stephanie: FRAN MONTEMAYOR Facili ty: [facility] Facili ty HSV: Outpat ient Exam: CT CHEST LOW DOSE EXAMIN ATION: CT CHEST WITHOU T CONTRA ST SCREEN ING FOR LUNG CANCER WITH LOW DOSE COMPUT ED TOMOGR APHY (LDCT) CLINIC AL INDICA TION: Female , 72 years old. / Packs per year: 365 Years Smoked : 59 Curren t Smoker : No Year Quit Smokin g 2022 : TECHNI QUE: Low dose CT scan of the chest withou t intrav enous contra st. One or more of the follow ing dose reduct ion techni ques were used: Automa dhara exposu re contro l, adjust ment of the mA and/or kV accord ing to patien t size, and/or iterat davida recons tructi on. Unless otherw ise specif ied, incide ntal findin gs do not requir e dedica dhara imagin g follow -up. [id number] . COMPAR JASON: Chest CT dated 023 FINDIN GS: LOWER NECK: Visual ized thyroi d gland and soft tissue s are normal . LUNGS AND AIRWAY S: A backgr ound of mild centri lobula r emphys marzena/CO PD remain s grossl y stable . There has been interv al develo pment of multip le foci of reacti ve subple ural ground glass opacit y throug hout the right lung, in the midlow er lung esparza , princi pally involv ing the right middle and right lower lobes. Simila r but milder new change s are also observ ed in the depend ent left lower lobe. The appear ance favors infect ious/i nflamm atory sequel a such as atypic al pneumo elvie. Early Covid infect ion is a possib ility and should be correl ated clinic ally. There is a stable tiny 2 mm solid nodule of the left lower lobe on axial image 129, consid ered radiol ogical ly benign as greate r than 12 month stabil ity has been confir med. There is also a stable tiny granul adilson in the left upper lobe on axial image 106 and a stable tiny 4 mm granul adilson in the left lower lobe on axial image 149. PLEURA : No pleura l effusi on. No pneumo thorax . Hemidi aphrag ms are normal ly positi oned. MEDIAS TINUM AND LYMPH NODES: No medias tinal mass or fluid collec tion. Normal size medias tinal, hilar, and axilla ry lymph nodes. THORAC IC AORTA: Normal calibe r and config uratio n. PULMON MARIE ARTERI ES: Normal calibe r. HEART: Normal heart size. No perica rdial effusi on. Stable severe montana ry calcif icatio n is noted. OSSEOU S STRUCT URES AND CHEST WALL: No suspec t lesion or fractu re identi fied curren tly. There are small but increa sing axilla ry lymph nodes bilate rally. These do not curren tly meet size criter ia for adenop athy with the larges t axilla ry node curren tly measur ing only 8 mm short axis. Breast tissue is unrema rkable . UPPER ABDOME N: A stable large slidin g hiatal hernia is presen t involv ing approx imatel y 50% of the stomac h. A cyst in the upper right kidney is again only partia lly imaged . IMPRES LAKESHA: Legall y authen ticate d by LISSY MCCLENDON MD 10-23 14:10: 08 1. No discre te pulmon marie nodule s are identi fied curren tly. 2. There are scatte red new areas of reacti ve subple ural ground glass infilt rate identi fied, right greate r than left area these likely relate to atypic al pneumo elvie. COVID pneumo elvie is possib le and should be correl ated clinic ally and with approp ashley herr. 3. Mild COPD. 4. Stable large hiatal hernia , severe montana ry calcif icatio n. 5. Small but increa sing axilla ry nodes bilate rally. These are nonspe cific. LUNG RADS CLASSI FICATI ON: 2 (jericho subramanian gs) FOLLOW -UP RECOMM ENDATI ON: In view of the increa sing axilla ry nodes, repeat noncon trast chest CT is recomm ended in 6 months in reeval uation . Electr onical ly signed by: Leo barber MD 2023 02:40 PM EDT RP Workst ation: SEALWR [id number] Dictat ed By: Leo Lockhart Transc ribed By: Transc ribed On: 2:10 PM Electr onical ly signed by: Leo Lockhart Thank you for referr ing [facility]LEEN GRANDE to [facility]. Legall y authen ticate d by LISSY MCCLENDON MD 10-23 14:10: 08 CC'ed Logic: Orderi ng Provid er: CARSON PETERS CC Provid er: CARSON PETERS Attend ing Provid er: CARSON PETERS Referr ing Provid er: CARSON PETERS Admitt ing Provid er: CARSON PETERS [facility] (Radiology) [address] [place], [address], 10/25/2023 16:31:38 10/24/19 24 10/24/2023 LDCT, chest , for lung cance r scree viktor No observ ation record ed. [facility] Centralized Scheduling [address] [place], [address], 10/29/2023 11:31:12 Result Notes None recorded. Problems Name Problem SNOMED Code Status Onset Date Resolution Date Notes Provider Name and Address Organization Details Recorded Time Tobacco dependen ce caused by cigarett es 82089051099 079851 Active 2019 Problem Code: F17.210; Problem Code Type: ICD-10; Fran Montemayor APRN [address] [place] [address], [address] , [employer] 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 2 15:54:08 Body mass index 30+ - obesity 607849823 Completed 201911/29/2020 JKC43Ifz es: 'Z68.3'; Fran Montemayor APRN [address] [place], [address] , [employer] 5 09:36:22 Nausea and vomiting 53223392 Completed 201904/18/2022 Problem Code: R11.2; Problem Code Type: ICD-10; MAXINE magaña, [employer] 3 09:26:06 Diarrhea 62770489 Completed 201904/18/2022 Problem Code: R19.7; Problem Code Type: ICD-10; MAXINE ARREDONDOLUIS FELIPE magaña, [employer] 3 09:26:06 Elevated blood-pr essure reading without diagnosi s of hyperten lakesha 744638570 Completed 201908/30/2019 Not Available [facility] 2 22:17:12 Hyperten sive disorder 18142897 Active 2019 Problem Code: I10; Problem Code Type: ICD-10; Not Available [facility] 3 09:26:15 Transien t cerebral ischemia 559297573 Active 2019 Not Available [facility] 3 09:26:15 Disorder of upper respirat ory system 034442781 Completed 201912/15/2019 Problem Code: J06.9; Problem Code Type: ICD-10; Fran Montemayor APRN [address] [place], [address] , [employer] 2 15:54:05 Herpes zoster 6057961 Completed 201903/11/2020 Problem Code: B02.9; Problem Code Type: ICD-10; Not Available [facility] 2 22:17:10 Influenz a vaccine needed 87064550171 06 Completed 201907/22/2020 Problem Code: Z23; Problem Code Type: ICD-10; Fran Montemayor APRN [address] [place] [address], [address] , [employer] 2 15:54:17 Herpes zoster 1817739 Completed 201903/11/2020 Problem Code: B02.9; Problem Code Type: ICD-10; Not Available [facility] 2 22:17:10 Screenin g mammogra phy Completed 201903/11/2020 Problem Code: Z12.31; Problem Code Type: ICD-10; Fran Montemayor APRN [address] [place], [address] , [employer] 2 15:54:21 Gastroes ophageal reflux disease without esophagi tis 032371586 Active 2020 Not Available [facility] 3 09:26:15 Acute exacerba tion of chronic obstruct davida pulmonar y disease 716757490 Completed 202003/11/2020 Problem Code: J44.1; Problem Code Type: ICD-10; Fran Montemayor APRN [address] [place] [address], [address] , [employer] 4 08:30:26 Acute-on -chronic respirat ory failure 28860781 Completed 202011/29/2020 Problem Code: J96.21; Problem Code Type: ICD-10; Not Available [facility] 2 22:17:11 Iron deficien cy anemia 05636103 Active 2020 Problem Code: D50.9; Problem Code Type: ICD-10; Not Available [facility] 3 09:26:15 Herpes zoster 3954342 Active 2020 Problem Code: B02.9; Problem Code Type: ICD-10; Not Available [facility] 3 09:26:15 Influenz a vaccine needed 54474089289 06 Completed 202012/30/2020 Problem Code: Z23; Problem Code Type: ICD-10; Fran Montemayor APRN [address] [place] [address], [address] , [employer] 2 15:54:17 Body mass index 30+ - obesity 237777397 Active 2020 Problem Code: Z68.34; Problem Code Type: ICD-10; JA[place], [address] , [employer] 5 09:36:22 Moderate recurren t major depressi on 49174916 Active 2023 Fran Montemayor APRN [address] [place], [address] , [employer] 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 5 09:13:27 Problem Notes None recorded. Procedures Surgical History Date Name Laterality Status Provider Name and Address Organization Details Recorded Time 4 Most Recent Mammogram completed MAXINE MARIA ELENALUIS FELIPE [employer] 11/13/2023 09:05:32 section completed [employer] 08/29/2022 11:48:21 Carpal Tunnel Surgery completed [employer] 08/29/2022 11:48:37 Imaging Results None recorded. Procedure Notes None recorded. Medical Equipment None Reported. Allergies Allergen ID Allergen Name Allergen Category Reaction Reaction Severity Criticality Documentation Date Start Date Code Code System Note Provider Name and Address Organization Details Recorded Time 08429 Substance with morphinan structure and opioid receptor agonist mechanism of action (substanc e) medicatio n Not available Not available Not available 10/17/2021 29064 9000 SNOMED Catherine Obed magaña [employer] 3 13:59:54 01949 sulfameth azine medicatio n Not available Not available Not available 10/17/2021 79070 RxNorm Not Available [facility] 2 22:56:51 93298 acetamino phen / hydrocodo ne medicatio n Not available Not available Not available 10/17/2021 52330 2 RxNorm Not Available [facility] 2 22:56:51 73234 codeine medicatio n Not available Not available Not available 10/17/2021 2670 RxNorm Not Available [facility] 2 22:56:51 67277 acetamino phen / oxycodone medicatio n Not available Not available Not available 10/17/2021 35392 3 RxNorm Not Available [facility] 2 22:56:51 Medications Name Sig Start Date [...] Available Not Available No t Available OneTouch Ultra Test strips use to test twice [...] (25 mg) by oral route twice daily 12/29 completed Not Available Not Available Not Available [...] propionate 50 mcg/actuati on nasal spray,suspe nsion [place] 1 spray every day by intranasa l [...] height Body mass index (BMI) Body weight Heart rate Oxygen saturation Oxygen saturation in Arterial blood by Pulse oximetry Systolic And Diastolic Provider Name and Address Organization Details Last Updated DateTime 5 154.94 cm 35.6 kg/m2 02070.1 7 g 79 /min 94 % 94 % 115/71 mm[Hg] [facility] 5 11:28:12 Date Recorded Body height Body mass index (BMI) Body weight Body temperature Heart rate Oxygen saturation Oxygen saturation in Arterial blood by Pulse oximetry Systolic And Diastolic Provider Name and Address Organization Details Last Updated DateTime 5 154.94 cm 35.3 kg/m2 50327.7 7 g 98.8 [degF] 64 /min 90 % 90 % 120/69 mm[Hg] Karli Jade [employer] 5 09:20:35 Date Recorded Body height Body mass index (BMI) Body weight Body temperature Heart rate Oxygen saturation Oxygen saturation in Arterial blood by Pulse oximetry Systolic And Diastolic Provider Name and Address Organization Details Last Updated DateTime 5 154.94 cm 35.4 kg/m2 38024.2 1 g 98 [degF] 65 /min 92 % 92 % 110/61 mm[Hg] MAXINE [employer] 5 09:11:01 Date Recorded Body height Body mass index (BMI) Body weight Body temperature Heart rate Oxygen saturation Oxygen saturation in Arterial blood by Pulse oximetry Systolic And Diastolic Systolic And Diastolic Provider Name and Address Organization Details Last Updated DateTime 5 154.94 cm 35.1 kg/m2 40802.1 8 g 98.8 [degF] 69 /min 91 % 91 % 125/45 mm[Hg] 117/52 mm[Hg] MAXINE [employer] 5 08:20:01 Date Recorded Body height Body mass index (BMI) Body weight Body temperature Heart rate Oxygen saturation Oxygen saturation in Arterial blood by Pulse oximetry Systolic And Diastolic Provider Name and Address Organization Details Last Updated DateTime 4 154.94 cm 34.8 kg/m2 00298 g 98 [degF] 69 /min 92 % 92 % 132/67 mm[Hg] MAXINE [employer] 4 09:04:26 Social History Question Answer Notes LastModified by Organizat ion Details LastModified Time Tobacco Smoking Status Former Smoker Fran Montemayor, JAIR [address] [place], [address], [employer] 05/08/2023 10:40:42 Do You Have An Advance Directive? No Information not available 11/06/2021 Is Your Home Air Conditioned? Yes Information not available 11/06/2021 Are You Blind Or Do You Have Difficulty Seeing? No Information not available 11/06/2021 What Is Your Level Of Caffeine Consumption? Occasional [email or web address] Information not available 08/29/2022 Are You A [...] When Did You Quit Smoking? 1-5yearssincel kirsty Information not available 05/08/2023 Are There Any Guns Present In Your Home? No Information not available 11/06/2021 Do You Have A Medical Power Of Application Development Team Lead? No Information not available 11/06/2021 What Was The Date Of Your Most Recent Tobacco Screening? 10/23/2024 Information not available 10/23/2024 What Is Your Current Pack Years? 30ormorepackye ars [email or web address] Information not available 08/29/2022 Do You Have [...] Functional Status Question Answer Note LastModified by [employer] ion Details LastModified Time Do you use [...] Paternal Aunt Family history of breast cancer [email or web address] Not available 11:46:38 Mother Family history of Hypertension [email or web address] Not available 08/29/2022 11:46:48 Mother Family history of hyperlipidem ia [email or web address] Not available 11:46:59 Mother Family history of diabetes mellitus type 2 [email or web address] Not available 11:47:02 Sister Family history of breast cancer [email or web address] Not available 11:46:41 Brother Family history of Hypertension Not available 08/29/2022 11:46:54 Father Family history of malignant neoplasm of lung [email or web address] Not available 11:47:24 Medical History Condition Response Diabetes Y Coronary Artery Disease Y Hospitalizations N Acid Reflux (GERD) Y Emergency room visit since last appointm ent. N COPD Y Depression Y Anemia Y High Cholesterol Y Headaches Y Hypertension Y Gynecological History Statement/Question Response Date of Last Pap Smear Most Recent Mammogram 10/24/2023 Obstetrics History GPAL:G 0 P 0 0 0 0 Immunizations Vaccine Type Date Status Note Provider Nam e and Address Organization Details Recorded Time Influenza, high-dose, quadrivalent, PF 3 completed Fran Montemayor APRN [address] [place], [address], [facility] [employer] 11/09/2022 10:49:32 Influenza, split virus, quadrivalent, PF 1 completed Not Available [facility] 09/17/2022 09:26:16 pneumococcal polysaccharide PPV23 0 completed Not Available [facility] 09/17/2022 09:26:16 Influenza, split virus, quadrivalent, preservative 0 completed Not Available [facility] 09/17/2022 09:26:15 zoster recombinant 1 completed Not Available [facility] 09/17/2022 09:26:15 RSV, recombinant, protein subunit RSVpreF, adjuvant reconstituted, 0.5 mL, PF 4 completed Fran Montemayor APRN [address] [place], [address], [facility] [employer] 05/08/2023 10:57:46 Influenza, high-dose, trivalent, PF 4 completed Fran Montemayor APRN [address] [place] [address], [address], [facility] [employer] 11/17/2023 21:24:14 COVID-19, mRNA, LNP-S, PF, 100 mcg/0.5mL dose or 50 mcg/0.25mL dose 1 completed Not Available [facility] 09/17/2022 09:26:16 COVID-19, mRNA, LNP-S, PF, 100 mcg/0.5mL dose or 50 mcg/0.25mL dose 1 completed Not Available [facility] 09/17/2022 09:26:16 Influenza, split virus, quadrivalent, PF 2 completed Farn Montemaoyr APRN [address] [place] [address], [address], [facility] [employer] 11/07/2021 09:05:09 Past Encounters Encounter ID Performer Location Encounter Start Date Encounter Closed Date Diagnosis/Indication Diagnosis SNOMED-CT Code Diagnosis ICD10 Code Diagnosis IMO Codes Diagnosis Note [id number] Fran Montemayor [place] [address] 0 10/25/2021 15:31:07 10/25/2021 16:50:04 Acute exacerbation of chronic obstructive pulmonary disease 583706276 J44.1 continue nebs QID, mucinex BID, push fluids, cool mist vaporizer [id number] Fran Montemayor [place] [address] 0 11/06/2021 13:14:19 11/06/2021 14:38:18 Chronic obstructive pulmonary disease 24550205 J44.9 Type 2 erick betes mellitus 31097527 E11.9 Essential hypertension 32111105 I10 Administra tion of influenza vaccine 38523634 Z23 [id number] Fran Montemayor [place] [address] 0 12/29/2021 10:31:00 12/29/2021 11:16:18 Acute upper respiratory infection 54475324 J06.9 Acute exac erbation of chronic obstructive pulmonary disease 909274710 J44.1 continue nebs QID, home oxygen prn, mucinex BID, push fluids, cool mist vaporizer, stop smoking [id number] Fran Montemayor [place] [id number] 02/14/2022 11:22:22 02/14/2022 12:31:51 Type 2 diabetes mellitus without complication 944769435 E11.9 Dm diet, smoking cessation encouraged . Inconclusi ve mammography finding 6064367277 72700 R92.2 Due for f/up mammo [id number] Fran Montemayor [place] [id number] 03/06/2022 10:12:54 03/06/2022 11:44:40 Acute upper respiratory infection 78577001 J06.9 Patient presented with symptoms of upper respirator y infection. Advised to drink plenty of fluids, run a cool-mist humidifier in room at night, gargle salt water for sore throat, and get plenty of rest. Patient should avoid over-exert ion and reduce exposure to irritants such as smoke, cold, dry air, and dust. Treatment currently involves symptomati c relief. Patient may take acetaminop hen or ibuprofen as directed to reduce fever and body aches. Antihistam ine and decongesta nt usage was discussed and recommenda tions made. Patient understood these instructio ns and will follow up in the office in 10 days to 2 weeks if symptoms not improving. 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 I have again instructed her on smoking cessation, medication compliance , elevation of legs, and use of DHARA hose. She has DHARA hose at home but has not been using them. [id number] [place] [id number] 05/15/2022 09:37:51 05/15/2022 10:34:29 Type 2 diabetes mellitus without complication 651820636 E11.9 Dm diet, smoking cessation encouraged . Chronic ob structive pulmonary disease 87268882 J44.9 Change to Breztri for triple for triple therapy. Failed symbicort and incruse. Atheroscle rosis of coronary artery without angina pectoris 0435024844 52800 I25.10 Hypertensive disorder 38 881661 I10 Adult heal th examination 562586188 Z00.00 Smoker 95837469 F17.200 Moderate r ecurrent major depression 34261828 F33.1 [id number] Fran Montemayor[address] [address] 05/30/2022 11:10:29 05/30/2022 11:50:58 Middle ear effusion 8131394797 H74.8X9 Patient presents with signs/symp toms of otitis media. Will treat as below. Supportive care reviewed: humidifier use, raise HOB, saline nasal spray, encourage PO fluids. Recommende d acetaminop hen/ibupro fen PRN pain Follow up as below. Nausea 962620448 R11.0 [id number] Fran Montemayor[address] [address] 07/11/2022 13:57:48 07/11/2022 15:19:22 Syncope 161452919 R55 Push fluids, avoid heat exposure. Gastroesop hageal reflux disease without esophagitis 195664401 K21.9 Stop omeprazole , start Nexium daily. Lifestyle and dietary modificati ons for acid reflux disease were again emphasized and discussed with her. Low back pain 365622244 M54.50 Home stretching regimen, alternatin g of ice and heat and use of topical diclofenac were instructed and we will begin physical therapy. Essential hypertension 19003811 I10 She needs refills on all of her regular medication s today Mixed hyperlipidemia 267 937497 E78.2 Major depr essive disorder 789078017 F32.9 Nausea 961598899 R11.0 [id number] Fran Montemayor [place] [address] 0 07/25/2022 08:39:14 07/25/2022 09:31:46 Cough 12695259 R05.9 Acute exac erbation of chronic obstructive pulmonary disease 003365200 J44.1 continue nebs QID, home oxygen prn, mucinex BID, push fluids, cool mist vaporizer, stop smoking [id number] Fran Montemayor [place] [address] 0 08/08/2022 08:37:30 08/08/2022 09:27:39 Type 2 diabetes mellitus without complication 224542749 E11.9 Dm diet, smoking cessation encouraged . No med changes today. [id number] ELSA GONZALES, [place] [address] 08/29/2022 11:28:16 08/29/2022 13:47:23 Folliculitis 01214500 L73.9 Herpes zoster 1476905 B0 2.9 [id number] [place] [id number] 09/24/2022 14:14:22 09/24/2022 15:37:38 Acute exacerbation of chronic obstructive pulmonary disease 342206493 J44.1 continue nebs QID, home oxygen prn, mucinex BID, push fluids, cool mist vaporizer, stop smoking Diarrhea 04904910 R19.7 change metformin to extended release Chronic ob structive pulmonary disease 81942207 J44.9 Change to Breztri for triple for triple therapy. Failed symbicort and incruse. Smoker 60586464 F17.200 Diabetes mellitus 618212 09 E11.9 [id number] Fran Montemayor [place] [address] 0 10/24/2022 14:56:02 10/24/2022 17:21:46 Pain of right shoulder joint 4521029518 2853727 M25.511 RICE, xray, start PT, depomedrol IM. Fall on sa me level from tripping 369944392 W01.0XXA Smoker 97944035 F17.200 Decrease nicoderm patch to the 14mcg dose [id number] [place] [address] 11/09/2022 08:14:22 11/09/2022 09:09:07 Type 2 diabetes mellitus without complication 512871365 E11.9 Dm diet, smoking cessation encouraged . No med changes today. Administra tion of influenza vaccine 06602588 Z23 [id number] [place]and [place] [address] 12/04/2022 12:54:13 12/04/2022 13:36:24 Acute urinary tract infection 533202337 N39.0 [id number] [place]and [place] [address] 02/06/2023 07:54:52 02/06/2023 09:25:15 Type 2 diabetes mellitus without complication 714761599 E11.9 Dm diet, and increased activity encouraged . Chronic ob structive pulmonary disease 50798110 J44.9 Continue Breztri Hypertensive disorder 38 883370 I10 Iron defic iency anemia 21321899 D50.9 Moderate r ecurrent major depression 74993175 F33.1 Increase Zoloft to 100 mg nightly. Continue wellbutrin . Body mass index 30+ - obesity 004233551 Z68.34 History of cerebrovascular accident 392074322 Z86.73 Nausea 785347333 R11.0 [id number] [place] [address] 05/08/2023 08:11:09 05/08/2023 10:05:25 Type 2 diabetes mellitus without complication 814216477 E11.9 Dm diet, and increased activity encouraged . Gastroesop hageal reflux disease without esophagitis 013614065 K21.9 Change PPI to Protonix daily. GERD dietary and lifestyle modificati on education explained Active or passive immunization 157383665 Z23 Chronic ob structive pulmonary disease 82916272 J44.9 Continue Breztri, nebs, and oxygen at night and prn during the day. She does continue to abstain from smoking. Body mass index 30+ - obesity 388369524 Z68.34 [id number] [place] [address] 08/06/2023 08:15:32 08/06/2023 08:45:17 Type 2 diabetes mellitus without complication 766498779 E11.9 Dm diet, and increased activity encouraged . Hypertensive disorder 38 479950 I10 Screening mammography of bilateral breasts 6368083724 40024 Z12.31 Screening for malignant neoplasm of respiratory tract 218608262 Z12.2 Chronic ob structive pulmonary disease 41724344 J44.9 Continue Breztri, nebs, and oxygen at night and prn during the day. She does continue to abstain from smoking. Body mass index 30+ - obesity 654482694 Z68.34 [id number] [place] [id number] 11/13/2023 08:46:52 11/13/2023 09:39:06 Type 2 diabetes mellitus without complication 905221168 E11.9 Add jardiance 10 mg daily as she also has CAD. Dm diet, and increased activity encouraged . Administra tion of influenza vaccine 40809490 Z23 Moderate r ecurrent major depression 56908063 F33.1 Mood well controlled on wellbutrin and zoloft. Body mass index 30+ - obesity 670909454 Z68.34 [id number] [place] [id number] 03/23/2024 11:19:36 03/23/2024 13:13:51 Adult health examination 399434703 Z00.00 Patient presented to office today for their [...] reduce health risks and promote healthy living. Type 2 erick betes mellitus without complication 217100339 E11.9 Dm diet, and increased activity encouraged . Iron defic iency anemia 21299734 D50.9 Recheck CBC today. Moderate r ecurrent major depression 28837028 F33.1 Mood well controlled on wellbutrin and zoloft. Chronic ob structive pulmonary disease 10961752 J44.9 Breztri too expensive, change to Trelegy, nebs, and oxygen at night and prn during the day. She does continue to abstain from smoking. Essential hypertension 31601947 I10 She needs refills on all of her regular medication s today Low back pain 849279734 M54.50 Home stretching regimen, alternatin g of ice and heat and use of topical diclofenac were instructed and we will begin physical therapy. Body mass index 30+ - obesity 189721698 Z68.34 [id number] Fran Montemayor [address] [address] 04/10/2024 09:11:17 04/10/2024 09:56:43 Acute exacerbation of chronic obstructive pulmonary disease 571953593 J44.1 continue nebs QID, home oxygen prn, mucinex BID, push fluids, cool mist vaporizer, stop smoking Acute pharyngitis [id number] 003 J02.9 Discussed potential complicati ons and interventi on options with the patient during this visit. Patient was instructed to increase room humidity and eat soft bland foods. Patient was instructed to gargle frequently with warm salt water. Raising the head of the bed, lozenges, and saline nasal spray were also recommende d. Patient may take ibuprofen or acetaminop hen as needed for pain control. If the issue does not improve in 24-48 hours, patient should return to the clinic for follow-up. [id number] Fran Montemayor [address] [address] 06/22/2024 08:56:36 06/22/2024 09:30:30 Type 2 diabetes mellitus [id number] E11.9 [id number] No med changes today. Obtain DM eye exam. Herpes zoster [id number] B0 2.9 Continue valtrex and start lido patches for herpetic neuralgia. [id number] Fran Montemayor APRN [address] [address] 10/23/2024 08:03:13 10/23/2024 12:09:18 Type 2 diabetes mellitus without complication [id number] E11.9 Dm diet, and increased activity encouraged . Chronic ob structive pulmonary disease 73198947 J44.9 Tx with Zpak and steroids, continue pulmonary toilet Iron defic iency anemia 56689656 D50.9 Recheck CBC today. Hypertensive disorder 38 606741 I10 BP well controlled today Moderate r ecurrent major depression 49959473 F33.1 Mood well controlled on wellbutrin and zoloft. Screening for malignant neoplasm of respiratory tract 581958898 Z12.2 Screening mammography 24 765743 Z12.31 [id number] History an d physical examination, annual for health maintenance 54533527 Z00.00 [id number] Patient presented to office today for their [...] promote healthy living. Increased frequency of urination 242976165 R35.0 708977 Tobacco de pendence caused by cigarettes [id number] 7874973 F17.461 0712337 Body mass index 30+ - obesity 162228845 E66.9 [id number] Health Concerns Section Related Observation LastModified by Organization Detai ls LastModified Time None Recorded Concern Status LastModified by Organization Details LastModified Time None Recorded Advance Directives Directive N: Payers Insurance Date Sequence Insurance Name Policy Number Policy Chapin Covered Member ID Chapin Member ID Guarantor Name 09/25/2022 SLIDING FEE SCHEDULE - DISCOUNT Colleen Grande 10/21/2024 [place] NIKIA [place] - [facility] Colleen Grande [id number] Colleen Grande 05/06/2023 1 [employer] (MEDICARE REPLACEMENT/AD VANTAGE - HMO) [id number] Colleen Grande [id number] Colleen Grande 08/09/2023 2 [facility] CHO[facility] - FFS/TRADITIONA L Colleen Grande [id number] Colleen Grande 10/20/2024 1 [place]: DEAN [facility] MEDIBLUE PLUS (MEDICARE REPLACEMENT HMO) [id number] Colleen Grande [id number] Colleen Grande Notes Date Note Type Note Provider Name and Address Organization Details Recorded Time 11/13/19 24 text/htm l Anxiety/DepressionReported by PatientHPIFor context, patient reportsrecent medical event. For associated symptoms, patient reportsanxietybut reportsdenies homicidal ideations,no significant weight gain,no significant weight loss,no visual/auditory hallucinations,no delusions,no shortness of breath, andmood good. For severity, patient reportsdenies suicidal ideations,able to maintain relationships,does not interfere with activities of daily living, andsymptoms improved. For duration, patient reportschronic. For onset/timing, patient reportsgradual. For modifying factors, patient reportsselective serotonin reuptake inhibitor (ssri). Diabetes F/UReported by PatientHPIFor review finger sticks, patient reportsfastin 140andpost dinner: 220. For labs, patient reportslast a1c result: 6.5. For context, patient reportsnormal range of home blood sugars (in the low 100s),seeing eye doctor regularly,checking feet regularly,taking aspirin daily,not missing doses of medications, andno side effects from medications. For associated symptoms, patient reportsno weight gain,no weight loss,no dizziness,no sweats,no headaches,no confusion,no increased thirst,no increased appetite,no increased urination,no blurred vision,no numbness of feet, andno calluses on feet(c/o fatigue).ROS as noted in the HPI She has quit smoking!!! Fran Montemayor, TECHNICAL CABLE JOINTER [address] [facility], [place], [address], [place] [employer]. 11/17/2023 21:29:41 03/23/19 25 text/htm l Diabetes F/UReported by PatientHPIFor review finger sticks, patient reportsfastin 140andpost dinner: 220. For labs, patient reportslast a1c result: 6.5. For context, patient reportsnormal range of home blood sugars (in the low 100s),seeing eye doctor regularly,checking feet regularly,taking aspirin daily,not missing doses of medications, andno side effects from medications. For associated symptoms, patient reportsno weight gain,no weight loss,no dizziness,no sweats,no headaches,no confusion,no increased thirst,no increased appetite,no increased urination,no blurred vision,no numbness of feet, andno calluses on feet(c/o fatigue). Hypertension F/UReported by PatientHPIFor lifestyle, patient reportsnot exercising regularlybut reportslimits sodium intake. For medications, patient reportstaking medications as directed,no side effects from medication, andchecks blood pressure at home, range: (130/70). For associated symptoms, patient reportsno dizziness,no lightheadedness,no chest pain,no shortness of breath,no palpitations,no edema,no calf pain with exertion, andno headache. Medicare Annual Wellness VisitReported by PatientSocial/Behavioral HistoryFor diet and nutrition, patient reportshigh carbohydrate mealsbut reportsdiscussed vitamin and supplement use,discussed portion control, anddiscussed diet improvement. For physical activity, patient reportsdoes not exercise on a regular basisanddeconditioned due to sedentary lifestylebut reportsdiscussed weightbearing activities. For fracture risk, patient reportsno history of fractures,no recent explained fracture, andno sudden unexplained fractures.Mental Status:For depression risk, patient reportsloss of interest in activities,loss of energy, andhistory of depressionbut reportsno significant changes in weight,no sleep disturbances or insomnia,no agitation,no feelings of worthlessness or guilt, andno thoughts of suicide. For orientation, patient reportsno disorientation to time,no [...] to pick them up.Functional AbilityFor hearing, patient reportsloss of hearing: in both ears. For instrumental activities of daily living, patient reportsunable to do house work without assistanceandunable to grocery shop without assistancebut reportsable to manage medications with limited or no assistance,able to manage money with limited or no assistance,able to prepare meals with limited or no assistance, andable to use the phone with limited or no assistance. For vision, patient reportsno vision problems. For [...] toilet with limited or no assistance. For falls risk assessment, patient reportsno frequent falls while walking,no fall in the past year,no fall since last visit, andno dizziness/vertigo. For home safety, patient reportsno unsafe polly hazzards,no unsafe stairs,no unsafe gas appliances,working smoke/co detectors,use of seatbelts,no fire arms,has hand bars in the bathroom/shower,good lighting in the home, andreviewed sun protection(does not drive). Back PainReported by PatientHPIFor location, patient reportsradiation to leg bilateralbut reportslumbar bilateral. For severity, patient reportsworsening,pain level 6/10, andinterferes with sleep. For associated symptoms, patient reportsshortness of breathbut reportsno fever,no weakness,no numbness,no tingling,no unintentional weight loss,no chills,no night sweats,no gait instability,no recent increase in stress,no bowel dysfunction, andno bladder dysfunction. For quality, patient reportssharp,shooting,tightnes s, andburning. For duration, patient reports1 months. For timing, patient reportsacuteandrecurrent episode. For context, patient reportsatraumatic. For alleviating factors, patient reportsrestandotc analgesics. For aggravating factors, patient reportsambulationandstanding. For previous injury, patient reportsno prior back injuryandno prior malignancy. For prior imaging, patient reportsnone. COPDReported by PatientHPI:For aggravating factors, patient reportsworse with exertion. For associated symptoms, patient reportsdyspnea during exertion,decrease in exercise capacity, andfatigue. For onset/timing, patient reportsmultiple times per day. For duration, patient reportschronicandhas noted for years. For severity, patient reportsmoderate(improved since she has stopped smoking). For context, patient reportscigarette smokingandrecurrent bronchopulmonary infections. For alleviating factors, patient reportsrelieved with rest,relieved with oxygen, andrelieved with bronchodilator.ROS as noted in the [facility] Fran Montemayor APRN [address] [place], [address], [employer] 03/23/2024 12:57:24 04/10/19 25 text/htm l Upper Respiratory SymptomsReported by PatientUpper Respiratory SymptomsFor quality, patient reportscongested,dry cough,hurts to swallow, andnasal discharge. For context, patient reportsallergiesandcopdbut reportsno sick contacts,no foreign travel, andnon-smoker. For associated symptoms, patient reportsfatigue,sweats,fever,mo rning cough,sore throat,headache,chills, andmalaisebut reportsno chest pain,no sputum production,no shortness of breath,no wheezing, andno cyanosis. For location, patient reportsthroatandnasal. For severity, patient reportsmild. For duration, patient reportssymptoms lasting less than 2 weeks. For onset/timing, patient reportsgradualanddate of onset: (04/04/24). For alleviating factors, patient reportsanalgesics.ROS as noted in the [facility] Fran Montemayor, JAIR [address] [place], [address], [employer] 04/10/2024 09:58:28 06/23/19 25 text/htm l Diabetes F/UReported by PatientHPIFor review finger sticks, patient reportsfastin 140andpost dinner: 220. For labs, patient reportslast a1c result: 6.5. For context, patient reportsnormal range of home blood sugars (in the low 100s),seeing eye doctor regularly,checking feet regularly,taking aspirin daily,not missing doses of medications, andno side effects from medications. For associated symptoms, patient reportsno weight gain,no weight loss,no dizziness,no sweats,no headaches,no confusion,no increased thirst,no increased appetite,no increased urination,no blurred vision,no numbness of feet, andno calluses on feet(c/o fatigue). Back PainReported by PatientHPIFor location, patient reportsradiation to leg bilateralbut reportslumbar bilateral. For severity, patient reportsworsening,pain level 6/10, andinterferes with sleep. For associated symptoms, patient reportsshortness of breathbut reportsno fever,no weakness,no numbness,no tingling,no unintentional weight loss,no chills,no night sweats,no gait instability,no recent increase in stress,no bowel dysfunction, andno bladder dysfunction. For quality, patient reportssharp,shooting,tightnes s, andburning. For duration, patient reports9 months. For timing, patient reportschronicandrecurrent episode. For alleviating factors, patient reportsrestandotc analgesics. For aggravating factors, patient reportsambulationandstanding. For previous injury, patient reportsno prior back injuryandno prior malignancy. For prior imaging, patient reportsnone. For context, (post herpetic neuralgia). COPDReported by PatientHPI:For aggravating factors, patient reportsworse with exertion. For associated symptoms, patient reportsdyspnea during exertion,decrease in exercise capacity, andfatigue. For onset/timing, patient reportsmultiple times per day. For duration, patient reportschronicandhas noted for years. For severity, patient reportsmoderate(improved since she has stopped smoking). For context, patient reportscigarette smokingandrecurrent bronchopulmonary infections. For alleviating factors, patient reportsrelieved with rest,relieved with oxygen, andrelieved with bronchodilator.ROS as noted in the HPI Fran Montemayor, JAIR [address] [place], [address], [facility] [employer] [facility]. 06/22/2024 09:31:09 10/24/19 25 text/htm l Medicare Annual Wellness VisitReported by PatientSocial/Behavioral HistoryFor diet and nutrition, patient reportsdiet is [...] home.ROS as noted in the HPI Colleen Grande, a patient with a history of chronic obstructive pulmonary disease, type 2 diabetes mellitus, and hypertension, presents with persistent cold-like symptoms since August and recent urinary frequency.Ms. Grande reports experiencing intermittent cold symptoms for the [...] spray.In addition to her respiratory complaints, Ms. Grande notes a recent change in her urinary [...] current medications. Regarding her diabetes management, Ms. Grande reports no issues with swelling in her [...] at night- Cardiovascular: Denies chest pain, palpitations Fran Montemayor APRN [address] [place], [address], [facility] - [employer] 10/23/2024 09:37:54 OBGyn Episode No OBEpisode recorded.
== END 2024-11-13 23:59 ==
LOC: LAB.DROPOF 11-16 08:52
PROVIDERS: PCP Nurse Practitioner Family; Visit Provider Nurse Practitioner Family
DX: R10.9 Unspecified abdominal pain (principal); Z11.4 Encounter for screening for human immunodeficiency virus [HIV]; Z11.59 Encounter for screening for other viral diseases
CPT/HCPCS: 80053; 82248; 85007; 85025; 86803; 87340; 87389

== ENCOUNTER 2024-11-30 10:27 | Outpatient (CLI) | payer MEDICARE, MEDICAID, SELFPAY ==
--- OUTSIDE RECORDS SUMMARY | 2020-04-08 09:46 | XMS_ITS | Encounter Summary ---
Author Organization [facility] Address [address] [place] [address] Care Team Providers Care On Awake Counselor Name Role Phone MontemayorMegan frankel JAIR Primary Care Provider [phone] Encounter Details Date Type Department Care Team (Late st Contact Info) Description 04/08/2020 8:46 AM EST Hospital Encounter [facility] PULMON[facility] CRITICAL CARE MEDICINE [address] [place] [phone] Social History Tobacco Use Types Packs/Day [...] Narrative 04/08/2020 10:21 AM EST Colleen Araujo [id number] 04/08/2020 Chest X-Ray PA & Lateral Indication: [...] documented as of this encounter Care Teams On Awake Counselor Relationship Specialty Start Date End Date Megan Montemayor APRN [address] [place] [address] PCP - General Nurse Practitioner 08/02/19 documented as of this encounter
[2024-11-30 17:04] LABS: Hematocrit 40.0 % (37.0-47.0); Hemoglobin 12.4 g/dL (12.2-16.2); Immature Granulocytes % 0.4 %; Mean Corpuscular HGB Conc 31.0 g/dL (31.8-35.4); Mean Corpuscular Hemoglobin 28.3 pg (27.0-31.2); Mean Corpuscular Volume 91.3 fl (81-99); Nucleated Red Blood Cells % 0 %; Platelet Count 299 K/mm3 (142-424); Red Blood Count 4.38 M/mm3 (4.20-5.40); Red Cell Distribution Width-SD 45.0 fL; White Blood Count 23.9 K/mm3 (4.8-10.8)
[2024-11-30 17:42] LABS: RBC Morphology Normal; Total Cells Counted 100
[2024-11-30 17:46] LABS: Albumin Level 3.6 g/dl (3.5-5.0); Chloride 105 mmol/L (98-107); Potassium 4.7 mmoL/L (3.5-5.1); Sodium 140 mmol/L (136-145)
[2024-11-30 17:49] LABS: Alanine Aminotransferase 27 U/L (12-78); Albumin/Globulin Ratio 1.4 (1.1-1.8); Alkaline Phosphatase 122 U/L (38-126); Anion Gap 14.7 mEq/L (5-15); Aspartate Amino Transferase 28 U/L (14-36); Bilirubin,Total 0.5 mg/dl (0.2-1.3); Blood Urea Nitrogen 14 mg/dl (7-17); Carbon Dioxide 25 mmol/L (22.0-30.0); Creatinine,Serum 1.00 mg/dl (0.52-1.04); Estimated Glomerular Filt Rate 54 ml/min (>60); GFR (African American) 66 ML/MIN (>60); Globulin 2.6 g/dL (1.3-3.2); Total Protein,Serum 6.2 g/dl (6.3-8.2)
[2024-11-30 17:50] LABS: Calcium 8.8 mg/dl (8.4-10.2); Glucose 88 mg/dl (74-100)
--- OUTSIDE RECORDS SUMMARY | 2024-12-02 10:32 | XMS_ITS | Clinical Summary ---
Author Organization 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 Narrative 02/01/2020 2:04 PM EST Procedure:MM MAMMO DIGITAL HECTOR SCREEN BILAT ~ Z12.31-Encounter for screening mammogram for malignant neoplasm of [id number] ~ MM MAMMO DIGITAL HECTOR SCREEN BILAT Bilateral CC and MLO view(s) were taken. There are scattered fibroglandular densities. Prior study comparison: Compared with prior studies the most recent being outside films from [facility] dated 12/31 06/14. No mammographic evidence of malignancy. ~ Procedure Note Claribel Chris MD - 02/01/2020 Procedure:MM MAMMO DIGITAL HECTOR SCREEN BILAT ~ Z12.31-Encounter for screening mammogram for malignant neoplasm of [id number]-[id number]-CM ~ MM MAMMO DIGITAL HECTOR SCREEN BILAT Bilateral CC and MLO view(s) were taken. There are scattered fibroglandular densities. Prior study comparison: Compared with prior studies the most recentbeing outside films from [facility] dated 12/31 06/14. No mammographic evidence of malignancy. ~ IMPRESSION: Negative ([id number]) ~ RECOMMENDATION: Routine screening mammogram in 1 [...] the next mammogram, in accordance with the [employer] and the Society of Breast Imaging recommendations. us Megan Montemayor APRN IMG MAMMOGRAPHY ORDERABLES Fin al Result from Last 3 Months or Most Recently Relevant to Health Maintenance Insurance MEDICARE [place] PART A AND B
--- OUTSIDE RECORDS SUMMARY | 2024-12-02 10:32 | XMS_ITS | Data Portability ---
Author Organization [facility] [employer] [place] - [facility] Address [address] [place] [address] Assessment Encounter Date Assessment Date Assessment LastModified [...] management - Schedule low-dose chest CT at [facility] - Obtain urinalysis to rule out UTI [...] and vaccinations. Plan: - Schedule mammogram at [facility] - Schedule annual low-dose chest CT at [facility] - Advise patient to receive flu vaccine [...] Continue current antidepressant medications: Wellbutrin and Zoloft sierra [email or web address] Not available 10/23/2024 09:37:00 Plan of Treatment Reminders Order Date Submit Date Provider Last Modified By Organization Details Last Modified Time Details Appointments None recorded. Lab urinalysis complete, reflex culture 2024 025 [facility] ([facility]), [address] [place] [address], [address], 19:07:26 HbA1c (hemoglobin A1c), blood [address], [address], 5 08:33:40 CMP, serum or plasma 2024 025 [facility] ([facility]), [address] [place] [address], [address], 5 19:07:26 CBC w/ auto diff 2024 025 [facility] ([facility]), [address] [place] [address], [address], 5 19:07:25 HbA1c (hemoglobin A1c), blood [address], [address], 5 09:15:06 rapid flu (A+B) [address], [address] [place] [address], [address], 5 09:40:11 rapid SARS CoV 2 Ag, QL, IA, upper respiratory specimen [address], [address] [place] [address], [address], 5 09:40:11 TSH, ultra-sensi tive, serum 2024 025 [facility] [place], [address], 5 03:06:24 HbA1c (hemoglobin A1c), blood [address], [address] [place] [address], [address], 5 11:37:04 CMP, serum or plasma 2024 025 [facility] [address] [place], [address], 5 03:06:21 albumin/cre atinine, mass ratio, urine 2024 025 [facility] ([facility]), [address] [place], [address], 5 03:06:23 lipid panel, serum 2024 025 [facility] ([facility]), [address] [place], [address], 5 03:06:22 CBC w/ auto diff 2024 025 [facility] [place], [address], 5 03:06:21 iron + TIBC + ferritin, serum 2024 025 [facility] ([facility]), [address] [facility], [place], [address], 5 03:06:20 cobalamin and folate panel, serum 2024 025 [facility] ([facility]), [address] [facility], [place], [address], 5 03:06:23 HbA1c (hemoglobin A1c), blood 2023 024 [facility], [address] [place] [address], [address], 4 09:23:32 Referral director of player personnel referral - DIABETIC EYE EXAM [address], [address] [facility], [place], [address], 5 10:49:43 physical therapist referral 2024 025 [facility], [address] [facility], [place], [address], 5 20:06:05 Procedures None recorded. Surgeries None recorded. Imaging MAMMO, screening, digital, bilateral - same day as LDCT please [address] Centralized Scheduling, [address] [place], [address], 5 11:27:21 LDCT, chest, for lung cancer screening - Secondary dx: F17.210; same day as mammo please [address] Centralized Scheduling, [address] [place], [address], 5 11:27:21 Medication Orders azithromyci n 250 mg tablet 2024 025 [facility], [address] [place] [address], [address], 5 15:15:52 prednisone 20 mg tablet 2024 025 [facility], [address] [place] [address], [address], 5 15:15:53 lidocaine 5 % topical patch 2024 025 [facility], [address] [place] [address], [address], 5 09:29:32 Zithromax Z-Srini 250 mg tablet 2024 025 [facility], [address] [place] [address], [address], 5 09:25:05 isosorbide mononitrate ER 30 mg tablet,exte nded release 24 hr 2024 025 [facility], [address] [place] [address], [address], 5 11:23:05 amlodipine 10 mg tablet 2024 025 [facility], [address] [place] [address], [address], 5 11:23:01 metformin ER 500 mg tablet,exte nded release 24 hr 2024 025 [facility], [address] [place] [address], [address], 5 11:23:04 Trelegy Ellipta 100 mcg-62.5 mcg-25 mcg powder for inhalation 2024 025 [facility], [address] [place] [address], [address], 5 14:03:34 sertraline 100 mg tablet 2023 [facility] [place], [address] [place] [address], [address], 4 14:39:58 Jardiance 10 mg tablet 2023 [facility] [place], [address] [place] [address], [address], 14:43:40 Patient TargetsNo targets recorded. Patient Instructions Encounter Date Encounter Id Patient Instructions Last Modified By Organization Details Last Modified Time 10/23/2024 [id number] Quitting Tobacco : Care Instructions Not available 10/23/2024 08:33:39 Discussed and explained advance directives such as standard forms to the patient and caregiver. Face to face discussion lasted for a duration of _5__ minutes. Not available 10/23/2024 08:25:49 Reason for Referral Physical Therapist Referral for Low back pain Referring Physician: [facility], Encounter Date: 03/23/2024 Record Retrieval Specialist Referral for Typ e 2 diabetes mellitus DIABETIC EYE EXAM Referring Physician: [facility], Encounter Date: 06/22/2024 Results Created Date Observation Date Name Description Value Unit Range Abnormal Flag Note LastModifiedBy Organization Detail LastModifiedTime 11/13/19 24 11/13/2023 HbA1c (hemo globi n A1c), blood HbA1c 6.6 Not Available [address], [address], 11/13/2023 09:05:54 03/23/1903/24/2024 FE+TI BC+FE R iron 84 ug/dL 27-139 normal Not Available [facility] ([facility]) [address] [facility], [place], [address], 03/25/2024 03:06:20 03/23/192025 FE+TI BC+FE R ferritin 53 NG/mL 15-150 normal Not Available [facility] ([facility]) [address] [place], [address], 03/25/2024 03:06:20 03/23/19 25 03/25/2024 FE+TI BC+FE R iron bind.cap.(TI BC) 363 ug/dL 250-45 0 normal Not Available [facility] ([facility]) [address] [place], [address], 03/25/2024 03:06:20 03/23/19 25 03/25/2024 FE+TI BC+FE R UIBC 279 ug/dL 118-36 9 normal Not Available [facility] ([facility]) [address] [place], [address], 03/25/2024 03:06:20 03/23/19 25 03/25/2024 FE+TI BC+FE R iron saturation 23 % 15-55 normal Not Available [facility] ([facility]) [address] [place], [address], 03/25/2024 03:06:20 03/23/19 25 03/24/2024 CBC WITH DIFFE RENTI AL/PL ATELE T WBC 16.8 x10e3 /uL 3.4-10 .8 above high normal Not Available [facility] ([facility]) [address] [place], [address], 03/25/2024 03:06:21 03/23/19 25 03/24/2024 CBC WITH DIFFE RENTI AL/PL ATELE T RBC 4.23 x10e6 /uL 3.77-5 .28 normal Not Available [facility] ([facility]) [address] [place], [address], 03/25/2024 03:06:21 03/23/19 25 03/24/2024 CBC WITH DIFFE RENTI AL/PL ATELE T hemoglobin 12.3 g/dL 11.1-1 5.9 normal Not Available [facility] ([facility]) [address] [place], [address], 03/25/2024 03:06:21 03/23/19 25 03/24/2024 CBC WITH DIFFE RENTI AL/PL ATELE T hematocrit 38.5 % 34.0-4 6.6 normal Not Available [facility] ([facility]) [address] [place], [address], 03/25/2024 03:06:21 03/23/19 25 03/24/2024 CBC WITH DIFFE RENTI AL/PL ATELE T MCV 91 fL 79-97 normal Not Available [facility] ([facility]) [address] [place], [address], 03/25/2024 03:06:21 03/23/19 25 03/24/2024 CBC WITH DIFFE RENTI AL/PL ATELE T MCH 29.1 pg 26.6-3 3.0 normal Not Available [facility] ([facility]) [address] [place], [address], 03/25/2024 03:06:21 03/23/19 25 03/24/2024 CBC WITH DIFFE RENTI AL/PL ATELE T MCHC 31.9 g/dL 31.5-3 5.7 normal Not Available [facility] ([facility]) [address] [place], [address], 03/25/2024 03:06:21 03/23/19 25 03/24/2024 CBC WITH DIFFE RENTI AL/PL ATELE T RDW 12.1 % 11.7-1 5.4 Not Available [facility] ([facility]) [address] [place], [address], 03/25/2024 03:06:21 03/23/19 25 03/24/2024 CBC WITH DIFFE RENTI AL/PL ATELE T platelets 323 x10e3 /uL 150-45 0 normal Not Available [facility] ([facility]) [address] [facility], [place], [address], 03/25/2024 03:06:21 03/23/19 25 03/24/2024 CBC WITH DIFFE RENTI AL/PL ATELE T neutrophils 32 % not estab. normal Not Available [facility] ([facility]) [address] [facility], [place], [address], 03/25/2024 03:06:21 03/23/19 25 03/24/2024 CBC WITH DIFFE RENTI AL/PL ATELE T lymphs 59 % not estab. normal Not Available [facility] ([facility]) [address] [facility], [place], [address], 03/25/2024 03:06:21 03/23/19 25 03/24/2024 CBC WITH DIFFE RENTI AL/PL ATELE T monocytes 7 % not estab. normal Not Available [facility] ([facility]) [address] [facility], [place], [address], 03/25/2024 03:06:21 03/23/19 25 03/24/2024 CBC WITH DIFFE RENTI AL/PL ATELE T eos 1 % not estab. normal Not Available [facility] ([facility]) [address] [place], [address], 03/25/2024 03:06:21 03/23/19 25 03/24/2024 CBC WITH DIFFE RENTI AL/PL ATELE T basos 1 % not estab. normal Not Available [facility] ([facility]) [address] [place], [address], 03/25/2024 03:06:21 03/23/19 25 03/24/2024 CBC WITH DIFFE RENTI AL/PL ATELE T immature cells SIZE CUTTER Not Available [facility] ([facility]) [address] [place], [address], 03/25/2024 03:06:21 03/23/19 25 03/24/2024 CBC WITH DIFFE RENTI AL/PL ATELE T neutrophils (absolute) 5.3 x10e3 /uL 1.4-7. 0 normal Not Available [facility] ([facility]) [address] [place], [address], 03/25/2024 03:06:21 03/23/19 25 03/24/2024 CBC WITH DIFFE RENTI AL/PL ATELE T lymphs (absolute) 10.0 x10e3 /uL 0.7-3. 1 above high normal Not Available [facility] ([facility]) [address] [place], [address], 03/25/2024 03:06:21 03/23/19 25 03/24/2024 CBC WITH DIFFE RENTI AL/PL ATELE T monocytes(ab solute) 1.1 x10e3 /uL 0.1-0. 9 above high normal Not Available [facility] ([facility]) [address] [place], [address], 03/25/2024 03:06:21 03/23/19 25 03/24/2024 CBC WITH DIFFE RENTI AL/PL ATELE T eos (absolute) 0.2 x10e3 /uL 0.0-0. 4 normal Not Available [facility] ([facility]) [address] [place], [address], 03/25/2024 03:06:21 03/23/19 25 03/24/2024 CBC WITH DIFFE RENTI AL/PL ATELE T baso (absolute) 0.1 x10e3 /uL 0.0-0. 2 normal Not Available [facility] ([facility]) [address] [place], [address], 03/25/2024 03:06:21 03/23/19 25 03/24/2024 CBC WITH DIFFE RENTI AL/PL ATELE T immature granulocytes 0 % not estab. Not Available [facility] ([facility]) [address] [facility], [place], [address], 03/25/2024 03:06:21 03/23/19 25 03/24/2024 CBC WITH DIFFE RENTI AL/PL ATELE T immature grans (abs) 0.0 x10e3 /uL 0.0-0. 1 Not Available [facility] ([facility]) [address] [facility], [place], [address], 03/25/2024 03:06:21 03/23/19 25 03/24/2024 CBC WITH DIFFE RENTI AL/PL ATELE T NRBC SIZE CUTTER Not Available [facility] ([facility]) [address] [facility], [place], [address], 03/25/2024 03:06:21 03/23/19 25 03/24/2024 CBC WITH DIFFE RENTI AL/PL ATELE T hematology comments: SIZE CUTTER Not Available [facility] ([facility]) [address] [facility], [place], [address], 03/25/2024 03:06:21 03/23/19 25 03/24/2024 COMP. METAB OLIC PANEL (14) glucose 87 mg/dL 70-99 normal Not Available [facility] ([facility]) [address] [place], [address], 03/25/2024 03:06:21 03/23/19 25 03/24/2024 COMP. METAB OLIC PANEL (14) BUN 17 mg/dL 8-27 normal Not Available [facility] ([facility]) [address] [place], [address], 03/25/2024 03:06:21 03/23/19 25 03/24/2024 COMP. METAB OLIC PANEL (14) creatinine 0.96 mg/dL 0.57-1 .00 normal Not Available [facility] ([facility]) [address] [facility] [place], [address], 03/25/2024 03:06:21 03/23/19 25 03/24/2024 COMP. METAB OLIC PANEL (14) eGFR 62 mL/mi n/1.7 3 >59 normal Not Available [facility] ([facility]) [address] [place], [address], 03/25/2024 03:06:21 03/23/19 25 03/24/2024 COMP. METAB OLIC PANEL (14) BUN/creatini ne ratio 18 12-28 normal Not Available [facility] ([facility]) [address] [facility] [place], [address], 03/25/2024 03:06:21 03/23/19 25 03/24/2024 COMP. METAB OLIC PANEL (14) sodium 142 mmol/ L 134-14 4 normal Not Available [facility] ([facility]) [address] [facility] [place], [address], 03/25/2024 03:06:21 03/23/19 25 03/24/2024 COMP. METAB OLIC PANEL (14) potassium 5.2 mmol/ L 3.5-5. 2 normal Not Available [facility] ([facility]) [address] [facility] [place], [address], 03/25/2024 03:06:21 03/23/19 25 03/24/2024 COMP. METAB OLIC PANEL (14) chloride 106 mmol/ L 96-106 normal Not Available [facility] ([facility]) [address] [facility] [place], [address], 03/25/2024 03:06:21 03/23/19 25 03/24/2024 COMP. METAB OLIC PANEL (14) carbon dioxide, total 23 mmol/ L 20-29 normal Not Available [facility] ([facility]) [address] [facility] [place], [address], 03/25/2024 03:06:21 02/10/20 25 03/24/2024 COMP. METAB OLIC PANEL (14) calcium 8.8 mg/dL 8.7-10 .3 normal Not Available [facility] ([facility]) [address] [place], [address], 03/25/2024 03:06:21 03/23/19 25 03/24/2024 COMP. METAB OLIC PANEL (14) protein, total 6.3 g/dL 6.0-8. 5 normal Not Available [facility] ([facility]) [address] [place], [address], 03/25/2024 03:06:21 03/23/19 25 03/24/2024 COMP. METAB OLIC PANEL (14) albumin 4.2 g/dL 3.8-4. 8 normal Not Available [facility] ([facility]) [address] [place], [address], 03/25/2024 03:06:21 03/23/19 25 03/24/2024 COMP. METAB OLIC PANEL (14) globulin, total 2.1 g/dL 1.5-4. 5 Not Available [facility] ([facility]) [address] [facility] [place], [address], 03/25/2024 03:06:21 03/23/19 25 03/24/2024 COMP. METAB OLIC PANEL (14) bilirubin, total 0.2 mg/dL 0.0-1. 2 normal Not Available [facility] ([facility]) [address] [facility] [place], [address], 03/25/2024 03:06:21 03/23/19 25 03/24/2024 COMP. METAB OLIC PANEL (14) alkaline phosphatase 115 IU/L 44-121 normal Not Available [facility] ([facility]) [address] [facility] [place], [address], 03/25/2024 03:06:21 03/23/19 25 03/24/2024 COMP. METAB OLIC PANEL (14) AST (SGOT) 19 IU/L 0-40 normal Not Available [facility] ([facility]) [address] [facility] [place], [address], 03/25/2024 03:06:21 03/23/19 25 03/24/2024 COMP. METAB OLIC PANEL (14) ALT (SGPT) 23 IU/L 0-32 normal Not Available [facility] ([facility]) [address] [place], [address], 03/25/2024 03:06:21 03/23/19 25 03/24/2024 LIPID PANEL cholesterol, total 138 mg/dL 100-19 9 normal Not Available [facility] ([facility]) [address] [place], [address], 03/25/2024 03:06:22 03/23/19 25 03/24/2024 LIPID PANEL triglyceride s 90 mg/dL 0-149 normal Not Available [facility] ([facility]) [address] [place], [address], 03/25/2024 03:06:22 03/23/19 25 03/24/2024 LIPID PANEL HDL cholesterol 49 mg/dL >39 normal Not Available [facility] ([facility]) [address] [place], [address], 03/25/2024 03:06:22 03/23/19 25 03/24/2024 LIPID PANEL VLDL cholesterol jeff 17 mg/dL 5-40 Not Available [facility] ([facility]) [address] [place], [address], 03/25/2024 03:06:22 03/23/19 25 03/24/2024 LIPID PANEL LDL chol calc ([facility]) 72 mg/dL 0-99 Not Available [facility]) [address] [place], [address], 03/25/2024 03:06:22 03/23/19 25 03/24/2024 LIPID PANEL LDL calc comment: SIZE CUTTER Not Available [facility] ([facility]) [address] [facility], [place], [address], 03/25/2024 03:06:22 03/23/19 25 03/24/2024 ALBUM IN/CR EATIN INE RATIO ,URIN E creatinine, urine 141.4 mg/dL not estab. normal Not Available [facility] ([facility]) [address] [place], [address], 03/25/2024 03:06:23 03/23/19 25 03/24/2024 ALBUM IN/CR EATIN INE RATIO ,URIN E albumin, urine 55.0 ug/mL not estab. Not Available [facility] ([facility]) [address] [facility], [place], [address], 03/25/2024 03:06:23 03/23/19 25 03/24/2024 ALBUM IN/CR EATIN INE RATIO ,URIN E alb/creat ratio 39 mg/g_ creat 0-29 above high normal Lindsey l: 0 - 29 Moder ately incre ased: 30 - 300 Sever mitra incre ased: >300 Not Available [facility] ([facility]) [address] [facility], [place], [address], 03/25/2024 03:06:23 03/23/19 25 03/24/2024 VITAM IN B12 AND FOLAT E vitamin B12 619 pg/mL 232-12 45 normal Not Available [facility] ([facility]) [address] [place], [address], 03/25/2024 03:06:23 03/23/19 25 03/24/2024 VITAM IN B12 AND FOLAT E folate (folic acid), serum 11.9 NG/mL >3.0 normal A serum folat e lux ntrat ion of less than 3.1 ng/mL is consi dered to repre sent clini jeff defic iency . Not Available [facility] ([facility]) [address] [facility], [place], [address], 03/25/2024 03:06:23 03/23/19 25 03/24/2024 TSH RFX ON ABNOR MAL TO FREE T4 TSH 4.380 uIU/m L 0.450- 4.500 normal Not Available [facility] ([facility]) [address] [facility], [place], [address], 03/25/2024 03:06:24 03/23/19 25 03/23/2024 HbA1c (hemo globi n A1c), blood HbA1c 6.7 Not Available [address], [address], 03/23/2024 11:29:05 04/10/19 25 04/10/2024 rapid SARS CoV 2 Ag, QL, IA, upper respi rator y speci men SARS CoV Ag negati ve Not Available [address], [address], 04/10/2024 09:14:02 04/10/19 25 04/10/2024 rapid flu (A+B) Flu A negati ve Not Available [address], [address], 04/10/2024 09:13:55 04/10/19 25 04/10/2024 rapid flu (A+B) Flu B negati ve Not Available [address], [address], 04/10/2024 09:13:55 06/23/19 25 06/22/2024 HbA1c (hemo globi n A1c), blood HbA1c 6.2 Not Available [address], [address], 06/22/2024 08:18:16 10/24/19 25 10/23/2024 HbA1c (hemo globi n A1c), blood HbA1c 6.4 Not Available [address], [place], [address], 10/23/2024 08:20:45 10/24/19 24 10/24/2023 MAMMO , scree viktor, bilat eral [facility] [address] [place] [address] Phone: Fax: Name: COLLEEN GRANDE Exam Date: 024 : [birth year] Age 72 years Gender : F Access ion: [id number] Physic stephanie: FRAN MONTEMAYOR Facili ty: [facility] Facili ty HSV: Outpat ient Exam: SCREEN [...] by: Chloe Santos Thank you for referr ing COLLEEN GRANDE to [facility]. Legall y authen ticate d by CHIQUIS ANDREWS MD 10-23 14:23: 00 CC'ed Logic: Orderi ng Provid er: CARSON PETERS CC Provid er: CARSON PETERS Attend ing Provid er: CARSON PETERS Referr ing Provid er: CARSON PETERS Admitt ing Provid er: CARSON PETERS [id number] [facility] Centralized Scheduling [address] , [place], [address], 02/25/2024 11:02:57 10/24/19 24 10/24/2023 MAMMO , joe hoang, bilat eral No observ ation record ed. [facility] (Radiology) [address] [place], [address], 10/29/2023 11:31:12 10/24/19 24 10/24/2023 LDCT, chest , for lung cance r joe [facility] [address] [facility] [place] [address] Phone: Fax: Name: COLLEEN GRANDE Exam Date: 024 : [birth year] Age 72 years Gender : F Access ion: [id number] Physic stephanie: FRAN MONTEMAYOR Facili ty: [facility] Facili ty HSV: Outpat ient Exam: CT [...] e dedica dhara imagin g follow -up. [id number] . COMPAR JASON: Chest CT dated 023 [...] cific. LUNG RADS CLASSI FICATI ON: 2 (benig n findin gs) FOLLOW -UP RECOMM ENDATI ON: In view of the increa sing axilla ry nodes, repeat noncon trast chest CT is recomm ended in 6 months in reeval uation . Electr onical ly signed by: Leo barber MD 2023 02:40 PM EDT RP Workst ation: SEALWR [id number] Dictat ed By: Leo Lockhart Transc ribed By: Transc ribed On: 2:10 PM Electr onical ly signed by: Leo Lockhart Thank you for referr COLLEEN Qureshi to [facility]. Legall y authen ticate d by LISSY MCCLENDON MD 10-23 14:10: 08 CC'ed Logic: Orderi ng Provid er: CARSON PETERS CC Provid er: CARSON PETERS Attend ing Provid er: CARSON PETERS Referr ing Provid er: CARSON PETERS Admitt ing Provid er: CARSON PETERS [facility] (Radiology) [address], [place], [address], 10/25/2023 16:31:38 10/24/19 24 10/24/2023 LDCT, chest , for lung cance r scree viktor No observ ation record ed. [facility] Centralized Scheduling [address] [place], [address], 10/29/2023 11:31:12 Result Notes None recorded. Problems Name Problem SNOMED Code Status Onset Date Resolution Date Notes Provider Name and Address Organization Details Recorded Time Tobacco dependen ce caused by cigarett es 86251060700 442176 Active 2019 Problem Code: F17.210; Problem Code Type: ICD-10; Fran Montemayor APRN [address] [place], [address] , [employer] 5 09:30:26 Type 2 diabetes mellitus without complica tion 260488621 Active 2019 Not Available [facility] 3 09:26:15 Atherosc lerosis of coronary artery without angina pectoris 49682121224 4103 Active 2019 Not Available [facility] 3 09:26:15 Chronic obstruct davida pulmonar y disease 66125412 Active 2019 Problem Code: J44.9; Problem Code Type: ICD-10; Not Available [facility] 3 09:26:15 Finding of general energy 090325391 Completed 201908/30/2019 Problem Code: R53.83; Problem Code Type: ICD-10; Fran Montemayor APRN [address] [place], [address] , [employer] 2 15:54:08 Body mass index 30+ - obesity 530858987 Completed 201911/29/2020 NVH14Uel es: 'Z68.3'; Fran Montemayor APRN [address] [place], [address] , [employer] 5 09:36:22 Nausea and vomiting 43477940 Completed 201904/18/2022 Problem Code: R11.2; Problem Code Type: ICD-10; MAXINE magaña, [employer] 3 09:26:06 Diarrhea 49016044 Completed 201904/18/2022 Problem Code: R19.7; Problem Code Type: ICD-10; MAXINE magaña, [employer] 3 09:26:06 Elevated blood-pr essure reading without diagnosi s of hyperten [place] 329259209 Completed 201908/30/2019 Not Available [facility] 2 22:17:12 Hyperten sive disorder 81304664 Active 2019 Problem Code: I10; Problem Code Type: ICD-10; Not Available [facility] 3 09:26:15 Transien t cerebral ischemia 372063990 Active 2019 Not Available [facility] 3 09:26:15 Disorder of upper respirat ory system 673609096 Completed 201912/15/2019 Problem Code: J06.9; Problem Code Type: ICD-10; Fran Montemayor APRN [address] [place] [address], [address] , [employer] 2 15:54:05 Herpes zoster 7252607 Completed 201903/11/2020 Problem Code: B02.9; Problem Code Type: ICD-10; Not Available [facility] 2 22:17:10 Influenz a vaccine needed [id number] 06 Completed 201907/22/2020 Problem Code: Z23; Problem Code Type: ICD-10; Fran Montemayor APRN [address] [place] [address], [address] , [employer] 2 15:54:17 Herpes zoster 4648573 Completed 201903/11/2020 Problem Code: B02.9; Problem Code Type: ICD-10; Not Available [facility] 2 22:17:10 Screenin g mammogra phy Completed 201903/11/2020 Problem Code: Z12.31; Problem Code Type: ICD-10; Fran Montemayor APRN [address] [place], [address] , [employer] 2 15:54:21 Gastroes ophageal reflux disease without esophagi tis 472366287 Active 2020 Not Available [employer] 3 09:26:15 Acute exacerba tion of chronic obstruct davida pulmonar y disease 721967643 Completed 202003/11/2020 Problem Code: J44.1; Problem Code Type: ICD-10; Fran Montemayor APRN [address] [place] [address], [address] , [employer] 4 08:30:26 Acute-on -chronic respirat ory failure 22805170 Completed 202011/29/2020 Problem Code: J96.21; Problem Code Type: ICD-10; Not Available [facility] 2 22:17:11 Iron deficien cy anemia 31759291 Active 2020 Problem Code: D50.9; Problem Code Type: ICD-10; Not Available [facility] 3 09:26:15 Herpes zoster 6429709 Active 2020 Problem Code: B02.9; Problem Code Type: ICD-10; Not Available [facility] 3 09:26:15 Influenz a vaccine needed 83057800076 06 Completed 202012/30/2020 Problem Code: Z23; Problem Code Type: ICD-10; Fran Montemayor APRN [address] [place] [address], [address] , [employer] 2 15:54:17 Body mass index 30+ - obesity 216482572 Active 2020 Problem Code: Z68.34; Problem Code Type: ICD-10; Fran Montemayor APRN [address] [place] [address], [address] , [employer] 5 09:36:22 Moderate recurren t major depressi on 21387822 Active 2023 Fran Montemayor APRN [address] [place] [address], [address] , [employer] 4 09:35:42 Type 2 diabetes mellitus 80047430 Active 2024 Fran Montemayor APRN [address] [place] [address], [address] , [employer] 5 09:13:27 Problem Notes None recorded. Procedures Surgical History Date Name Laterality Status Provider Name and Address Organization Details Recorded Time 4 Most Recent Mammogram completed MAXINE MORTON [employer] 11/13/2023 09:05:32 section completed JANY [employer] 08/29/2022 11:48:21 Carpal Tunnel Surgery completed [facility] [employer] 08/29/2022 11:48:37 Imaging Results None recorded. Procedure Notes None recorded. Medical Equipment None Reported. Allergies Allergen ID Allergen Name Allergen Category Reaction Reaction Severity Criticality Documentation Date Start Date Code Code System Note Provider Name and Address Organization Details Recorded Time 84685 Substance with morphinan structure and opioid receptor agonist mechanism of action (substanc e) medicatio n Not available Not available Not available 10/17/2021 36382 9000 SNOMED Catherine Briggssandra magaña [employer] 3 13:59:54 93647 sulfameth azine medicatio n Not available Not available Not available 10/17/2021 57336 RxNorm Not Available [facility] 2 22:56:51 03530 acetamino phen / hydrocodo ne medicatio n Not available Not available Not available 10/17/2021 20573 2 RxNorm Not Available [facility] 2 22:56:51 22199 codeine medicatio n Not available Not available Not available 10/17/2021 2670 RxNorm Not Available [facility] 2 22:56:51 26735 acetamino phen / oxycodone medicatio n Not available Not available Not available 10/17/2021 39024 3 RxNorm Not Available [facility] 2 22:56:51 Medications Name Sig Start Date [...] Available Not Available No t Available dextrometho maryhan-erlindaf enesin 10 mg-100 mg/5 mL oral liquid [...] propionate 50 mcg/actuati on nasal spray,suspe nsion Nolan 1 spray every day by intranasa l [...] Updated DateTime 5 154.94 cm 35.6 kg/m2 83985.1 7 g 79 /min 94 % 94 % 115/71 mm[Hg] [employer] 5 11:28:12 Date Recorded Body height Body mass index (BMI) Body weight Body temperature Heart rate Oxygen saturation Oxygen saturation in Arterial blood by Pulse oximetry Systolic And Diastolic Provider Name and Address Organization Details Last Updated DateTime 5 154.94 cm 35.3 kg/m2 64081.7 7 g 98.8 [degF] 64 /min 90 % 90 % 120/69 mm[Hg] [employer] 5 09:20:35 Date Recorded Body height Body mass index (BMI) Body weight Body temperature Heart rate Oxygen saturation Oxygen saturation in Arterial blood by Pulse oximetry Systolic And Diastolic Provider Name and Address Organization Details Last Updated DateTime 5 154.94 cm 35.4 kg/m2 30686.2 1 g 98 [degF] 65 /min 92 % 92 % 110/61 mm[Hg] MAXINE MYNEAR [employer] 5 09:11:01 Date Recorded Body height Body mass index (BMI) Body weight Body temperature Heart rate Oxygen saturation Oxygen saturation in Arterial blood by Pulse oximetry Systolic And Diastolic Systolic And Diastolic Provider Name and Address Organization Details Last Updated DateTime 5 154.94 cm 35.1 kg/m2 06501.1 8 g 98.8 [degF] 69 /min 91 % 91 % 125/45 mm[Hg] 117/52 mm[Hg] MAXINE MYLaunchRockAimee [employer] 5 08:20:01 Date Recorded Body height Body mass index (BMI) Body weight Body temperature Heart rate Oxygen saturation Oxygen saturation in Arterial blood by Pulse oximetry Systolic And Diastolic Provider Name and Address Organization Details Last Updated DateTime 4 154.94 cm 34.8 kg/m2 39600 g 98 [degF] 69 /min 92 % 92 % 132/67 mm[Hg] MAXINE [employer] 4 09:04:26 Social History Question Answer Notes LastModified by Organizat ion Details LastModified Time Tobacco Smoking Status Former Smoker Fran Montemayor, [employer] ENG[employer] [address] [place], [address], [employer] 05/08/2023 10:40:42 Do You Have An Advance Directive? No Information not available 11/06/2021 Is Your Home Air Conditioned? Yes Information not available 11/06/2021 Are You Blind Or Do You Have Difficulty Seeing? No Information not available 11/06/2021 What Is Your Level Of Caffeine Consumption? Occasional [email or web address] Information not available 08/29/2022 Are You A [...] available 11/06/2021 When Did You Quit Smoking? 1-5yearssinamanda lofton Information not available 05/08/2023 Are There Any Guns Present In Your Home? No Information not available 11/06/2021 Do You Have A Medical Power Of Manager Track? No Information not available 11/06/2021 What Was The Date Of Your Most Recent Tobacco Screening? 10/23/2024 Information not available 10/23/2024 What Is Your Current Pack Years? [email or web address] Information not available 08/29/2022 Do You Have [...] Functional Status Question Answer Note LastModified by [employer] ion Details LastModified Time Do you use [...] Paternal Aunt Family history of breast cancer ana paula Not available 11:46:38 Mother Family history of Hypertension [email or web address] Not available 08/29/2022 11:46:48 Mother Family history of hyperlipidem ia Not available 11:46:59 Mother Family history of diabetes mellitus type 2 [email or web address] Not available 11:47:02 Sister Family history of breast cancer [email or web address] Not available 11:46:41 Brother Family history of Hypertension [email or web address] Not available 08/29/2022 11:46:54 Father Family history of malignant neoplasm of lung [email or web address] Not available 11:47:24 Medical History Condition Response [...] PF 3 completed Fran Montemayor APRN [address] [place], [address], [employer] 11/09/2022 10:49:32 Influenza, split virus, quadrivalent, PF 1 completed Not Available [facility] 09/17/2022 09:26:16 pneumococcal polysaccharide PPV23 0 completed Not Available [facility] 09/17/2022 09:26:16 Influenza, split virus, quadrivalent, preservative 0 completed Not Available [facility] 09/17/2022 09:26:15 zoster recombinant 1 completed Not Available [facility] 09/17/2022 09:26:15 RSV, recombinant, protein subunit RSVpreF, adjuvant reconstituted, 0.5 mL, PF 4 completed Fran Montemayor APRN [address] [place], [address], [employer] 05/08/2023 10:57:46 Influenza, high-dose, trivalent, PF 4 completed Fran Montemayor APRN [address] [place], [address], [employer] 11/17/2023 21:24:14 COVID-19, mRNA, LNP-S, PF, 100 mcg/0.5mL dose or 50 mcg/0.25mL dose 1 completed Not Available [facility] 09/17/2022 09:26:16 COVID-19, mRNA, LNP-S, PF, 100 mcg/0.5mL dose or 50 mcg/0.25mL dose 1 completed Not Available [facility] 09/17/2022 09:26:16 Influenza, split virus, quadrivalent, PF 2 completed Fran Montemayor APRN [address] [place], [address], [employer] 11/07/2021 09:05:09 Past Encounters Encounter ID Performer Location Encounter Start Date Encounter Closed Date Diagnosis/Indication Diagnosis SNOMED-CT Code Diagnosis ICD10 Code Diagnosis IMO Codes Diagnosis Note [id number] Fran Montemayor [place] [address] 10/25/2021 15:31:07 10/25/2021 16:50:04 Acute exacerbation of chronic obstructive pulmonary disease 523826562 J44.1 continue nebs QID, mucinex BID, push fluids, cool mist vaporizer [id number] Fran Montemayor [place] [address] 0 11/06/2021 13:14:19 11/06/2021 14:38:18 Chronic obstructive pulmonary disease 50408111 J44.9 Type 2 erick betes mellitus 55579667 E11.9 Essential hypertension 68413235 I10 Administra tion of influenza vaccine 11178628 Z23 [id number] Fran Montemayor [place] [address] 0 12/29/2021 10:31:00 12/29/2021 11:16:18 Acute upper respiratory infection 23359269 J06.9 Acute exac erbation of chronic obstructive pulmonary disease 343236283 J44.1 continue nebs QID, home oxygen prn, mucinex BID, push fluids, cool mist vaporizer, stop smoking [id number] Fran Montemayor[address] [address] 02/14/2022 11:22:22 02/14/2022 12:31:51 Type 2 diabetes mellitus without complication 928416951 E11.9 Dm diet, smoking cessation encouraged . Inconclusi ve mammography finding 5628881163 74862 R92.2 Due for f/up mammo [id number] Fran Montemayor [address] [address] 03/06/2022 10:12:54 03/06/2022 11:44:40 Acute upper respiratory infection 54349993 J06.9 Patient presented with symptoms of upper [...] 2 weeks if symptoms not improving. Fever 840293125 R50.9 Mild dehydration 7413269 119 108 E86.0 [id number] Fran Montemayor [address] [address] 04/18/2022 08:51:30 04/18/2022 10:26:41 Pain in left lower limb 828359013 M79.605 We will order a formal venous duplex. I have again instructed her on smoking cessation, medication compliance , elevation of legs, and use of DHARA hose. She has DHARA hose at home but has not been using them. 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 Chronic ob structive pulmonary disease 24390551 J44.9 Change to Breztri for triple for triple therapy. Failed symbicort and incruse. Atheroscle rosis of coronary artery without angina pectoris 5393318307 85216 I25.10 Hypertensive disorder 38 788728 I10 Adult heal th examination 386782628 Z00.00 Smoker 57912176 F17.200 Moderate r ecurrent major depression 21726752 F33.1 [id number] [place] [address] 05/30/2022 11:10:29 05/30/2022 11:50:58 Middle ear effusion 3852043527 H74.8X9 Patient presents with signs/symp toms of otitis media. Will treat as below. Supportive care reviewed: humidifier use, raise HOB, saline nasal spray, encourage PO fluids. Recommende d acetaminop hen/ibupro fen PRN pain Follow up as below. Nausea 448245026 R11.0 [id number] Fran Montemayor [place] [address] 0 07/11/2022 13:57:48 07/11/2022 15:19:22 Syncope 190710467 R55 Push fluids, avoid heat exposure. Gastroesop hageal reflux disease without esophagitis 720631326 K21.9 Stop omeprazole , start Nexium daily. Lifestyle and dietary modificati ons for acid reflux disease were again emphasized and discussed with her. Low back pain 845141154 M54.50 Home stretching regimen, alternatin g of ice and heat and use of topical diclofenac were instructed and we will begin physical therapy. Essential hypertension 79589816 I10 She needs refills on all of her regular medication s today Mixed hyperlipidemia 267 768138 E78.2 Major depr essive disorder 941099866 F32.9 Nausea 394587050 R11.0 [id number] Fran Montemayor [place]ABILITY [place] [address] 0 07/25/2022 08:39:14 07/25/2022 09:31:46 Cough 37442496 R05.9 Acute exac erbation of chronic obstructive pulmonary disease 780893747 J44.1 continue nebs QID, home oxygen prn, mucinex BID, push fluids, cool mist vaporizer, stop smoking [id number] Fran Montemayor [place] [address] 0 08/08/2022 08:37:30 08/08/2022 09:27:39 Type 2 diabetes mellitus without complication 779168497 E11.9 Dm diet, smoking cessation encouraged . No med changes today. [id number] ELSA GONZALES, [facility] [address] 08/29/2022 11:28:16 08/29/2022 13:47:23 Folliculitis 09445890 L73.9 Herpes zoster 3320956 B0 2.9 [id number] Fran Montemayor [place] [address] 0 09/24/2022 14:14:22 09/24/2022 15:37:38 Acute exacerbation of chronic obstructive pulmonary disease 219484381 J44.1 continue nebs QID, home oxygen prn, mucinex BID, push fluids, cool mist vaporizer, stop smoking Diarrhea 89008409 R19.7 change metformin to extended release Chronic ob structive pulmonary disease 22144000 J44.9 Change to Breztri for triple for triple therapy. Failed symbicort and incruse. Smoker 47254744 F17.200 Diabetes mellitus 284245 09 E11.9 [id number] Fran Montemayor [place] [address] 0 10/24/2022 14:56:02 10/24/2022 17:21:46 Pain of right shoulder joint 6876003799 3740541 M25.511 RICE, xray, start PT, depomedrol IM. Fall on sa me level from tripping 386689308 W01.0XXA Smoker 80498538 F17.200 Decrease nicoderm patch to the 14mcg dose [id number] Fran Montemayor [place] [address] 0 11/09/2022 08:14:22 11/09/2022 09:09:07 Type 2 diabetes mellitus without complication 501227688 E11.9 Dm diet, smoking cessation encouraged . No med changes today. Administra tion of influenza vaccine 45113891 Z23 [id number] [place] [address] 12/04/2022 12:54:13 12/04/2022 13:36:24 Acute urinary tract infection 969109742 N39.0 [id number] [place] [address] 02/06/2023 07:54:52 02/06/2023 09:25:15 Type 2 diabetes mellitus without complication 124086161 E11.9 Dm diet, and increased activity encouraged . Chronic ob structive pulmonary disease 83716049 J44.9 Continue Robert Hypertensive disorder 38 897376 I10 Iron defic iency anemia 32119038 D50.9 Moderate r ecurrent major depression 56263971 F33.1 Increase Zoloft to 100 mg nightly. Continue wellbutrin . Body mass index 30+ - obesity 810192916 Z68.34 History of cerebrovascular accident 909662650 Z86.73 Nausea 209892722 R11.0 [id number] Fran Montemayor[address] 0 05/08/2023 08:11:09 05/08/2023 10:05:25 Type 2 diabetes mellitus without complication 438672967 E11.9 Dm diet, and increased activity encouraged . Gastroesop hageal reflux disease without esophagitis 529138438 K21.9 Change PPI to Protonix daily. GERD dietary and lifestyle modificati on education explained Active or passive immunization 997208933 Z23 Chronic ob structive pulmonary disease 00919885 J44.9 Continue Breztri, nebs, and oxygen at night and prn during the day. She does continue to abstain from smoking. Body mass index 30+ - obesity 237467548 Z68.34 [id number] [place] [address] 08/06/2023 08:15:32 08/06/2023 08:45:17 Type 2 diabetes mellitus without complication 496359078 E11.9 Dm diet, and increased activity encouraged . Hypertensive disorder 38 469901 I10 Screening mammography of bilateral breasts 5085752497 03425 Z12.31 Screening for malignant neoplasm of respiratory tract 674289848 Z12.2 Chronic ob structive pulmonary disease 25181590 J44.9 Continue Breztri, nebs, and oxygen at night and prn during the day. She does continue to abstain from smoking. Body mass index 30+ - obesity 005111832 Z68.34 [id number] Fran Montemayor [place] [address] 11/13/2023 08:46:52 11/13/2023 09:39:06 Type 2 diabetes mellitus without complication 946017824 E11.9 Add jardiance 10 mg daily as she also has CAD. Dm diet, and increased activity encouraged . Administra tion of influenza vaccine 54928513 Z23 Moderate r ecurrent major depression 39410421 F33.1 Mood well controlled on wellbutrin and zoloft. Body mass index 30+ - obesity 120541936 Z68.34 [id number] [place] [address] 03/23/2024 11:19:36 03/23/2024 13:13:51 Adult health examination 097462518 Z00.00 Patient presented to office today for [...] Type 2 erick betes mellitus without complication 676516700 E11.9 Dm diet, and increased activity encouraged . Iron defic iency anemia 59936064 D50.9 Recheck CBC today. Moderate r ecurrent major depression 69449242 F33.1 Mood well controlled on wellbutrin and zoloft. Chronic ob structive pulmonary disease 67564123 J44.9 Breztri too expensive, change to Trelegy, nebs, and oxygen at night and prn during the day. She does continue to abstain from smoking. Essential hypertension 72384940 I10 She needs refills on all of her regular medication s today Low back pain 300662015 M54.50 Home stretching regimen, alternatin g of ice and heat and use of topical diclofenac were instructed and we will begin physical therapy. Body mass index 30+ - obesity 770293027 Z68.34 [id number] Fran Montemayor[address] [address] 04/10/2024 09:11:17 04/10/2024 09:56:43 Acute exacerbation of chronic obstructive pulmonary disease 980295561 J44.1 continue nebs QID, home oxygen prn, mucinex BID, push fluids, cool mist vaporizer, stop smoking Acute pharyngitis 619024 003 J02.9 Discussed potential complicati ons and [...] should return to the clinic for follow-up. [id number] Fran Montemayor [address] [address] 06/22/2024 08:56:36 06/22/2024 09:30:30 Type 2 diabetes mellitus 07842341 E11.9 70944452 No med changes today. Obtain DM eye exam. Herpes zoster 5627984 B0 2.9 Continue valtrex and start lido patches for herpetic neuralgia. [id number] Fran Montemayor APRN [address] [address] 10/23/2024 08:03:13 10/23/2024 12:09:18 Type 2 diabetes mellitus without complication 929417497 E11.9 Dm diet, and increased activity encouraged . Chronic ob structive pulmonary disease 32253550 J44.9 Tx with Zpak and steroids, continue pulmonary toilet Iron defic iency anemia 53699399 D50.9 Recheck CBC today. Hypertensive disorder 38 879171 I10 BP well controlled today Moderate r ecurrent major depression 86813722 F33.1 Mood well controlled on wellbutrin and zoloft. Screening for malignant neoplasm of respiratory tract 826913941 Z12.2 Screening mammography 24 257649 Z12.31 43868821 History an d physical examination, annual for health maintenance 00462262 Z00.00 53404878 Patient presented to office today for their [...] promote healthy living. Increased frequency of urination 438879145 R35.0 665156 Tobacco de pendence caused by cigarettes 5990929347 8673945 F17.030 4076475 Body mass index 30+ - obesity 739216565 E66.9 87362754 Health Concerns Section Related Observation LastModified by Organization Detai ls LastModified Time None Recorded Concern Status LastModified by Organization Details LastModified Time None Recorded Advance Directives Directive N: Payers Insurance Date Sequence Insurance Name Policy Number Policy Chapin Covered Member ID Chapin Member ID Guarantor Name 09/25/2022 SLIDING FEE SCHEDULE - DISCOUNT Colleen Grande 10/21/2024 [place]IKIA [employer] - [facility] Colleen Grande [id number] Colleen Grande 05/06/2023 1 WELL[employer] (MEDICARE REPLACEMENT/AD VANTAGE - HMO) [id number] Colleen Grande [id number] Colleen Grande 08/09/2023 2 MEDICAID-[facility] CHOICES - FFS/TRADITIONA Sophie Grande [id number] Colleen Grande 10/20/2024 1 [place]MEDICARE [place]PLACEMENT HMO) [id number] Colleen Grande [id number] Colleen Grande Notes Date Note Type Note [...] HPI She has quit smoking!!! 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 11/17/2023 21:29:41 03/23/19 25 text/htm l Diabetes [...] the [facility] Fran Montemayor, QUALITY AND RELIABILITY ENGINEER [address] [place], [address], [employer] 03/23/2024 12:57:24 04/10/19 text/htm l Upper Respiratory SymptomsReported by PatientUpper [...] the [facility] Fran Montemayor, QUALITY AND RELIABILITY ENGINEER [address] [place], [address], [employer] 04/10/2024 09:58:28 06/23/19 25 text/htm l Diabetes [...] bronchodilator.ROS as noted in the HPI Fran Montemayor APRN [address] [place], [address], [place] [facility] [employer] 06/22/2024 09:31:09 10/24/19 25 text/htm l Medicare [...] chest pain, palpitations Fran Montemayor APRN [address] [facility], [place], [address], [facility] [employer] 10/23/2024 09:37:54 OBGyn Episode No OBEpisode recorded.
--- OUTSIDE RECORDS SUMMARY | 2024-12-02 10:32 | XMS_ITS | Continuity of Care Document ---
Author Organization [place] - [employer] [facility] Address [address] [place] [address] Assessment Encounter Date Assessment Date Assessment LastModified [...] management - Schedule low-dose chest CT at [place] - Obtain urinalysis to rule out UTI [...] and vaccinations. Plan: - Schedule mammogram at [place] - Schedule annual low-dose chest CT at [place] - Advise patient to receive flu vaccine [...] Continue current antidepressant medications: Wellbutrin and Zoloft [email or web address] Not available 10/23/2024 09:37:00 Plan of Treatment Reminders Order Date Submit Date Provider Last Modified By Organization Details Last Modified Time Details Appointments None recorded. Lab urinalysis complete, reflex culture 2024 025 [facility] [address] [place] [address], [address], 19:07:26 HbA1c (hemoglobin A1c), blood 2024 025 [facility], [address] [place] [address], [id number], 08:33:40 CMP, serum or plasma 2024 025 [facility], [address] [place] [address], [address], 19:07:26 CBC w/ auto diff 2024 025 [facility]), [address] [place] [address], [address], 19:07:25 Referral None recorded. Procedures None recorded. Surgeries None recorded. Imaging MAMMO, screening, digital, bilateral - same day as LDCT please [address] Centralized Scheduling, [address] , [place], [address], 11:27:21 LDCT, chest, for lung cancer screening - Secondary dx: F17.210; same day as mammo please [address] Centralized Scheduling, [address] [place], [address], 11:27:21 Medication Orders azithromyci n 250 mg tablet 2024 025 [facility], [address] [place] [address], [address], 15:15:52 prednisone 20 mg tablet 2024 025 [facility], [address] [place] [address], [address], 15:15:53 Patient TargetsNo targets recorded. Patient Instructions Encounter Date Encounter Id Patient Instructions Last Modified By Organization Details Last Modified Time 10/23/2024 [id number] Quitting Tobacco : Care Instructions Not available [...] n A1c), blood HbA1c 6.4 Not Available [address], [address], 10/23/2024 08:20:45 Result Notes None recorded. Problems Name Problem SNOMED Code Status Onset Date Resolution Date Notes Provider Name and Address Organization Details Recorded Time Tobacco dependen ce caused by cigarett es 04345791251 976767 Active 2019 Problem Code: F17.210; Problem Code Type: ICD-10; Megan Montemayor, JAIR [address] [place], [address] , [facility] [employer] 5 09:30:26 Type 2 diabetes mellitus without complica tion 016104347 Active 2019 Not Available [facility] 3 09:26:15 Atherosc lerosis of coronary artery without angina pectoris 54504970367 4103 Active 2019 Not Available [facility] 3 09:26:15 Chronic obstruct davida pulmonar y disease 10845162 Active 2019 Problem Code: J44.9; Problem Code Type: ICD-10; Not Available [facility] 3 09:26:15 Finding of general energy 099560961 Completed 201908/30/2019 Problem Code: R53.83; Problem Code Type: ICD-10; Megan Montemayor APRN [address] [place] [address], [address] , [employer] 2 15:54:08 Body mass index 30+ - obesity 667408566 Completed 201911/29/2020 NTC09Uwg es: 'Z68.3'; Megan Montemayor APRN [address] [place] [address], [address] , [employer] 5 09:36:22 Nausea and vomiting 88803127 Completed 201904/18/2022 Problem Code: R11.2; Problem Code Type: ICD-10; MAXINE ARREDONDONEAR null, [employer] 3 09:26:06 Diarrhea 04976202 Completed 201904/18/2022 Problem Code: R19.7; Problem Code Type: ICD-10; MAXINE MYNEAR null, [employer] 3 09:26:06 Elevated blood-pr essure reading without diagnosi s of hyperten [place] 066760127 Completed 201908/30/2019 Not Available [facility] 2 22:17:12 Hyperten sive disorder 99188522 Active 2019 Problem Code: I10; Problem Code Type: ICD-10; Not Available [facility] 3 09:26:15 Transien t cerebral ischemia 809088806 Active 2019 Not Available [facility] 3 09:26:15 Disorder of upper respirat ory system 922113102 Completed 201912/15/2019 Problem Code: J06.9; Problem Code Type: ICD-10; Megan Montemayor APRN [address] [place], [address] , [employer] 2 15:54:05 Herpes zoster 1279008 Completed 201903/11/2020 Problem Code: B02.9; Problem Code Type: ICD-10; Not Available [facility] 2 22:17:10 Influenz a vaccine needed 57207744428 06 Completed 201907/22/2020 Problem Code: Z23; Problem Code Type: ICD-10; Megan Montemayor APRN [address] [place] [address], [address] , [employer] 2 15:54:17 Herpes zoster 4292016 Completed 201903/11/2020 Problem Code: B02.9; Problem Code Type: ICD-10; Not Available [facility] 2 22:17:10 Screenin g mammogra phy Completed 201903/11/2020 Problem Code: Z12.31; Problem Code Type: ICD-10; Megan Montemayor APRN [address] [place], [address] , [employer] 2 15:54:21 Gastroes ophageal reflux disease without esophagi tis 488687434 Active 2020 Not Available [facility] 3 09:26:15 Acute exacerba tion of chronic obstruct davida pulmonar y disease 052318870 Completed 202003/11/2020 Problem Code: J44.1; Problem Code Type: ICD-10; Megan Montemayor APRN [address] [place], [address] , [employer]. 4 08:30:26 Acute-on -chronic respirat ory failure 59077168 Completed 202011/29/2020 Problem Code: J96.21; Problem Code Type: ICD-10; Not Available [facility] 2 22:17:11 Iron deficien cy anemia 83284377 Active 2020 Problem Code: D50.9; Problem Code Type: ICD-10; Not Available [facility] 3 09:26:15 Herpes zoster 6813994 Active 2020 Problem Code: B02.9; Problem Code Type: ICD-10; Not Available [facility] 3 09:26:15 Influenz a vaccine needed 05842264622 06 Completed 202012/30/2020 Problem Code: Z23; Problem Code Type: ICD-10; Megan Montemayor APRN [address] [place] [address], [address] [place] [address] , [employer]. 2 15:54:17 Body mass index 30+ - obesity 556346877 Active 2020 Problem Code: Z68.34; Problem Code Type: ICD-10; Meagn Montemayor APRN [address] [place] [address], [address] [place] [address] , [employer]. 5 09:36:22 Moderate recurren t major depressi on 72454650 Active 2023 Megan Montemayor APRN [address] [place] [address], [address] [place] [address] , [employer]. 4 09:35:42 Type 2 diabetes mellitus 06327001 Active 2024 Megan Montemayor APRN [address] [place] [address], [address] [place] [address] , [employer]. 5 09:13:27 Problem Notes None recorded. Procedures Surgical History Date Name Laterality Status Provider Name and Address Organization Details Recorded Time 4 Most Recent Mammogram completed MAXINE MORTON [employer]. 11/13/2023 09:05:32 section completed [employer] 08/29/2022 11:48:21 Carpal Tunnel Surgery completed JANY [employer]. 08/29/2022 11:48:37 Imaging Results None recorded. Procedure Notes None recorded. Medical Equipment None Reported. Allergies Allergen ID Allergen Name Allergen Category Reaction Reaction Severity Criticality Documentation Date Start Date Code Code System Note Provider Name and Address Organization Details Recorded Time 26530 Substance with morphinan structure and opioid receptor agonist mechanism of action (substanc e) medicatio n Not available Not available Not available 10/17/2021 19229 9000 SNOMED Catherine Briggssandra magaña [employer] 3 13:59:54 59642 sulfameth azine medicatio n Not available Not available Not available 10/17/2021 55030 RxNorm Not Available [facility] 2 22:56:51 64209 acetamino phen / hydrocodo ne medicatio n Not available Not available Not available 10/17/2021 77814 2 RxNorm Not Available [facility] 2 22:56:51 21270 codeine medicatio n Not available Not available Not available 10/17/2021 2670 RxNorm Not Available [facility] 2 22:56:51 20214 acetamino phen / oxycodone medicatio n Not available Not available Not available 10/17/2021 74116 3 RxNorm Not Available [facility] 2 22:56:51 Medications Name Sig Start Date [...] Available Not Available No t Available dextrometho rphan-guaif enesin 10 mg-100 mg/5 mL oral liquid [...] propionate 50 mcg/actuati on nasal spray,suspe nsion [place] 1 spray every day by intranasa l [...] meal(s) for 10 days, for pneumonia . 11/124 completed Not Available Not Available Not Available [...] Updated DateTime 5 154.94 cm 35.1 kg/m2 69580.1 8 g 98.8 [degF] 69 /min 91 % 91 % 125/45 mm[Hg] 117/52 mm[Hg] MAXINE MORTON [employer] 5 08:20:01 Social History Question Answer Notes LastModified by Organizat ion Details LastModified Time Tobacco Smoking Status Former Smoker Megan Montemayor, FIXTURE BUILDER [address] [place], [address], [employer] 05/08/2023 10:40:42 Do You Have An Advance Directive? No Information not available 11/06/2021 Is Your Home Air Conditioned? Yes Information not available 11/06/2021 Are You Blind Or Do You Have Difficulty Seeing? No Information not available 11/06/2021 What Is Your Level Of Caffeine Consumption? Occasional [email or web address] Information not available 08/29/2022 Are You A [...] Do You Have A Medical Power Of Hybrid Corn Breeder? No Information not available 11/06/2021 What Was The Date Of Your Most Recent Tobacco Screening? 10/23/2024 Information not available 10/23/2024 What Is Your Current Pack Years? [email or web address] Information not available 08/29/2022 Do You [...] Functional Status Question Answer Note LastModified by [employer] Details LastModified Time Do you use [...] Paternal Aunt Family history of breast cancer [email or web address] Not available 11:46:38 Mother Family history of Hypertension [email or web address] Not available 08/29/2022 11:46:48 Mother Family history of hyperlipidem ia [email or web address] Not available 11:46:59 Mother Family history of diabetes mellitus type 2 [email or web address] Not available 11:47:02 Sister Family history of breast cancer [email or web address] Not available 11:46:41 Brother Family history of Hypertension Not available 08/29/2022 11:46:54 Father Family history of malignant neoplasm of lung [email or web address] Not available 11:47:24 Medical History Condition Response [...] PF 3 completed Megan Montemayor APRN [address] [place], [address], [employer] 11/09/2022 10:49:32 Influenza, split virus, quadrivalent, PF 1 completed Not Available [facility] 09/17/2022 09:26:16 pneumococcal polysaccharide PPV23 0 completed Not Available [facility] 09/17/2022 09:26:16 Influenza, split virus, quadrivalent, preservative 0 completed Not Available [facility] 09/17/2022 09:26:15 zoster recombinant 1 completed Not Available [facility] 09/17/2022 09:26:15 RSV, recombinant, protein subunit RSVpreF, adjuvant reconstituted, 0.5 mL, PF 4 completed Megan Montemayor APRN [address] [place], [address], [employer] 05/08/2023 10:57:46 Influenza, high-dose, trivalent, PF 4 completed Megan Montemayor APRN [address] [place], [address], [facility] [employer] [facility] 11/17/2023 21:24:14 COVID-19, mRNA, LNP-S, PF, 100 mcg/0.5mL dose or 50 mcg/0.25mL dose 1 completed Not Available [facility] 09/17/2022 09:26:16 COVID-19, mRNA, LNP-S, PF, 100 mcg/0.5mL dose or 50 mcg/0.25mL dose 1 completed Not Available [facility] 09/17/2022 09:26:16 Influenza, split virus, quadrivalent, PF 2 completed Megan Montemayor APRN [address] [place], [address], [facility] [employer] 11/07/2021 09:05:09 Past Encounters Encounter ID Performer Location Encounter Start Date Encounter Closed Date Diagnosis/Indication Diagnosis SNOMED-CT Code Diagnosis ICD10 Code Diagnosis IMO Codes Diagnosis Note [id number] Megan Montemayor [address] [address] 10/23/2024 08:03:13 10/23/2024 12:09:18 Type 2 diabetes mellitus without complication 461638944 E11.9 Dm diet, and increased activity encouraged . Chronic ob structive pulmonary disease 28182380 J44.9 Tx with Zpak and steroids, continue pulmonary toilet Iron defic iency anemia 97591523 D50.9 Recheck CBC today. Hypertensive disorder 38 809995 I10 BP well controlled today Moderate r ecurrent major depression 09511736 F33.1 Mood well controlled on wellbutrin and zoloft. Screening for malignant neoplasm of respiratory tract 292300473 Z12.2 Screening mammography 24 451907 Z12.31 68764594 History an d physical examination, annual for health maintenance 45897648 Z00.00 [id number] Patient presented to office today for their [...] promote healthy living. Increased frequency of urination 581421804 R35.0 301241 Tobacco de pendence caused by cigarettes 4296706301 9339398 F17.938 1300462 Body mass index 30+ - obesity 823866234 E66.9 86654308 Health Concerns Section Related Observation LastModified by Organization Detai ls LastModified Time None Recorded Concern Status LastModified by Organization Details LastModified Time None Recorded Payers Encounter Date Sequence Insurance Name Policy Number Policy Chapin Covered Member ID Chapin Member ID Guarantor Name 10/23/2024 1 [place]MEDICARE REPLACEMENT HMO) [id number] Colleen Araujo [id number] Colleen Araujo Notes Date Note Type [...] chest pain, palpitations Megan Montemayor APRN [address] [place], [address], [facility] - [employer] [employer] 10/23/2024 09:37:54 OBGyn Episode No OBEpisode recorded.
--- OUTSIDE RECORDS SUMMARY | 2024-12-02 10:33 | XMS_ITS | Clinical Summary ---
Author Organization [facility] Address [address] [place] [address] Care Team Providers Care Indoor Sports Centre Manager Name Role Phone Montemayor, Megan JAIR Primary Care Provider [phone] Allergies Active Allergy Reactions Criticality Noted Date [...] Day. 10.2 g 5 1 Active Umeclidinium [place] ([employer]ipta) 62.5 MCG/INH aerosol powderIndicatio ns:Mucopurulent [...] Diagnosed Date Coronary artery disease invo lving [place] coronary artery of [place] heart without angina pectoris 06/05/2021 Mixed hyperlipidemia 06/05/2021 Dependence on nocturnal oxygen therapy 1 Obesity (BMI 30-39.9) 03/01/2020 Primary hypertension 08/04/2019 Tobacco abuse 08/04/2019 Hyponatremia 08/03/2019 Left-sided weakness 08/02/2019 COPD (chronic obstructive pulmonary disease) Diabetes Resolved Problems Problem Noted Date Diagnosed Date Resolved Date Pyzeb-bq-vrayqlh respiratory failure 03/01/2020 04/08/2020 Family History Medical [...] Date Last Done Comments DXA SCAN 1949 COVID-19 Vaccine (#1) 1954 DIABETIC EYE EXAM 12/19/1959 DIABETIC FOOT EXAM 12/19/1959 URINE MICROALBUMIN-CREATININE RATIO (uACR) 12/19/1959 TDAP/TD VACCINES (1 - Tdap) 1968 COLOGUARD 1994 COLON CANCER SCREENING 5 LISSETT Yu SIGMOIDOSCOPY [address] COLONOGRAPHY 1994 FIT Testing (1 year) 1994 ANNUAL WELLNESS VISIT 03/07/2020 HEMOGLOBIN A1C 03/07/2020 08/03/2019 HEPATITIS C SCREENING 03/07/2020 ZOSTER VACCINE (2 of 2) 04/20/2020 02/24/2020 LIPID PANEL 08/02/2020 08/03/2019 Pneumococcal Vaccine 50+ (2 of 2 - PCV) 11/17/2020 1 COLORECTAL CANCER SCREENING 03/05/2021 FECAL OCCULT BLOOD TEST 03/05/2021 03/05/2020 MAMMOGRAM 01/22/2022 01/23/2020, 01/23/2020 INFLUENZA VACCINE 09/11/2024 Procedures Procedure Name Priority Date/Time Associated Diagnosis [...] Negative DISK DIFFUSION 03/05/2020 10:41 AM EST [facility] Stool Specimen from rectum / Unknown Collection / Unknown 03/05/2020 9:25 AM EST 03/05/2020 9:25 AM EST Lauren Romero MD BODY FLUIDS AND STOOLS O RDERABLES Final Result Performing Organization Address [facility] de Phone Number [facility]
[address] [place] [address], * (ABNORMAL) Hemoglobin A1c (08/03/2019 5:32 AM EDT) Hemoglobin A1C 6.30(H) 4.80 - 5.60 % 08/03/2019 6:48 AM EDT [facility] Blood Venipuncture / Unknown 08/03/2019 5:32 AM EDT 08/03/2019 6:18 AM EDT Narrative [facility] - 08/03/2019 6:48 AM EDT Hemoglobin A1C Ranges: Increased Risk for Diabetes 5.7% to 6.4% Diabetes >= 6.5% Diabetic Goal < 7.0% Padmini Jessica APRN LAB BLOOD ORDERABLES Final R esult Performing Organization Address City/[facility]/ZIP Co de Phone Number [facility]
[address] [place] [address], * Lipid Panel (08/03/2019 5:32 AM EDT) Total Cholesterol 114 0 - 200 mg/dL 08/03/2019 7:04 AM EDT [facility] Triglycerides 75 0 - 150 mg/dL 08/03/2019 7:04 AM EDT [facility] HDL Cholesterol 43 40 - 60 mg/dL 08/03/2019 7:04 AM EDT [facility] LDL Cholesterol 56 0 - 100 mg/dL 08/03/2019 7:04 AM EDT [facility] VLDL Cholesterol 15 mg/dL 08/03/19 20 7:04 AM EDT [facility] LDL/HDL Ratio 1.30 08/03/2019 7:04 AM EDT [facility] Blood Venipuncture / Unknown 08/03/2019 5:32 AM EDT 08/03/2019 6:18 AM EDT Narrative [facility] - 08/03/2019 7:04 AM EDT [...] APRN LAB BLOOD ORDERABLES Final R esult [facility]
[address] [place] [address], from Last 3 Months or Most Recently Relevant to Health Maintenance Insurance Advance Directives Documents on File Type Date Recorded Patient Documentation Improvement Specialist Expl anation LIVING WILL - SCAN 08/04/2019 [...] Of Support Discussed With: Patient Care Teams Indoor Sports Centre Manager Relationship Specialty Start Date End Date Megan Montemayor APRN [address] [place] [address] PCP - General Nurse Practitioner 08/02/19
== END 2024-11-30 23:59 ==
LOC: LAB.DROPOF 12-02 10:28
PROVIDERS: PCP Nurse Practitioner Family; Visit Provider Nurse Practitioner Family
DX: D72.829 Elevated white blood cell count, unspecified (principal); I10 Essential (primary) hypertension
CPT/HCPCS: 80053; 85007; 85025

== ENCOUNTER 2024-12-03 07:45 | Outpatient (CLI) | payer MEDICARE, MEDICAID, SELFPAY ==
--- OUTSIDE RECORDS SUMMARY | 2020-04-08 09:46 | XMS_ITS | Encounter Summary ---
Author Organization [facility] Address [address] [place] [address] Care Team Providers Care Protective Clothing Issuer Name Role Phone MontemayorMegan frankel JAIR Primary Care Provider [phone] Encounter Details Date Type Department Care Team (Late st Contact Info) Description 04/08/2020 8:46 AM EST Hospital Encounter [facility] PUL[facility]ITICAL CARE MEDICINE [address] [place] [phone] Social History Tobacco Use Types Packs/Day [...] Narrative 04/08/2020 10:21 AM EST Colleen Araujo [id number] 04/08/2020 Chest X-Ray PA & Lateral Indication: [...] documented as of this encounter Care Teams Protective Clothing Issuer Relationship Specialty Start Date End Date Megan Montemayor APRN [address] [place] [address] PCP - General Nurse Practitioner 08/02/19 documented as of this encounter
--- OUTSIDE RECORDS SUMMARY | 2024-12-03 07:49 | XMS_ITS | Clinical Summary ---
Author Organization [facility] Address [address] [place] [address] Care Team Providers Care Payroll Tax Analyst Name Role Phone Montemayor, Megan JAIR Primary Care Provider [phone] Allergies Active Allergy Reactions Criticality Noted Date [...] Day. 10.2 g 5 1 Active Umeclidinium [place] (Incruse Ellipta) 62.5 MCG/INH aerosol powderIndicatio ns:Mucopurulent [...] Diagnosed Date Coronary artery disease invo lving [place] coronary artery of [place] heart without angina pectoris 06/05/2021 Mixed hyperlipidemia 06/05/2021 Dependence on nocturnal oxygen therapy 1 Obesity (BMI 30-39.9) 03/01/2020 Primary hypertension 08/04/2019 Tobacco abuse 08/04/2019 Hyponatremia 08/03/2019 Left-sided weakness 08/02/2019 COPD (chronic obstructive pulmonary disease) Diabetes Resolved Problems Problem Noted Date Diagnosed Date Resolved Date Pjkax-vo-nxzpxen respiratory failure 03/01/2020 04/08/2020 Family History Medical [...] Negative DISK DIFFUSION 03/05/2020 10:41 AM EST [facility] Stool Specimen from rectum / Unknown Collection / Unknown 03/05/2020 9:25 AM EST 03/05/2020 9:25 AM EST Lauren Romero MD BODY FLUIDS AND STOOLS O RDERABLES Final Result Performing Organization Address [facility] de Phone Number [facility]
[address] [place] [address], * (ABNORMAL) Hemoglobin A1c (08/03/2019 5:32 AM EDT) Hemoglobin A1C 6.30(H) 4.80 - 5.60 % 08/03/2019 6:48 AM EDT [facility] Blood Venipuncture / Unknown 08/03/2019 5:32 AM EDT 08/03/2019 6:18 AM EDT Narrative [facility] - 08/03/2019 6:48 AM EDT Hemoglobin A1C Ranges: Increased Risk for Diabetes 5.7% to 6.4% Diabetes >= 6.5% Diabetic Goal < 7.0% Padmini Jessica APRN LAB BLOOD ORDERABLES Final R esult Performing Organization Address City/[facility]/ZIP Co de Phone Number [facility]
[address] [place] [address], * Lipid Panel (08/03/2019 5:32 AM EDT) Total Cholesterol 114 0 - 200 mg/dL 08/03/2019 7:04 AM EDT [facility] Triglycerides 75 0 - 150 mg/dL 08/03/2019 7:04 AM EDT [facility] HDL Cholesterol 43 40 - 60 mg/dL 08/03/2019 7:04 AM EDT [facility] LDL Cholesterol 56 0 - 100 mg/dL 08/03/2019 7:04 AM EDT [facility] VLDL Cholesterol 15 mg/dL 08/03/19 20 7:04 AM EDT [facility] LDL/HDL Ratio 1.30 08/03/2019 7:04 AM EDT [facility] Blood Venipuncture / Unknown 08/03/2019 5:32 AM EDT 08/03/2019 6:18 AM EDT Narrative [facility] - 08/03/2019 7:04 AM EDT Cholesterol [...] APRN LAB BLOOD ORDERABLES Final R esult [facility]
[address] [place] [address], from Last 3 Months or Most Recently Relevant to Health Maintenance Insurance Advance Directives Documents on File Type Date Recorded Patient Test And Research Reactor Operator Expl anation LIVING WILL - SCAN 08/04/2019 [...] Of Support Discussed With: Patient Care Teams Payroll Tax Analyst Relationship Specialty Start Date End Date Megan Montemayor APRN [address] [place] [address] PCP - General Nurse Practitioner 08/02/19
--- OUTSIDE RECORDS SUMMARY | 2024-12-03 07:49 | XMS_ITS | Clinical Summary ---
Author Organization [facility] Address [facility] [place] [address] Phone Care Team Providers Care Seed Potato Cutter Name Role Phone Unavailable Primary Care Provider [...] EST Impressions 02/01/2020 2:04 PM EST Negative ([id number]) ~ RECOMMENDATION: Routine screening mammogram in 1 [...] the next mammogram, in accordance with the [employer] and the Society of Breast Imaging recommendations. Narrative 02/01/2020 2:04 PM EST Procedure:MM MAMMO DIGITAL HECTOR SCREEN BILAT ~ Z12.31-Encounter for screening mammogram for malignant neoplasm of [id number]-LAL-63-CM ~ MM MAMMO DIGITAL HECTOR SCREEN BILAT Bilateral CC and MLO view(s) were taken. There are scattered fibroglandular densities. Prior study comparison: Compared with prior studies the most recent being outside films from [facility] dated 12/31 06/14. No mammographic evidence of malignancy. ~ Procedure Note Claribel Chris MD - 02/01/2020 Procedure:MM MAMMO DIGITAL HECTOR SCREEN BILAT ~ Z12.31-Encounter for screening mammogram for malignant neoplasm of xglizx-DKP-77-CM ~ MM MAMMO DIGITAL HECTOR SCREEN BILAT Bilateral CC and MLO view(s) were taken. There are scattered fibroglandular densities. Prior study comparison: Compared with prior studies the most recentbeing outside films from [facility] dated 12/31 06/14. No mammographic evidence of malignancy. ~ IMPRESSION: Negative ([id number]) ~ RECOMMENDATION: Routine screening mammogram in 1 [...] the next mammogram, in accordance with the [employer] and the Society of Breast Imaging recommendations. us Megan Montemayor APRN IMG MAMMOGRAPHY ORDERABLES Fin al Result from Last 3 Months or Most Recently Relevant to Health Maintenance Insurance MEDICARE [place] PART A AND B
--- NOTE | 2024-12-03 08:00 | CT_ITS ---
FINAL REPORT TECHNIQUE: Axial CT images of the abdomen were obtained with IV contrast only. Coronal reformatted images were also obtained. This study was performed with techniques to keep radiation doses as low as reasonably achievable (ALARA). Individualized dose reduction techniques using automated exposure control or adjustment of mA and/or kV according to the patient''s size were employed. CLINICAL HISTORY: abdominal pain after excessive Tylenol intake COMPARISON: none FINDINGS: The lung bases are clear. Large hiatal hernia is noted. There is a right renal cyst measuring up to 33 mm. The remaining solid abdominal organs are within normal limits. The gallbladder is unremarkable. Bowel is unremarkable. There is no evidence of adenopathy. No abnormal fluid collection is seen. No localized inflammatory processes identified. IMPRESSION: No bowel obstruction or inflammatory changes. Large hiatal hernia. Reviewed, Interpreted and Dictated by Perico Mukherjee MD Transcribed by Radha Foreman Authenticated and [facility]
[2024-12-03] MEDS: IOPAMIDOL-370 (76%);100ML BOTTLE 75 ML IV (08:11)
[2024-12-03] MEDS: SODIUM CHLORIDE 0.9% 10ML SYR (RAD ONLY) 10 ML IV (08:11)
== END 2024-12-03 23:59 | disposition home or self-care (01) ==
LOC: RAD 07:47
PROVIDERS: PCP Nurse Practitioner Family; Visit Provider Nurse Practitioner Family
DX: K44.9 Diaphragmatic hernia without obstruction or gangrene (principal); R10.9 Unspecified abdominal pain; R35.0 Frequency of micturition
CPT/HCPCS: 74160; 87086; 87088; Q9967

== ENCOUNTER 2024-12-29 08:49 | Outpatient (CLI) | payer MEDICARE, MEDICAID, SELFPAY ==
--- OUTSIDE RECORDS SUMMARY | 2020-04-08 08:46 | XMS_ITS | Encounter Summary ---
Author Organization [facility] Address [address] [place] [address] Care Team Providers Care Rock Crusher Name Role Phone MontemayorMegan frankel JAIR Primary Care Provider [phone] Encounter Details Date Type Department Care Team (Late st Contact Info) Description 04/08/2020 8:46 AM EST Hospital Encounter [facility] MEDICINE [address] [place] [phone] Social History Tobacco Use Types Packs/Day Years Used Date Smoking Tobacco: Every Day Cigarettes 1 15 Smokeless Tobacco: Never Alcohol Use Standard Drinks/Week Comments Never 0 (1 standard drink = 0.6 oz pur e alcohol) AUDIT-C Answer Date Recorded Q1: How often do you have a drink containing alc ohol? Never 04/08/2020 Average Number of Drinks Not on file 021 Frequency of Binge Drinking Not on file 03/15 Abuse Screen Answer Date Recorded Unsafe at Home or Work/School Not on file Feels Threatened by Someone? Not on file 10/2022 Does Anyone Keep You from Co ntacting Others or Doint Things Outside the Home? Not on file 11/19/2022 Physical Sign of Abuse Present Not on file 1 Housing Stability Answer Date Recorded Current Living Arrangements Not on file 10/2022 Potentially Unsafe Housing Conditions Not on sammy e 11/19/2022 Family and Community Support Answer Sunil e Recorded Help with Day-to-Day Activities Not on file 11/19/2022 Lonely or Isolated Not on file 11/19/2022 Employment Answer Date Recorded Do you want help finding or keeping work or a brea b? Not on file 11/19/2022 Disabilities Answer Date Recorded Concentrating, Remembering, or Making Decisions Difficulty Not on file 11/19/2022 Doing Errands Independently Difficulty Not on fi le 11/19/2022 Education Answer Date Recorded Help with school or training? Not on file Preferred Language Not on file 11/19/2022 Comments No Sex and Gender Information Value Date Recorded Sex Assigned at Not on file Legal Sex Female 10:06 AM EDT Gender Identity Not on file Sexual Orientation Not on file documented as of this encounter Functional Status documented as of this encounter Plan of Treatment Not on file documented as of this encounter Procedures Procedure Name Priority Date/Time Associated Diagnosis Comments XR CHEST PA AND LATERAL Routine 04/08/2020 8:56 AM EST Mucopurulent chronic bronchitis documented in this encounter Results * XR Chest PA & Lateral (04/08/2020 8:56 AM EST) Anatomical Region Laterality Modality Body, Chest N/A Radiographic Radha ging Narrative 04/08/2020 10:21 AM EST Colleen Araujo [id number] 04/08/2020 Chest X-Ray PA & Lateral Indication: SOB Findings: Lungs are clear. No effusions. Heart and mediastinum unremarkable. No pneumothorax. Interpretation: No acute cardiopulmonary findings Patti Porras DO Please note that portions of this note may have been completed with a voice recognition program. Efforts were made to edit the dictations, but occasionally words are mistranscribed. us Brendon Porras DO IMG DIAGNOSTIC IMAG ING ORDERABLES Final Result documented in this encounter Visit Diagnoses Not on filedocumented in this encounter Additional Health Concerns Infection Onset Date Last Indicated Resolved Time COVID (rule out) 04/04/2020 04/05/2020 04/11/2020 9:10 PM EST documented as of this encounter Care Teams Rock Crusher Relationship Specialty Start Date End Date Megan Montemayor APRN [address] [place] [address] PCP - General Nurse Practitioner 08/02/19 documented as of this encounter
[2024-12-29 17:03] LABS: Hematocrit 41.0 % (37.0-47.0); Hemoglobin 12.6 g/dL (12.2-16.2); Immature Granulocytes % 0.4 %; Mean Corpuscular HGB Conc 30.7 g/dL (31.8-35.4); Mean Corpuscular Hemoglobin 28.1 pg (27.0-31.2); Mean Corpuscular Volume 91.5 fl (81-99); Nucleated Red Blood Cells % 0 %; Platelet Count 268 K/mm3 (142-424); Red Blood Count 4.48 M/mm3 (4.20-5.40); Red Cell Distribution Width-SD 46.3 fL
[2024-12-29 17:11] LABS: White Blood Count 20.8 K/mm3 (4.8-10.8)
[2024-12-29 17:27] LABS: Chloride 108 mmol/L (98-107)
[2024-12-29 17:28] LABS: Albumin Level 4.0 g/dl (3.5-5.0); Potassium 5.0 mmoL/L (3.5-5.1); Sodium 147 mmol/L (136-145)
[2024-12-29 17:30] LABS: Alanine Aminotransferase 29 U/L (12-78); Blood Urea Nitrogen 14 mg/dl (7-17); Creatinine,Serum 1.00 mg/dl (0.52-1.04); Estimated Glomerular Filt Rate 54 ml/min (>60); GFR (African American) 65 ML/MIN (>60)
[2024-12-29 17:31] LABS: Albumin/Globulin Ratio 1.6 (1.1-1.8); Alkaline Phosphatase 97 U/L (38-126); Anion Gap 19.0 mEq/L (5-15); Aspartate Amino Transferase 28 U/L (14-36); Bilirubin,Total 0.4 mg/dl (0.2-1.3); Calcium 9.0 mg/dl (8.4-10.2); Carbon Dioxide 25 mmol/L (22.0-30.0); Globulin 2.5 g/dL (1.3-3.2); Glucose 104 mg/dl (74-100); Total Protein,Serum 6.5 g/dl (6.3-8.2)
[2024-12-29 18:03] LABS: RBC Morphology Normal; Total Cells Counted 100
--- OUTSIDE RECORDS SUMMARY | 2024-12-30 13:12 | XMS_ITS | Clinical Summary ---
Author Organization [facility] Address [address] [place] [address] Care Team Providers Care Sales Coach Name Role Phone Montemayor, Megan JAIR Primary Care Provider [phone] Allergies Active Allergy Reactions Criticality Noted Date [...] Day. 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 06/05/2021 Mixed hyperlipidemia 06/05/2021 Dependence on nocturnal oxygen therapy 1 Obesity (BMI 30-39.9) 03/01/2020 Primary hypertension 08/04/2019 Tobacco abuse 08/04/2019 Hyponatremia 08/03/2019 Left-sided weakness 08/02/2019 COPD (chronic obstructive pulmonary disease) Diabetes Resolved Problems Problem Noted Date Diagnosed Date Resolved Date [id number] respiratory failure 03/01/2020 04/08/2020 Family History Medical [...] EXAM [birth year]/19/1960 DIABETIC FOOT EXAM 12/19/1960 URINE MICROALBUMIN-CREATININ E RATIO (uACR) 12/19/1959 TDAP/TD VACCINES (1 - [...] 03/05/2021 FECAL OCCULT BLOOD TEST 03/05/2021 03/05/2020 INFLUENZA VACCINE 09/11/2024 RSV Vaccine - Adults (1 - 1- dose 75+ series) 2024 MAMMOGRAM Discontinued 01/23/2020, 01/23/2020 Procedures Procedure Name Priority Date/Time Associated Diagnosis [...] Negative DISK DIFFUSION 03/05/2020 10:41 AM EST [facility] Stool Specimen from rectum / Unknown Collection / Unknown 03/05/2020 9:25 AM EST 03/05/2020 9:25 AM EST Lauren Romero MD BODY FLUIDS AND STOOLS O RDERABLES Final Result Performing Organization Address [facility] de Phone Number [facility]
[address] [place] [address], * (ABNORMAL) Hemoglobin A1c (08/03/2019 5:32 AM EDT) Pathologist [facility] Hemoglobin A1C 6.30(H) 4.80 - 5.60 % 08/03/2019 6:48 AM EDT [facility] Blood Venipuncture / Unknown 08/03/2019 5:32 AM EDT 08/03/2019 6:18 AM EDT Narrative [facility] - 08/03/2019 6:48 AM EDT Hemoglobin A1C Ranges: Increased Risk for Diabetes 5.7% to 6.4% Diabetes >= 6.5% Diabetic Goal < 7.0% Padmini Jessica APRN LAB BLOOD ORDERABLES Final R esult Performing Organization Address City/[facility]/ZIP Co de Phone Number [facility]
[address] [place] [address], * Lipid Panel (08/03/2019 5:32 AM EDT) Pathologist [facility] Total Cholesterol 114 0 - 200 mg/dL 08/03/2019 7:04 AM EDT [facility] Triglycerides 75 0 - 150 mg/dL 08/03/2019 7:04 AM EDT [facility] HDL Cholesterol 43 40 - 60 mg/dL 08/03/2019 7:04 AM EDT [facility] LDL Cholesterol 56 0 - 100 mg/dL 08/03/2019 7:04 AM EDT [facility] VLDL Cholesterol 15 mg/dL 08/03/19 7:04 AM EDT [facility] LDL/HDL Ratio 1.30 08/03/2019 7:04 AM EDT [facility] Blood Venipuncture / Unknown 08/03/2019 5:32 AM EDT 08/03/2019 6:18 AM EDT Narrative [facility] - 08/03/2019 7:04 AM EDT Cholesterol [...] APRN LAB BLOOD ORDERABLES Final R esult [facility]
[address] [place] [address], from Last 3 Months or Most Recently Relevant to Health Maintenance Insurance [employer] MED[employer] REPLACEMENT Advance Directives Documents on File Type Date Recorded Patient Cot Assembler Expl anation LIVING WILL - SCAN 08/04/2019 [...] Of Support Discussed With: Patient Care Teams Sales Coach Relationship Specialty Start Date End Date Megan Montemayor APRN [address] [place] [id number] PCP - General Nurse Practitioner 08/02/19
--- OUTSIDE RECORDS SUMMARY | 2024-12-30 13:12 | XMS_ITS | Clinical Summary ---
Author Organization [facility] Address [address] [facility] [place] [address] Phone Care Team Providers Care Vat Packer Name Role Phone Unavailable Primary Care Provider [...] of 2) 12/19/1999 Bone Density Screening 2014 COVID-19 Vaccine ( - 2024-2 6 season) 2024 Influenza Vaccine (#1) 2024 RSV or 60+ (1 - 1-d ose 75+ series) 2024 Hepatitis B Vaccine Aged Out No longe r eligible based on patient's age to complete this topic Meningococcal B Vaccine Aged Out No l onger eligible based on patient's age to complete this topic Insurance MEDICARE [place] PART A AND B
--- OUTSIDE RECORDS SUMMARY | 2024-12-30 13:12 | XMS_ITS | Data Portability ---
Author Organization [employer] [place] - [place] Address [address] [place] [address] Assessment Encounter Date Assessment Date Assessment LastModified [...] management - Schedule low-dose chest CT at [facility] - Obtain urinalysis to rule out UTI [...] and vaccinations. Plan: - Schedule mammogram at [facility] - Schedule annual low-dose chest CT at [facility] - Advise patient to receive flu vaccine [...] Continue current antidepressant medications: Wellbutrin [facility] Zolo[facility] Not available 10/23/2024 09:37:00 Plan of Treatment Reminders Order Date Submit Date Provider Last Modified By Organization Details Last Modified Time Details Appointments None recorded. Lab urinalysis complete, reflex culture 2024 025 [facility] ([place]), [address] [place] [address], [address], 19:07:26 HbA1c (hemoglobin A1c), blood [address], [address], 5 08:33:40 CMP, serum or plasma 2024 025 [facility] ([place]), [address] [place] [address], [address], 5 19:07:26 CBC w/ auto diff 2024 025 [facility] ([place]), [address] [place] [address], [address], 5 19:07:25 HbA1c (hemoglobin A1c), blood [address], [address], 5 09:15:06 rapid flu (A+B) [address], [address] [place] [address], [address], 5 09:40:11 rapid SARS CoV 2 Ag, QL, IA, upper respiratory specimen [address], [address] [place] [address], [address], 5 09:40:11 TSH, ultra-sensi tive, serum 2024 025 [facility] [place], [address], 5 03:06:24 HbA1c (hemoglobin A1c), blood [address], [address] [place] [address], [address], 5 11:37:04 CMP, serum or plasma 2024 025 [facility] [address] [place], [address], 5 03:06:21 albumin/cre atinine, mass ratio, urine 2024 025 PRIDDY [facility] ([place]), [address] [place], [address], 5 03:06:23 lipid panel, serum 2024 025 PRIDDY [facility] ([place]), [address] [place], [address], 5 03:06:22 CBC w/ auto diff 2024 025 [facility] [place], [address], 5 03:06:21 iron + TIBC + ferritin, serum 2024 025 LIZETTE [facility] ([place]), [address] [facility], [place], [address], 5 03:06:20 cobalamin and folate panel, serum 2024 025 LIZETTE [facility] ([place]), [address] [facility], [place], [address], 5 03:06:23 HbA1c (hemoglobin A1c), blood 2023 024 [facility], [address] [place] [address], [address], 4 09:23:32 Referral mixer runner referral - DIABETIC EYE EXAM [address], [address] [facility], [place], [address], 5 10:49:43 physical therapist referral 2024 025 [facility], [address] [facility], [place], [address], 5 20:06:05 Procedures None recorded. Surgeries None recorded. Imaging MAMMO, screening, digital, bilateral - same day as LDCT please [address] Centralized Scheduling, [address] [place], [address], 5 11:27:21 LDCT, chest, for lung cancer screening - Secondary dx: F17.210; same day as mammo please [address] Centralized Scheduling, [address] [place], [address], 5 11:27:21 Medication Orders azithromyci n 250 mg tablet 2024 025 [facility], [address] [place] [address], [address], 5 15:15:52 prednisone 20 mg tablet 2024 025 [facility], [address] [place] [address], [address], 5 15:15:53 lidocaine 5 % topical patch 2024 025 [facility], [address] [place] [address], [address], 5 09:29:32 Zithromax Z-Srini 250 mg tablet 2024 025 [facility], [address] [place] [address], [address], 5 09:25:05 isosorbide mononitrate ER 30 mg tablet,exte nded release 24 hr 2024 025 [facility], [address] [place] [address], [address], 5 11:23:05 amlodipine 10 mg tablet 2024 025 [facility], [address] [place] [address], [address], 5 11:23:01 metformin ER 500 mg tablet,exte nded release 24 hr 2024 025 [facility], [address] [place] [address], [address], 5 11:23:04 Trelegy Ellipta 100 mcg-62.5 mcg-25 mcg powder for inhalation 2024 025 [facility], [address] [place] [address], [address], 5 14:03:34 sertraline 100 mg tablet 2023 [facility], [address] [place] [address], [address], 4 14:39:58 Jardiance 10 mg tablet 2023 [facility], [address] [place] [address], [address], 14:43:40 Patient TargetsNo targets recorded. Patient Instructions Encounter Date Encounter Id Patient Instructions Last Modified By Organization Details Last Modified Time 10/23/2024 [id number] Quitting Tobacco : Care Instructions Not available 10/23/2024 08:33:39 Discussed and explained advance directives such as standard forms to the patient and caregiver. Face to face discussion lasted for a duration of _5__ minutes. Not available 10/23/2024 08:25:49 Reason for Referral Physical Therapist Referral for Low back pain Referring Physician: [facility], Encounter Date: 03/23/2024 [employer] Referral for Typ e 2 diabetes mellitus DIABETIC EYE EXAM Referring Physician: [facility], Encounter Date: 06/22/2024 Results Created Date Observation Date Name Description Value Unit Range Abnormal Flag Note LastModifiedBy Organization Detail LastModifiedTime 11/13/19 24 11/13/2023 HbA1c (hemo globi n A1c), blood HbA1c 6.6 Not Available [address], [address], 11/13/2023 09:05:54 03/23/1903/24/2024 FE+TI BC+FE R iron 84 ug/dL 27-139 normal Not Available [facility] ([facility]) [address] [facility], [place], [address], 03/25/2024 03:06:20 03/23/192025 FE+TI BC+FE R ferritin 53 NG/mL 15-150 normal Not Available [facility] ([facility]) [address] [place], [address], 03/25/2024 03:06:20 03/23/19 25 03/25/2024 FE+TI BC+FE R iron bind.cap.(TI BC) 363 ug/dL 250-45 0 normal Not Available [facility] ([facility]) [address] [place], [address], 03/25/2024 03:06:20 03/23/19 25 03/25/2024 FE+TI BC+FE R UIBC 279 ug/dL 118-36 9 normal Not Available [facility] ([facility]) [address] [place], [address], 03/25/2024 03:06:20 03/23/19 25 03/25/2024 FE+TI BC+FE R iron saturation 23 % 15-55 normal Not Available [facility] ([facility]) [address] [place], [address], 03/25/2024 03:06:20 03/23/19 25 03/24/2024 CBC WITH DIFFE RENTI AL/PL ATELE T WBC 16.8 x10e3 /uL 3.4-10 .8 above high normal Not Available [facility] ([facility]) [address] [place], [address], 03/25/2024 03:06:21 03/23/19 25 03/24/2024 CBC WITH DIFFE RENTI AL/PL ATELE T RBC 4.23 x10e6 /uL 3.77-5 .28 normal Not Available [facility] ([facility]) [address] [place], [address], 03/25/2024 03:06:21 03/23/19 25 03/24/2024 CBC WITH DIFFE RENTI AL/PL ATELE T hemoglobin 12.3 g/dL 11.1-1 5.9 normal Not Available [facility] ([facility]) [address] [place], [address], 03/25/2024 03:06:21 03/23/19 25 03/24/2024 CBC WITH DIFFE RENTI AL/PL ATELE T hematocrit 38.5 % 34.0-4 6.6 normal Not Available [facility] ([facility]) [address] [place], [address], 03/25/2024 03:06:21 03/23/19 25 03/24/2024 CBC WITH DIFFE RENTI AL/PL ATELE T MCV 91 fL 79-97 normal Not Available [facility] ([facility]) [address] [place], [address], 03/25/2024 03:06:21 03/23/19 25 03/24/2024 CBC WITH DIFFE RENTI AL/PL ATELE T MCH 29.1 pg 26.6-3 3.0 normal Not Available [facility] ([facility]) [address] [place], [address], 03/25/2024 03:06:21 03/23/19 25 03/24/2024 CBC WITH DIFFE RENTI AL/PL ATELE T MCHC 31.9 g/dL 31.5-3 5.7 normal Not Available [facility] ([facility]) [address] [place], [address], 03/25/2024 03:06:21 03/23/19 25 03/24/2024 CBC WITH DIFFE RENTI AL/PL ATELE T RDW 12.1 % 11.7-1 5.4 Not Available [facility] ([facility]) [address] [place], [address], 03/25/2024 03:06:21 03/23/19 25 03/24/2024 CBC WITH DIFFE RENTI AL/PL ATELE T platelets 323 x10e3 /uL 150-45 0 normal Not Available [facility] ([facility]) [address] [facility], [place], [address], 03/25/2024 03:06:21 03/23/19 25 03/24/2024 CBC WITH DIFFE RENTI AL/PL ATELE T neutrophils 32 % not estab. normal Not Available [facility] ([facility]) [address] [facility], [place], [address], 03/25/2024 03:06:21 03/23/19 25 03/24/2024 CBC WITH DIFFE RENTI AL/PL ATELE T lymphs 59 % not estab. normal Not Available [facility] ([facility]) [address] [facility], [place], [address], 03/25/2024 03:06:21 03/23/19 25 03/24/2024 CBC WITH DIFFE RENTI AL/PL ATELE T monocytes 7 % not estab. normal Not Available [facility] ([facility]) [address] [facility], [place], [address], 03/25/2024 03:06:21 03/23/19 25 03/24/2024 CBC WITH DIFFE RENTI AL/PL ATELE T eos 1 % not estab. normal Not Available [facility] ([facility]) [address] [place], [address], 03/25/2024 03:06:21 03/23/19 25 03/24/2024 CBC WITH DIFFE RENTI AL/PL ATELE T basos 1 % not estab. normal Not Available [facility] ([facility]) [address] [place], [address], 03/25/2024 03:06:21 03/23/19 25 03/24/2024 CBC WITH DIFFE RENTI AL/PL ATELE T immature cells SPOOL CARRIER Not Available [facility] ([facility]) [address] [place], [address], 03/25/2024 03:06:21 03/23/19 25 03/24/2024 CBC WITH DIFFE RENTI AL/PL ATELE T neutrophils (absolute) 5.3 x10e3 /uL 1.4-7. 0 normal Not Available [facility] ([facility]) [address] [place], [address], 03/25/2024 03:06:21 03/23/19 25 03/24/2024 CBC WITH DIFFE RENTI AL/PL ATELE T lymphs (absolute) 10.0 x10e3 /uL 0.7-3. 1 above high normal Not Available [facility] ([facility]) [address] [place], [address], 03/25/2024 03:06:21 03/23/19 25 03/24/2024 CBC WITH DIFFE RENTI AL/PL ATELE T monocytes(ab solute) 1.1 x10e3 /uL 0.1-0. 9 above high normal Not Available [facility] ([facility]) [address] [place], [address], 03/25/2024 03:06:21 03/23/19 25 03/24/2024 CBC WITH DIFFE RENTI AL/PL ATELE T eos (absolute) 0.2 x10e3 /uL 0.0-0. 4 normal Not Available [facility] ([facility]) [address] [place], [address], 03/25/2024 03:06:21 03/23/19 25 03/24/2024 CBC WITH DIFFE RENTI AL/PL ATELE T baso (absolute) 0.1 x10e3 /uL 0.0-0. 2 normal Not Available [facility] ([facility]) [address] [place], [address], 03/25/2024 03:06:21 03/23/19 25 03/24/2024 CBC WITH DIFFE RENTI AL/PL ATELE T immature granulocytes 0 % not estab. Not Available [facility] ([facility]) [address] [facility], [place], [address], 03/25/2024 03:06:21 03/23/19 25 03/24/2024 CBC WITH DIFFE RENTI AL/PL ATELE T immature grans (abs) 0.0 x10e3 /uL 0.0-0. 1 Not Available [facility] ([facility]) [address] [facility], [place], [address], 03/25/2024 03:06:21 03/23/19 25 03/24/2024 CBC WITH DIFFE RENTI AL/PL ATELE T NRBC SPOOL CARRIER Not Available [facility] ([facility]) [address] [facility], [place], [address], 03/25/2024 03:06:21 03/23/19 25 03/24/2024 CBC WITH DIFFE RENTI AL/PL ATELE T hematology comments: SPOOL CARRIER Not Available [facility] ([facility]) [address] [facility], [place], [address], 03/25/2024 03:06:21 03/23/19 25 03/24/2024 COMP. METAB OLIC PANEL (14) glucose 87 mg/dL 70-99 normal Not Available [facility] ([facility]) [address] [place], [address], 03/25/2024 03:06:21 03/23/19 25 03/24/2024 COMP. METAB OLIC PANEL (14) BUN 17 mg/dL 8-27 normal Not Available [facility] ([facility]) [address] [place], [address], 03/25/2024 03:06:21 03/23/19 25 03/24/2024 COMP. METAB OLIC PANEL (14) creatinine 0.96 mg/dL 0.57-1 .00 normal Not Available [facility] ([facility]) [address] [facility] [place], [address], 03/25/2024 03:06:21 03/23/19 25 03/24/2024 COMP. METAB OLIC PANEL (14) eGFR 62 mL/mi n/1.7 3 >59 normal Not Available [facility] ([facility]) [address] [place], [address], 03/25/2024 03:06:21 03/23/19 25 03/24/2024 COMP. METAB OLIC PANEL (14) BUN/creatini ne ratio 18 12-28 normal Not Available [facility] ([facility]) [address] [facility] [place], [address], 03/25/2024 03:06:21 03/23/19 25 03/24/2024 COMP. METAB OLIC PANEL (14) sodium 142 mmol/ L 134-14 4 normal Not Available [facility] ([facility]) [address] [facility] [place], [address], 03/25/2024 03:06:21 03/23/19 25 03/24/2024 COMP. METAB OLIC PANEL (14) potassium 5.2 mmol/ L 3.5-5. 2 normal Not Available [facility] ([facility]) [address] [facility] [place], [address], 03/25/2024 03:06:21 03/23/19 25 03/24/2024 COMP. METAB OLIC PANEL (14) chloride 106 mmol/ L 96-106 normal Not Available [facility] ([facility]) [address] [facility] [place], [address], 03/25/2024 03:06:21 03/23/19 25 03/24/2024 COMP. METAB OLIC PANEL (14) carbon dioxide, total 23 mmol/ L 20-29 normal Not Available [facility] ([facility]) [address] [facility] [place], [address], 03/25/2024 03:06:21 02/10/20 25 03/24/2024 COMP. METAB OLIC PANEL (14) calcium 8.8 mg/dL 8.7-10 .3 normal Not Available [facility] ([facility]) [address] [place], [address], 03/25/2024 03:06:21 03/23/19 25 03/24/2024 COMP. METAB OLIC PANEL (14) protein, total 6.3 g/dL 6.0-8. 5 normal Not Available [facility] ([facility]) [address] [place], [address], 03/25/2024 03:06:21 03/23/19 25 03/24/2024 COMP. METAB OLIC PANEL (14) albumin 4.2 g/dL 3.8-4. 8 normal Not Available [facility] ([facility]) [address] [place], [address], 03/25/2024 03:06:21 03/23/19 25 03/24/2024 COMP. METAB OLIC PANEL (14) globulin, total 2.1 g/dL 1.5-4. 5 Not Available [facility] ([facility]) [address] [place] [place], [address], 03/25/2024 03:06:21 03/23/19 25 03/24/2024 COMP. METAB OLIC PANEL (14) bilirubin, total 0.2 mg/dL 0.0-1. 2 normal Not Available [facility] ([facility]) [address] [facility] [place], [address], 03/25/2024 03:06:21 03/23/19 25 03/24/2024 COMP. METAB OLIC PANEL (14) alkaline phosphatase 115 IU/L 44-121 normal Not Available [facility] ([facility]) [address] [facility] [place], [address], 03/25/2024 03:06:21 03/23/19 25 03/24/2024 COMP. METAB OLIC PANEL (14) AST (SGOT) 19 IU/L 0-40 normal Not Available [facility] ([facility]) [address] [facility] [place], [address], 03/25/2024 03:06:21 03/23/19 25 03/24/2024 COMP. METAB OLIC PANEL (14) ALT (SGPT) 23 IU/L 0-32 normal Not Available [facility] ([facility]) [address] [place], [address], 03/25/2024 03:06:21 03/23/19 25 03/24/2024 LIPID PANEL cholesterol, total 138 mg/dL 100-19 9 normal Not Available [facility] ([facility]) [address] [place], [address], 03/25/2024 03:06:22 03/23/19 25 03/24/2024 LIPID PANEL triglyceride s 90 mg/dL 0-149 normal Not Available [facility] ([facility]) [address] [place], [address], 03/25/2024 03:06:22 03/23/19 25 03/24/2024 LIPID PANEL HDL cholesterol 49 mg/dL >39 normal Not Available [facility] ([facility]) [address] [place], [address], 03/25/2024 03:06:22 03/23/19 25 03/24/2024 LIPID PANEL VLDL cholesterol jeff 17 mg/dL 5-40 Not Available [facility] ([facility]) [address] [place], [address], 03/25/2024 03:06:22 03/23/19 25 03/24/2024 LIPID PANEL LDL chol calc ([facility]) 72 mg/dL 0-99 Not Available [facility] ([facility]) [address] [place], [address], 03/25/2024 03:06:22 03/23/19 25 03/24/2024 LIPID PANEL LDL calc comment: SPOOL CARRIER Not Available [facility] ([facility]) [address] [facility], [place], [address], 03/25/2024 03:06:22 03/23/19 25 03/24/2024 ALBUM IN/CR EATIN INE RATIO ,URIN E creatinine, urine 141.4 mg/dL not estab. normal Not Available [facility] ([facility]) [address] [place], [address], 03/25/2024 03:06:23 03/23/19 25 03/24/2024 ALBUM IN/CR EATIN INE RATIO ,URIN E albumin, urine 55.0 ug/mL not estab. Not Available [facility] ([facility]) [address] [facility], [place], [address], 03/25/2024 03:06:23 03/23/19 25 03/24/2024 ALBUM IN/CR EATIN INE RATIO ,URIN E alb/creat ratio 39 mg/g_ creat 0-29 above high normal Lindsey l: 0 - 29 Moder ately incre ased: 30 - 300 Sever mitra incre ased: >300 Not Available [facility] ([facility]) [address] [facility], [place], [address], 03/25/2024 03:06:23 03/23/19 25 03/24/2024 VITAM IN B12 AND FOLAT E vitamin B12 619 pg/mL 232-12 45 normal Not Available [facility] ([facility]) [address] [place], [address], 03/25/2024 03:06:23 03/23/19 25 03/24/2024 VITAM IN B12 AND FOLAT E folate (folic acid), serum 11.9 NG/mL >3.0 normal A serum folat e lux ntrat ion of less than 3.1 ng/mL is consi dered to repre sent clini jeff defic iency . Not Available [facility] ([facility]) [address] [facility], [place], [address], 03/25/2024 03:06:23 03/23/19 25 03/24/2024 TSH RFX ON ABNOR MAL TO FREE T4 TSH 4.380 uIU/m L 0.450- 4.500 normal Not Available [facility] ([facility]) [address] [facility], [place], [address], 03/25/2024 03:06:24 03/23/19 25 03/23/2024 HbA1c (hemo globi n A1c), blood HbA1c 6.7 Not Available [address], [address], 03/23/2024 11:29:05 04/10/19 25 04/10/2024 rapid SARS CoV 2 Ag, QL, IA, upper respi rator y speci men SARS CoV Ag negati ve Not Available [address], [address], 04/10/2024 09:14:02 04/10/19 25 04/10/2024 rapid flu (A+B) Flu A negati ve Not Available [address], [address], 04/10/2024 09:13:55 04/10/19 25 04/10/2024 rapid flu (A+B) Flu B negati ve Not Available [address], [address], 04/10/2024 09:13:55 06/23/19 25 06/22/2024 HbA1c (hemo globi n A1c), blood HbA1c 6.2 Not Available [address], [address], 06/22/2024 08:18:16 10/24/19 25 10/23/2024 HbA1c (hemo globi n A1c), blood HbA1c 6.4 Not Available [address], [place], [address], 10/23/2024 08:20:45 10/24/19 24 10/24/2023 MAMMO , scree viktor, bilat eral [facility] [address] [place] [address] Phone: Fax: Name: COLLEEN GRANDE Exam Date: 024 : [birth year] Age 72 years Gender : F Access ion: [id number] Physic stephanie: FRAN MONTEMAYOR Facili ty: [facility] Facili ty HSV: Outpat ient Exam: SCREEN [...] PETERS Admitt ing Provid er: CARSON PETERS [id number] [facility] Centralized Scheduling [address] , [place], [address], 02/25/2024 11:02:57 10/24/19 24 10/24/2023 MAMMO , joe hoang, bilat eral No observ ation record ed. [facility] (Radiology) [address] [place], [address], 10/29/2023 11:31:12 10/24/19 24 10/24/2023 LDCT, chest , for lung cance r [facility] [address] [facility] [place] [address] Phone: Fax: Name: COLLEEN GRANDE Exam Date: 024 : [birth year] Age 72 years Gender : F Access ion: [id number] Physic stephanie: FRAN MONTEMAYOR Facili ty: [facility] Facili ty HSV: Outpat ient Exam: CT [...] e dedica dhara imagin g follow -up. [id number] . COMPAR JASON: Chest CT dated 023 [...] 02:40 PM EDT RP Workst ation: [id number] Dictat ed By: Leo Lockhart Transc ribed By: Transc ribed On: 2:10 PM Electr onical ly signed by: Leo Lockhrat Thank you for referr COLLEEN Qureshi to [facility]. Legall y authen ticate d by LISSY MCCLENDON MD 10-23 14:10: 08 CC'ed Logic: Orderi ng Provid er: CARSON PETERS CC Provid er: CARSON PETERS Attend ing Provid er: CARSON PETERS Referr ing Provid er: CARSON PETERS Admitt ing Provid er: CARSON PETERS [facility] (Radiology) [address], [place], [address], 10/25/2023 16:31:38 10/24/19 24 10/24/2023 LDCT, chest , for lung cance r scree viktor No observ ation record ed. [facility] Centralized Scheduling [address] [place], [address], 10/29/2023 11:31:12 Result Notes None recorded. Problems Name Problem SNOMED Code Status Onset Date Resolution Date Notes Provider Name and Address Organization Details Recorded Time Tobacco dependen ce caused by cigarett es 60268444422 571157 Active 2019 Problem Code: F17.210; Problem Code Type: ICD-10; Fran Montemayor APRN [address] [place], [address] , [employer] 5 09:30:26 Type 2 diabetes mellitus without complica tion 756578587 Active 2019 Not Available [facility] 3 09:26:15 Atherosc lerosis of coronary artery without angina pectoris 82356825007 4103 Active 2019 Not Available [facility] 3 09:26:15 Chronic obstruct davida pulmonar y disease 96399186 Active 2019 Problem Code: J44.9; Problem Code Type: ICD-10; Not Available [facility] 3 09:26:15 Finding of general energy 037892959 Completed 201908/30/2019 Problem Code: R53.83; Problem Code Type: ICD-10; Fran Montemayor APRN [address] [place], [address] , [employer] 2 15:54:08 Body mass index 30+ - obesity 299405930 Completed 201911/29/2020 [id number] es: 'Z68.3'; Fran Montemayor APRN [address] [place], [address] , [employer] 5 09:36:22 Nausea and vomiting 15060540 Completed 201904/18/2022 Problem Code: R11.2; Problem Code Type: ICD-10; MAXINE magaña, [employer] 3 09:26:06 Diarrhea 90360042 Completed 201904/18/2022 Problem Code: R19.7; Problem Code Type: ICD-10; MAXINE magaña, [employer] 3 09:26:06 Elevated blood-pr essure reading without diagnosi s of hyperten [place] 192664160 Completed 201908/30/2019 Not Available [facility] 2 22:17:12 Hyperten sive disorder 40254252 Active 2019 Problem Code: I10; Problem Code Type: ICD-10; Not Available [facility] 3 09:26:15 Transien t cerebral ischemia 938164338 Active 2019 Not Available [facility] 3 09:26:15 Disorder of upper respirat ory system 208230302 Completed 201912/15/2019 Problem Code: J06.9; Problem Code Type: ICD-10; Fran Montemayor APRN [address] [place] [address], [address] , [employer] 2 15:54:05 Herpes zoster 1430948 Completed 201903/11/2020 Problem Code: B02.9; Problem Code Type: ICD-10; Not Available [facility] 2 22:17:10 Influenz a vaccine needed 33117120292 06 Completed 201907/22/2020 Problem Code: Z23; Problem Code Type: ICD-10; Fran Montemayor APRN [address] [place] [address], [address] , [employer] 2 15:54:17 Herpes zoster 1399003 Completed 201903/11/2020 Problem Code: B02.9; Problem Code Type: ICD-10; Not Available [facility] 2 22:17:10 Screenin g mammogra phy Completed 201903/11/2020 Problem Code: Z12.31; Problem Code Type: ICD-10; Fran Montemayor APRN [address] [place], [address] , [employer] 2 15:54:21 Gastroes ophageal reflux disease without esophagi tis 113572690 Active 2020 Not Available [employer] 3 09:26:15 Acute exacerba tion of chronic obstruct davida pulmonar y disease 794087444 Completed 202003/11/2020 Problem Code: J44.1; Problem Code Type: ICD-10; Fran Montemayor APRN [address] [place] [address], [address] , [employer] 4 08:30:26 Acute-on -chronic respirat ory failure 50486921 Completed 202011/29/2020 Problem Code: J96.21; Problem Code Type: ICD-10; Not Available [facility] 2 22:17:11 Iron deficien cy anemia 69021758 Active 2020 Problem Code: D50.9; Problem Code Type: ICD-10; Not Available [facility] 3 09:26:15 Herpes zoster 4638779 Active 2020 Problem Code: B02.9; Problem Code Type: ICD-10; Not Available [facility] 3 09:26:15 Influenz a vaccine needed 19974346329 06 Completed 202012/30/2020 Problem Code: Z23; Problem Code Type: ICD-10; Fran Montemayor APRN [address] [place] [address], [address] , [employer] 2 15:54:17 Body mass index 30+ - obesity 597056985 Active 2020 Problem Code: Z68.34; Problem Code Type: ICD-10; Fran Montemayor APRN [address] [place] [address], [phone] , [employer] 5 09:36:22 Moderate recurren t major depressi on 29196504 Active 2023 Fran Montemayor APRN [address] [place] [address], [address] , [employer] 4 09:35:42 Type 2 diabetes mellitus 61015966 Active 2024 Fran Montemayor APRN [address] [place] [address], [address] , [employer] 5 09:13:27 Problem Notes None recorded. Procedures Surgical History Date Name Laterality Status Provider Name and Address Organization Details Recorded Time 4 Most Recent Mammogram completed MAXINE MORTON [employer] 11/13/2023 09:05:32 section completed JANY [employer] 08/29/2022 11:48:21 Carpal Tunnel Surgery completed [facility] [employer] 08/29/2022 11:48:37 Imaging Results None recorded. Procedure Notes None recorded. Medical Equipment None Reported. Allergies Allergen ID Allergen Name Allergen Category Reaction Reaction Severity Criticality Documentation Date Start Date Code Code System Note Provider Name and Address Organization Details Recorded Time 73302 Substance with morphinan structure and opioid receptor agonist mechanism of action (substanc e) medicatio n Not available Not available Not available 10/17/2021 18888 9000 SNOMED Catherine Briggssandra magaña [employer] 3 13:59:54 25300 sulfameth azine medicatio n Not available Not available Not available 10/17/2021 03441 RxNorm Not Available [facility] 2 22:56:51 74825 acetamino phen / hydrocodo ne medicatio n Not available Not available Not available 10/17/2021 30191 2 RxNorm Not Available [facility] 2 22:56:51 68470 codeine medicatio n Not available Not available Not available 10/17/2021 2670 RxNorm Not Available [facility] 2 22:56:51 60983 acetamino phen / oxycodone medicatio n Not available Not available Not available 10/17/2021 21733 3 RxNorm Not Available [facility] 2 22:56:51 Medications Name Sig Start Date [...] propionate 50 mcg/actuati on nasal spray,suspe nsion [place] 1 spray every day by intranasa l [...] Updated DateTime 5 154.94 cm 35.6 kg/m2 22511.1 7 g 79 /min 94 % 94 % 115/71 mm[Hg] [employer] 5 11:28:12 Date Recorded Body height Body mass index (BMI) Body weight Body temperature Heart rate Oxygen saturation Oxygen saturation in Arterial blood by Pulse oximetry Systolic And Diastolic Provider Name and Address Organization Details Last Updated DateTime 5 154.94 cm 35.3 kg/m2 53239.7 7 g 98.8 [degF] 64 /min 90 % 90 % 120/69 mm[Hg] [employer] 5 09:20:35 Date Recorded Body height Body mass index (BMI) Body weight Body temperature Heart rate Oxygen saturation Oxygen saturation in Arterial blood by Pulse oximetry Systolic And Diastolic Provider Name and Address Organization Details Last Updated DateTime 5 154.94 cm 35.4 kg/m2 15472.2 1 g 98 [degF] 65 /min 92 % 92 % 110/61 mm[Hg] MAXINE MYNEAR [employer] 5 09:11:01 Date Recorded Body height Body mass index (BMI) Body weight Body temperature Heart rate Oxygen saturation Oxygen saturation in Arterial blood by Pulse oximetry Systolic And Diastolic Systolic And Diastolic Provider Name and Address Organization Details Last Updated DateTime 5 154.94 cm 35.1 kg/m2 02031.1 8 g 98.8 [degF] 69 /min 91 % 91 % 125/45 mm[Hg] 117/52 mm[Hg] MAXINE MYT[employer]Aimee [employer] 5 08:20:01 Date Recorded Body height Body mass index (BMI) Body weight Body temperature Heart rate Oxygen saturation Oxygen saturation in Arterial blood by Pulse oximetry Systolic And Diastolic Provider Name and Address Organization Details Last Updated DateTime 4 154.94 cm 34.8 kg/m2 63505 g 98 [degF] 69 /min 92 % 92 % 132/67 mm[Hg] MAXINE ARREDONDONEAR [employer] 4 09:04:26 Social History Question Answer Notes LastModified by Organizat ion Details LastModified Time Tobacco Smoking Status Former Smoker Fran Montemayor, CRANE MANAGER [address] [place], [address], [employer] 05/08/2023 10:40:42 Do You Have An Advance Directive? No Information not available 11/06/2021 Is Your Home Air Conditioned? Yes Information not available 11/06/2021 Are You Blind Or Do You Have Difficulty Seeing? No Information not available 11/06/2021 What Is Your Level Of Caffeine Consumption? Occasional [email or web address] Information not available 08/29/2022 Are You A [...] Do You Have A Medical Power Of Dispensing Operator? No Information not available 11/06/2021 What [...] Functional Status Question Answer Note LastModified by [employer] ion Details LastModified Time Do you use [...] available 11:46:38 Mother Family history of Hypertension [email or web address] Not available 08/29/2022 11:46:48 Mother Family history of hyperlipidem ia [email or web address] Not available 11:46:59 Mother Family history of diabetes mellitus type 2 [email or web address] Not available 11:47:02 Sister Family history of breast cancer [email or web address] Not available 11:46:41 Brother Family history of Hypertension [email or web address] Not available 08/29/2022 11:46:54 Father Family history of malignant neoplasm of lung [email or web address] Not available 11:47:24 Medical History Condition Response [...] PF 3 completed Fran Montemayor APRN [address] [place], [address], [employer] 11/09/2022 10:49:32 Influenza, split virus, quadrivalent, PF 1 completed Not Available [facility] 09/17/2022 09:26:16 pneumococcal polysaccharide PPV23 0 completed Not Available [facility] 09/17/2022 09:26:16 Influenza, split virus, quadrivalent, preservative 0 completed Not Available [facility] 09/17/2022 09:26:15 zoster recombinant 1 completed Not Available [facility] 09/17/2022 09:26:15 RSV, recombinant, protein subunit RSVpreF, adjuvant reconstituted, 0.5 mL, PF 4 completed Fran Montemayor APRN [address] [place], [address], [employer] 05/08/2023 10:57:46 Influenza, high-dose, trivalent, PF 4 completed Fran Montemayor APRN [address] [place], [address], [employer] 11/17/2023 21:24:14 COVID-19, mRNA, LNP-S, PF, 100 mcg/0.5mL dose or 50 mcg/0.25mL dose 1 completed Not Available [facility] 09/17/2022 09:26:16 COVID-19, mRNA, LNP-S, PF, 100 mcg/0.5mL dose or 50 mcg/0.25mL dose 1 completed Not Available [facility] 09/17/2022 09:26:16 Influenza, split virus, quadrivalent, PF 2 completed Fran Montemayor APRN [address] [place], [address], [employer] 11/07/2021 09:05:09 Past Encounters Encounter ID Performer Location Encounter Start Date Encounter Closed Date Diagnosis/Indication Diagnosis SNOMED-CT Code Diagnosis ICD10 Code Diagnosis IMO Codes Diagnosis Note [id number] Fran Montemayor [place] [address] 10/25/2021 15:31:07 10/25/2021 16:50:04 Acute exacerbation of chronic obstructive pulmonary disease 672744925 J44.1 continue nebs QID, mucinex BID, push fluids, cool mist vaporizer [id number] Fran Montemayor [place] [address] 0 11/06/2021 13:14:19 11/06/2021 14:38:18 Chronic obstructive pulmonary disease 47500075 J44.9 Type 2 erick betes mellitus 23750783 E11.9 Essential hypertension 11825373 I10 Administra tion of influenza vaccine 94028760 Z23 [id number] Fran Montemayor [place] [address] 0 12/29/2021 10:31:00 12/29/2021 11:16:18 Acute upper respiratory infection 68696419 J06.9 Acute exac erbation of chronic obstructive pulmonary disease 177105762 J44.1 continue nebs QID, home oxygen prn, mucinex BID, push fluids, cool mist vaporizer, stop smoking [id number] Fran Montemay[address] [address] 02/14/2022 11:22:22 02/14/2022 12:31:51 Type 2 diabetes mellitus without complication 530527979 E11.9 Dm diet, smoking cessation encouraged . Inconclusi ve mammography finding 4778145504 50097 R92.2 Due for f/up mammo [id number] Fran Montemayor [address] [address] 03/06/2022 10:12:54 03/06/2022 11:44:40 Acute upper respiratory infection 57673631 J06.9 Patient presented with symptoms of upper [...] 2 weeks if symptoms not improving. Fever 796155823 R50.9 Mild dehydration 2722949 119 108 E86.0 [id number] Fran Montemayor [address] [address] 04/18/2022 08:51:30 04/18/2022 10:26:41 Pain in left lower limb 404411346 M79.605 We will order a formal venous duplex. I have again instructed her on smoking cessation, medication compliance , elevation of legs, and use of DHARA hose. She has DHARA hose at home but has not been using them. [id number] Fran Montemayor CRANE MANAGER [place] [address] 05/15/2022 09:37:51 05/15/2022 10:34:29 Type 2 diabetes mellitus without complication 983715595 E11.9 Dm diet, smoking cessation encouraged . Chronic ob structive pulmonary disease 79257957 J44.9 Change to Breztri for triple for triple therapy. Failed symbicort and incruse. Atheroscle rosis of coronary artery without angina pectoris 0761089693 84332 I25.10 Hypertensive disorder 38 677746 I10 Adult heal th examination 291400657 Z00.00 Smoker 63318626 F17.200 Moderate r ecurrent major depression 88345682 F33.1 [id number] [place] [address] 05/30/2022 11:10:29 05/30/2022 11:50:58 Middle ear effusion 9763750428 H74.8X9 Patient presents with signs/symp toms of otitis media. Will treat as below. Supportive care reviewed: humidifier use, raise HOB, saline nasal spray, encourage PO fluids. Recommende d acetaminop hen/ibupro fen PRN pain Follow up as below. Nausea 364736386 R11.0 [id number] Fran Montemayor [place] [address] 0 07/11/2022 13:57:48 07/11/2022 15:19:22 Syncope 487982472 R55 Push fluids, avoid heat exposure. Gastroesop hageal reflux disease without esophagitis 171932546 K21.9 Stop omeprazole , start Nexium daily. Lifestyle and dietary modificati ons for acid reflux disease were again emphasized and discussed with her. Low back pain 311654246 M54.50 Home stretching regimen, alternatin g of ice and heat and use of topical diclofenac were instructed and we will begin physical therapy. Essential hypertension 71594442 I10 She needs refills on all of her regular medication s today Mixed hyperlipidemia 267 204039 E78.2 Major depr essive disorder 613343730 F32.9 Nausea 426288774 R11.0 [id number] Fran Montemayor [place] [address] 07/25/2022 08:39:14 07/25/2022 09:31:46 Cough 13664266 R05.9 Acute exac erbation of chronic obstructive pulmonary disease 030520327 J44.1 continue nebs QID, home oxygen prn, mucinex BID, push fluids, cool mist vaporizer, stop smoking [id number] Fran Montemayor [place] [address] 0 08/08/2022 08:37:30 08/08/2022 09:27:39 Type 2 diabetes mellitus without complication 155334120 E11.9 Dm diet, smoking cessation encouraged . No med changes today. [id number] ELSA GONZALES, [facility] [address] 08/29/2022 11:28:16 08/29/2022 13:47:23 Folliculitis 16142436 L73.9 Herpes zoster 7305112 B0 2.9 [id number] Fran Montemayor [place] [address] 0 09/24/2022 14:14:22 09/24/2022 15:37:38 Acute exacerbation of chronic obstructive pulmonary disease 797428521 J44.1 continue nebs QID, home oxygen prn, mucinex BID, push fluids, cool mist vaporizer, stop smoking Diarrhea 62570107 R19.7 change metformin to extended release Chronic ob structive pulmonary disease 77954156 J44.9 Change to Breztri for triple for triple therapy. Failed symbicort and incruse. Smoker 30075004 F17.200 Diabetes mellitus 899715 09 E11.9 [id number] Fran Montemayor [place] [address] 0 10/24/2022 14:56:02 10/24/2022 17:21:46 Pain of right shoulder joint 8130376432 2660847 M25.511 RICE, xray, start PT, depomedrol IM. Fall on sa me level from tripping 946708551 W01.0XXA Smoker 30510553 F17.200 Decrease nicoderm patch to the 14mcg dose [id number] Fran Montemayor [place] [address] 0 11/09/2022 08:14:22 11/09/2022 09:09:07 Type 2 diabetes mellitus without complication 411009409 E11.9 Dm diet, smoking cessation encouraged . No med changes today. Administra tion of influenza vaccine 24968527 Z23 [id number] [place] [address] 12/04/2022 12:54:13 12/04/2022 13:36:24 Acute urinary tract infection 497227599 N39.0 [id number] [place] [address] 02/06/2023 07:54:52 02/06/2023 09:25:15 Type 2 diabetes mellitus without complication 870799434 E11.9 Dm diet, and increased activity encouraged . Chronic ob structive pulmonary disease 05887014 J44.9 Continue Robert Hypertensive disorder 38 679437 I10 Iron defic iency anemia 68713727 D50.9 Moderate r ecurrent major depression 39980262 F33.1 Increase Zoloft to 100 mg nightly. Continue wellbutrin . Body mass index 30+ - obesity 597149355 Z68.34 History of cerebrovascular accident 114019525 Z86.73 Nausea 936751414 R11.0 [id number] Fran Montemayor[address] 0 05/08/2023 08:11:09 05/08/2023 10:05:25 Type 2 diabetes mellitus without complication 999261876 E11.9 Dm diet, and increased activity encouraged . Gastroesop hageal reflux disease without esophagitis 906482021 K21.9 Change PPI to Protonix daily. GERD dietary and lifestyle modificati on education explained Active or passive immunization 952618767 Z23 Chronic ob structive pulmonary disease 06484686 J44.9 Continue Breztri, nebs, and oxygen at night and prn during the day. She does continue to abstain from smoking. Body mass index 30+ - obesity 003072894 Z68.34 [id number] [place] [address] 08/06/2023 08:15:32 08/06/2023 08:45:17 Type 2 diabetes mellitus without complication 515016477 E11.9 Dm diet, and increased activity encouraged . Hypertensive disorder 38 014597 I10 Screening mammography of bilateral breasts 6569787241 45873 Z12.31 Screening for malignant neoplasm of respiratory tract 118286453 Z12.2 Chronic ob structive pulmonary disease 21637938 J44.9 Continue Breztri, nebs, and oxygen at night and prn during the day. She does continue to abstain from smoking. Body mass index 30+ - obesity 595200371 Z68.34 [id number] Fran Montemayor [place] [address] 11/13/2023 08:46:52 11/13/2023 09:39:06 Type 2 diabetes mellitus without complication 203367672 E11.9 Add jardiance 10 mg daily as she also has CAD. Dm diet, and increased activity encouraged . Administra tion of influenza vaccine 86244947 Z23 Moderate r ecurrent major depression 93182817 F33.1 Mood well controlled on wellbutrin and zoloft. Body mass index 30+ - obesity 553690738 Z68.34 [id number] [place] [address] 03/23/2024 11:19:36 03/23/2024 13:13:51 Adult health examination 431352338 Z00.00 Patient presented to office today for [...] Type 2 erick betes mellitus without complication 919104879 E11.9 Dm diet, and increased activity encouraged . Iron defic iency anemia 33891582 D50.9 Recheck CBC today. Moderate r ecurrent major depression 34100035 F33.1 Mood well controlled on wellbutrin and zoloft. Chronic ob structive pulmonary disease 60273656 J44.9 Breztri too expensive, change to Trelegy, nebs, and oxygen at night and prn during the day. She does continue to abstain from smoking. Essential hypertension 66638120 I10 She needs refills on all of her regular medication s today Low back pain 897039075 M54.50 Home stretching regimen, alternatin g of ice and heat and use of topical diclofenac were instructed and we will begin physical therapy. Body mass index 30+ - obesity 867391833 Z68.34 [id number] Fran Montemayor[address] [address] 04/10/2024 09:11:17 04/10/2024 09:56:43 Acute exacerbation of chronic obstructive pulmonary disease 568719459 J44.1 continue nebs QID, home oxygen prn, mucinex BID, push fluids, cool mist vaporizer, stop smoking Acute pharyngitis 347649 003 J02.9 Discussed potential complicati ons and [...] should return to the clinic for follow-up. [id number] Fran Montemayor [address] [address] 06/22/2024 08:56:36 06/22/2024 09:30:30 Type 2 diabetes mellitus 00921172 E11.9 91409204 No med changes today. Obtain DM eye exam. Herpes zoster 2095620 B0 2.9 Continue valtrex and start lido patches for herpetic neuralgia. [id number] Fran Montemayor APRN [address] [address] 10/23/2024 08:03:13 10/23/2024 12:09:18 Type 2 diabetes mellitus without complication 038951121 E11.9 Dm diet, and increased activity encouraged . Chronic ob structive pulmonary disease 96229124 J44.9 Tx with Zpak and steroids, continue pulmonary toilet Iron defic iency anemia 85766444 D50.9 Recheck CBC today. Hypertensive disorder 38 731343 I10 BP well controlled today Moderate r ecurrent major depression 65680853 F33.1 Mood well controlled on wellbutrin and zoloft. Screening for malignant neoplasm of respiratory tract 147801235 Z12.2 Screening mammography 24 892679 Z12.31 40934715 History an d physical examination, annual for health maintenance 91672689 Z00.00 [id number] Patient presented to office today for their [...] promote healthy living. Increased frequency of urination 721807341 R35.0 306879 Tobacco de pendence caused by cigarettes 2637848916 3116898 F17.691 6804911 Body mass index 30+ - obesity 586042431 E66.9 21867114 Health Concerns Section Related Observation LastModified by Organization Detai ls LastModified Time None Recorded Concern Status LastModified by Organization Details LastModified Time None Recorded Advance Directives Directive N: Payers Insurance Date Sequence Insurance Name Policy Number Policy Chapin Covered Member ID Chapin Member ID Guarantor Name 09/25/2022 SLIDING FEE SCHEDULE - DISCOUNT Colleen Grande 10/21/2024 [place] [employer] - [facility] Colleen Grande [id number] Colleen Grande 05/06/2023 1 [employer] (MEDICARE REPLACEMENT/AD VANTAGE - HMO) [id number] Colleen Grande [id number] Colleen Grande 08/09/2023 2 [place] CHO[place] - FFS/TRADITIONA Sophie Grande [id number] Colleen Grande 10/20/2024 1 [place] (MEDICARE REPLACEMENT HMO) [id number] Colleen Grande [id number] Colleen Grande Notes Date Note Type Note [...] HPI She has quit smoking!!! Fran Montemayor, CRANE MANAGER [address] [facility], [place], [address], [place] [email or web address] 11/17/2023 21:29:41 03/23/19 25 text/htm l [...] andrelieved with bronchodilator.ROS as noted in the [facility] Fran Montemayor, CRANE MANAGER [address] [place], [address], [employer] 03/23/2024 12:57:24 04/10/19 text/htm l Upper Respiratory [...] factors, patient reportsanalgesics.ROS as noted in the [facility] Fran Montemayor, CRANE MANAGER [address] [place], [address], [employer] 04/10/2024 09:58:28 06/23/19 25 text/htm l Diabetes [...] in the HPI Fran Montemayor APRN [address] [place], [address], [place] [facility] [email or web address] 06/22/2024 09:31:09 10/24/19 25 text/htm l [...] chest pain, palpitations Fran Montemayor APRN [address] [facility], [place], [address], [facility] [employer] 10/23/2024 09:37:54 OBGyn Episode No OBEpisode recorded.
== END 2024-12-29 23:59 | disposition home or self-care (01) ==
LOC: LAB.DROPOF 12-30 12:16
PROVIDERS: PCP Nurse Practitioner Family; Visit Provider Nurse Practitioner Family
DX: N39.0 Urinary tract infection, site not specified (principal); D72.829 Elevated white blood cell count, unspecified; I10 Essential (primary) hypertension
CPT/HCPCS: 80053; 85007; 85025; 87086